=== PATIENT | female | born 1955 | race Caucasian/White ===

== ENCOUNTER 2019-06-23 09:14 | Outpatient (CLI) | payer OTHER, SELFPAY ==
--- NOTE | ~2019-06-23 | CT_ITS ---
EXAMINATION: CT abdomen pelvis w con DATE: 06/23/2019 10:07 INDICATION: Occult blood in stool. TECHNIQUE: Computed tomography (CT) of the abdomen and pelvis was performed with 100 cc Omnipaque 350 intravenous contrast. Automated exposure control and iterative reconstruction technique were employe d. Exam dose: 1129.53 mGy-cm total exam DLP. COMPARISON: 02/18/2018 CT abdomen pelvis 06/07/2017 complete abdominal ultrasound FINDINGS: Mild tree-in-bud infiltrate in the right lower lobe. The lung bases are otherwise clear. Cardiomegaly. No pericardial or pleural effusion. Diffuse hepatic steatosis. No hepatic, splenic, pancreatic, adrenal or solid renal space-occupying ma ss lesion is evident. Status post cholecystectomy. No bile duct or pancreatic duct dilatation. Minimal pancreatic calcification, consistent with chronic pancreatitis. Occasional bilateral subcentimeter probable renal cysts. No urinary tract calculus or hydroureteronep hrosis. The urinary bladder is largely evacuated. This is bilateral fallopian tube ligation. The uter us and adnexal areas are otherwise unremarkable. Small sliding hiatal hernia. Normal appendix. Diverticulosis of the colon; no CT evidence of diverticulitis. There is atherosclerotic calcification of the abdominal aorta and iliac arteries but no aneurysm. No intraperitoneal or retroperitoneal or pelvic mass lesion or adenopathy or ascites. Small fat-containing umbilical hernia. No suspicious osteolytic or osteoblastic lesions are noted. IMPRESSION: Status post cholecystectomy Hepatic steatosis Minimal pancreatic calcifications suggesting mild chronic pancreatitis Small sliding hiatal hernia Diverticulosis of the colon Mild tree-in-bud infiltrate in the right lower lobe Reviewed, dictated and finalized at [facility]. Reviewed, dictated and finalized at location B. [employer]
--- NOTE | ~2019-06-23 | CT_ITS ---
EXAMINATION: CT chest wo con DATE: 06/23/2019 09:51 INDICATION: Lung nodule follow-up TECHNIQUE: Computed tomography (CT) of the chest was performed without intravenous contrast. Automate d exposure control and iterative reconstruction technique were employed. Exam dose: 219.22 mGy-cm to roxanne exam DLP. COMPARISON: 12/28/2016 two-view chest FINDINGS: Mild bilateral apical scarring. There is patchy areas of right lower lobe tree-in-bud infiltrate. There is a calcified right lower lo be pulmonary granuloma (series 4 image 92). No pulmonary infiltrate or consolidation or pulmonary mass lesion is noted otherwise. Right lobe thyroid focal calcification. There is aortic and great vessel and coronary artery calcification. No thoracic aortic aneurysm. No hilar or mediastinal mass lesion or lymphadenopathy is evident. Normal heart size. No pericardial or pleural effusion. Normal morphology of the adrenal glands. Status post cholecystectomy. Degenerative spurring of the thoracic spine. IMPRESSION: Patchy tree-in-bud infiltrates in the right lower lobe which may be due to infection or pneumonitis Calcified right lower lobe pulmonary granuloma consistent with old granulomatous disease Reviewed, dictated and finalized at [facility]. Reviewed, dictated and finalized at location B. [employer] IMPRESSION: Patchy tree-in-bud infiltrates in the right lower lobe which may b e due to infection or pneumonitis Calcified right lower lobe pulmonary granuloma consistent with old granulomatou s disease
[2019-06-23 09:51] LABS: Blood Urea Nitrogen 12 mg/dL (8-26); Estimated Glomerular Filt Rate 56
== END 2019-06-23 09:15 | disposition home or self-care (01) ==
PROVIDERS: PCP Emergency Medicine; Visit Provider Emergency Medicine
DX: R91.1 Solitary pulmonary nodule (principal); R19.5 Other fecal abnormalities; R91.8 Other nonspecific abnormal finding of lung field; Z90.49 Acquired absence of other specified parts of digestive tract; K76.0 Fatty (change of) liver, not elsewhere classified; K86.89 Other specified diseases of pancreas; K44.9 Diaphragmatic hernia without obstruction or gangrene; K57.90 Diverticulosis of intestine, part unspecified, without perforation or abscess without bleeding
CPT/HCPCS: 71250; 74177; Q9967

== ENCOUNTER → 2019-07-25 14:46 | Outpatient (CLI) | payer OTHER, SELFPAY ==
--- NOTE | ~2019-07-25 | MM_ITS ---
EXAMINATION: MM screening [facility] BI w lauren HISTORY: Screening mammogram TECHNIQUE: Craniocaudal and mediolateral oblique 3-D tomosynthesis images were obtained and synthetic 2-D images were generated. CAD analysis was submitted and interpreted. COMPARISON: 08/13/2017, 06/03/2017, 05/16/2015 BREAST PARENCHYMAL COMPOSITION: There are scattered areas of fibroglandular density. FINDINGS: There is no evidence of suspicious mass, calcification, or architectural distortion to sugg est malignancy in either breast. There has been no suspicious interval change. IMPRESSION: 1. No mammographic evidence of malignancy. 2. Recommend routine screening mammography in one year. BI-RADS Category 1: Negative Reviewed, dictated and finalized at location A.
== END ==
PROVIDERS: PCP Emergency Medicine; Visit Provider Emergency Medicine
DX: Z12.31 Encounter for screening mammogram for malignant neoplasm of breast (principal)
CPT/HCPCS: 77063; 77067

== ENCOUNTER → 2021-09-03 11:48 | Outpatient (CLI) | payer MEDICARE, OTHER, SELFPAY ==
--- NOTE | ~2021-09-03 | XR_ITS ---
EXAMINATION: XR toe 2nd RT min 2V EXAM DATE: 09/03/2021 12:00 INDICATION: Initial encounter following injury, with pain of the right 2nd toe. TECHNIQUE: Right 2nd toe frontal, lateral and oblique projections obtained and reviewed. There is no prior study for comparison. FINDINGS: There are no acute right 2nd toe fractures or dislocations identified. There is no subcuta neous gas. The soft tissue is unremarkable. There are no radiopaque foreign bodies. IMPRESSION: 1. Right 2nd toe exam without acute osseous findings. Reviewed, dictated and finalized at location A.
== END ==
PROVIDERS: PCP Emergency Medicine; Visit Provider Emergency Medicine
DX: M79.674 Pain in right toe(s) (principal)
CPT/HCPCS: 73660

== ENCOUNTER → 2022-11-27 11:16 | Outpatient (CLI) | payer MEDICARE, OTHER, SELFPAY ==
--- NOTE | ~2022-11-27 | MM_ITS ---
EXAMINATION: MM screening [facility] BI w lauren HISTORY: Screening mammogram TECHNIQUE: Craniocaudal and mediolateral oblique 3-D tomosynthesis images were obtained and synthetic 2-D images were generated. CAD analysis was submitted and interpreted. COMPARISON: 07/25/2019 bilateral screening mammogram 08/13/2017 diagnostic left mammogram 06/03/2017 bilateral screening mammogram BREAST PARENCHYMAL COMPOSITION: There are scattered areas of fibroglandular density. FINDINGS: There is no evidence of suspicious mass, calcification, or architectural distortion to sugg est malignancy in either breast. There has been no suspicious interval change. IMPRESSION: 1. No mammographic evidence of malignancy. 2. Recommend routine screening mammography in one year. BI-RADS Category 1: Negative Reviewed, dictated and finalized at location A.
== END ==
PROVIDERS: PCP Family Medicine; Visit Provider Family Medicine
DX: Z12.31 Encounter for screening mammogram for malignant neoplasm of breast (principal)
CPT/HCPCS: 77063; 77067

== ENCOUNTER 2023-03-14 13:30 | Emergency (ER) | payer MEDICARE, OTHER, SELFPAY ==
[2023-03-14 13:44] VITALS: BP 131/58; PULSE 79; RESP 24; TEMP 36.9; O2SAT 100
--- NOTE | 2023-03-14 14:29 | ED.URI ---
HPI - URI/Sore Throat General Chief Complaint: Ear Stated Complaint: right ear not able to hear ,cough Time Seen by Provider: 03/14/23 14:08 Source: patient and RN notes reviewed Mode of arrival: ambulatory Limitations: no limitations History of Present Illness HPI Narrative: Patient presents today with a one-week history of right ear clogging and intermittent pain, cough that is productive in worse at night, nasal congestion. She has been taking Mucinex and saline nasal spray without much relief. She is a smoker. States her 3 grandchildren are sick with similar symptoms Related Data Home Medications Medication Instructions Recorded Confirmed alprazolam 0.5 mg tablet 1.25 mg PO DAILY 08/25/22 03/14/23 aspirin 81 mg tablet,delayed 81 mg PO DAILY 08/25/22 03/14/23 release (Adult Low Dose Aspirin) cholecalciferol (vitamin D3) 10 10 mcg PO DAILY 08/25/22 03/14/23 mcg (400 unit) capsule duloxetine 60 mg capsule,delayed 60 mg PO DAILY 08/25/22 03/14/23 release (Cymbalta) gabapentin 300 mg capsule 300 mg PO BID 08/25/22 03/14/23 multivitamin (Daily Multi-Vitamin 1 tablet PO DAILY 08/25/22 03/14/23 tablet) Allergies Allergy/AdvReac Type Severity Reaction Status Date / Time No Known Allergies Allergy Verified 03/05/23 14:16 Review of Systems Review of Systems: CONSTITUTIONAL: Denies body aches, fever, chills, or sweats. EYES: Denies visual changes, redness, or discharge. ENT: Denies rhinorrhea, sore throat, or otalgia.+ congestion, or pain and muffling CARDIOVASCULAR: Denies chest pain, palpitations, or edema. RESPIRATORY: Denies dyspnea.+ cough GASTROINTESTINAL: Denies abdominal pain, nausea, vomiting, or diarrhea. GENITOURINARY: Denies dysuria or hematuria. SKIN: Denies rash, itching, or wounds. MUSCULOSKELETAL: Denies back pain, joint pain, or myalgia. NEUROLOGIC: Denies headache, numbness, tingling, or weakness. PSYCH: Denies depression or anxiety. [facility] Past Medical History Medical History BMI 34.0-34.9,adult BMI 35.0-35.9,adult Cholecystectomy planned Surgical History Surgical History H/O tubal ligation Family History Family History Sibling Family history of Parkinson's disease Mother Family history of diabetes mellitus in first degree relative Family history of heart disease in male family member before age 55 Family history of thyroid disease Diabetes mellitus Family history of coronary artery disease Acute myocardial infarction Father Family history of heart disease in male family member before age 55 Heart disease Diabetes mellitus Sibling , Covid-19 Obese Social History Social History Smoking packs per day: 1 Smoking cigarettes per day: 20.0 Years smoked: 50 Smoking pack-years: 50.00 Smoking status: Current every day smoker Tobacco type: cigarettes Second hand tobacco smoke exposure: Yes Alcohol intake: current Substance use: never Substance use type: does not use Lack of Transportation: No Lack of Food: Never True Current Housing: I Have Housing Concerned About Future Housing: No Difficulty Paying Gas/Electric Bills: No Difficulty Paying for Meds: No Currently Unemployed: No Education: High School Diploma/GED Difficulty w/ Childcare or Family Care: No Living arrangements: with family Additional living arrangements comments: with daughter Occupation/Education: 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
== END 2023-03-14 14:38 | disposition home or self-care (01) ==
PROVIDERS: Emergency Provider Nurse Practitioner; PCP Family Medicine
DX: J06.9 Acute upper respiratory infection, unspecified (principal); H65.01 Acute serous otitis media, right ear; F17.210 Nicotine dependence, cigarettes, uncomplicated; Z79.82 Long term (current) use of aspirin
CPT/HCPCS: 99213; G0463

== ENCOUNTER 2023-07-27 10:00 | Outpatient (CLI) | payer MEDICARE, OTHER, SELFPAY ==
--- NOTE | ~2023-07-27 | DEXA_ITS ---
Bone Density Report Name: LEXI KIM Age: 67 Sex: Female Ethnicity: White Date of : 1955 Indication: postmenopausal; screening for osteoporosis; Referring Provider: Korin Da Silva Study: Bone densitometry was performed. Exam Date: July 27, 2023 Accession number: [id number] Bone Density: Region BMD T-score Z-score Classification AP Spine (L1-L4) 1.366 2.9 4.8 Normal Femoral Neck (Left) 1.115 2.4 4.0 Normal Total Hip (Left) 1.331 3.2 4.5 Normal Femoral Neck (Right) 1.077 2.1 3.7 Normal Total Hip (Right) 1.217 2.3 3.6 Normal Total Hip Mean 1.274 2.8 4.1 Normal World Health Organization criteria for BMD impression classify patients as: Normal (T-score at or above -1.0), Osteopenia (T-score between -1.0 and -2.5), or Osteoporosis (T-score at or below -2.5). 10-year Fracture Risk: FRAX not reported because: All T-scores for Spine Total, Hip Total, Femoral Neck at or above -1.0 Previous Exams: Region Exam Age BMD T-score BMD Change BMD Change Date g/cm2 vs Baseline vs Previous AP Spine(L1-L4) 07/27/2023 67 1.366 2.9 0.086* 0.086* 07/18/2015 59 1.280 2.1 Total Hip(Left) 07/27/2023 67 1.331 3.2 0.011 0.011 07/18/2015 59 1.320 3.1 Total Hip(Right) 07/27/2023 67 1.217 2.3 -0.019 -0.019 07/18/2015 59 1.236 2.4 *Denotes significance at 95% confidence level, LSC for AP Spine = 0.022 g/cm2, LSC for Total Hip = 0.027 g/cm2 Clinical Information Provided by Patient: Smokes Has used the following medications: Vitamin D, MTV Patient maximum height was 63.3 Menopause Age: 51 No regular weight bearing exercise Drinks caffeinated beverages Onset of menses at age 13 Number of children 2 Impression: The patient has normal bone mass. The patient has risk factors, including: smoking. No significant bone loss was observed. Discussion: LOW RISK OF FRACTURE; BONE DENSITY IS WELL ABOVE THE MINIMUM DESIRABLE LEVEL AND ABOVE AVERAGE FOR AGE AND SEX AT ALL SKELETAL SITES TESTED. This person's bone density is above expected limits for age and sex. This is rarely clinically significant, but should be pursued if there are significant musculoskeletal complaints. The patient should follow a healthful lifestyle (good nutrition with adequate calcium and vitamin D, and appropriate weight-bearing exercise). Follow-Up: Consider repeating this study in 5 years or sooner if there
== END 2023-07-27 10:01 ==
LOC: MICIMG 10:02
PROVIDERS: PCP Family Medicine; Visit Provider Nurse Practitioner Family
DX: Z78.0 Asymptomatic menopausal state (principal)
CPT/HCPCS: 77080

== ENCOUNTER 2023-07-27 18:01 | Inpatient (IN) | payer MEDICARE, OTHER, SELFPAY ==
[2023-07-27] VITALS (12 sets, daily range): BP systolic 124–158; BP diastolic 53–79; PULSE 68–85; RESP 12–20; O2SAT 90–98
--- NOTE | ~2023-07-27 | NM_ITS ---
EXAMINATION: NM elisa stress w perfusion DATE: 07/28/2023 14:09 INDICATION: Chest pain TECHNIQUE: Rest images were obtained following intravenous administration of 10 mCi Tc99m tetrofosmin (Myoview). The patient was infused intravenously with Lexiscan (Regadenoson). Then, 31.3 mCi Tc99m t etrofosmin (Myoview) was administered intravenously, and stress images were obtained. Data was recons tructed into short axis and horizontal and vertical long axis SPECT images. Gated SPECT images were a lso obtained. COMPARISON: None. FINDINGS: There is a large severe fixed perfusion defect consistent with infarct involving the apical , with a periapical segments, the mid inferior, mid anterior and mid anteroseptal segments. No revers ible ischemia. 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 There appears to be akinesis of the apex and periapical segments on the gated images. There is left ventricular enlargement with calculated end-diastolic volume of 231 mL. Left ventricular ejection fraction measures 37%. IMPRESSION: 1. Large severe nonreversible infarct involving primarily the left anterior descending coronary arter y vascular distribution and smaller portions of the portion of the circumflex and right coronary ji ry vascular distribution as detailed above. This corresponds to the region of prominent myocardial th inning with associated apical aneurysm evident on the prior CT. No reversible ischemia. 2. Left ventricular enlargement with mildly decreased left ventricular ejection fraction measuring 37 %. Reviewed, dictated and finalized at location B. IMPRESSION: 1. Large severe nonreversible infarct involving primarily the left anterior corby cending coronary artery vascular distribution and smaller portions of the porti on of the circumflex and right coronary artery vascular distribution as detaile d above. This corresponds to the region of prominent myocardial thinning with a ssociated apical aneurysm evident on the prior CT. No reversible ischemia. 2. Left ventricular enlargement with mildly decreased left ventricular ejection fraction measuring 37%.
--- NOTE | ~2023-07-27 | XR_ITS ---
EXAMINATION: XR chest 2V Exam Date/Time: 07/27/2023 19:00 CDT HISTORY: chest pain Comparison: 12/28/2016. RESULT: Lines, tubes, and devices: Cholecystectomy clips. Lungs and pleura: Clear. Cardiomediastinal silhouette: Stable. Other: No acute osseous or upper abdominal finding. IMPRESSION: No acute cardiopulmonary process. Reviewed, dictated and finalized at location K.
--- NOTE | ~2023-07-27 | CT_ITS ---
EXAMINATION: CT abdomen pelvis w con DATE: 07/27/2023 23:42 INDICATION: chest pain, elevated lipase, Hx pancreatic cyst TECHNIQUE: Computed tomography (CT) of the abdomen and pelvis was performed with 100 mL Omnipaque-350 intravenous contrast. Automated exposure control and iterative reconstruction technique were employe d. The dose-length product was 779.81 mGy-cm. COMPARISON: 06/23/2019 02/18/2018; MR abdomen 07/25/2018. FINDINGS: Lower thorax: Mild cardiomegaly. Coronary artery calcification. 10 mm right lower lobe nodule with sm ooth margins. Liver: Normal. Biliary/Gallbladder: Gallbladder is absent. Mild intra and extrahepatic duct dilation. Common bile du ct measures 12 mm in the tucker hepatis. Pancreas: No inflammatory change. Mild duct dilation in the pancreatic head to 4 mm. 1.6 cm cystic le espinoza with peripheral calcification in the pancreatic body. A known uncinate process cyst is not confi dently identified. Scattered pancreatic calcifications as can be seen with chronic pancreatitis. Spleen: Normal. Adrenals:No mass. Kidneys: No suspicious mass, obstructing stone, or hydronephrosis. Stable bilateral simple cysts. GI tract: No small or large bowel dilation. Normal appendix. Diverticulosis without diverticulitis. Mesentery/Peritoneum: No ascites, mass, or free air. Retroperitoneum: No mass. Pelvis: Bilateral tubal ligation clips. Prominent left gonadal, periuterine and paraovarian veins, st able. Pelvic organs are otherwise within normal limits. Soft Tissues: Soft tissues and body wall unremarkable. Bones: No acute osseous finding. IMPRESSION: 1 cm right lower lobe nodule, demonstrating interval growth, recommend PET/CT or tissue sampling. Mild intra and extrahepatic bile duct dilation, and mild pancreatic duct dilation, stable since the p rior examination. No gallbladder, biliary, or pancreatic inflammatory change. No obstructing stone or mass detected. 1.6 cm cystic pancreatic body lesion, demonstrating interval growth. Recommend MRI of the abdomen wit hout and with contrast for further evaluation. Reviewed, dictated and finalized at location K. IMPRESSION: 1 cm right lower lobe nodule, demonstrating interval growth, recommend PET/CT o r tissue sampling. Mild intra and extrahepatic bile duct dilation, and mild pancreatic duct dilati on, stable since the prior examination. No gallbladder, biliary, or pancreatic inflammatory change. No obstructing stone or mass detected. 1.6 cm cystic pancreatic body lesion, demonstrating interval growth. Recommend MRI of the abdomen without and with contrast for further evaluation.
--- NOTE | 2023-07-27 18:02 | ECG_ITS ---
Measurements Intervals [place] Rate: 86 P: 48 TX: 144 QRS: -25 QRSD: 117 T: 105 QT: 372 QTc: 447 Interpretive Statements SINUS RHYTHM RSR' IN V1 OR V2, CONSIDER RIGHT VENTRICULAR HYPERTROPHY OR RIGHT VCD LEFT VENTRICULAR HYPERTROPHY WITH ST-T CHANGE CONSIDER ANTERIOR INFARCT, AGE INDETERMINATE INFERIOR INFARCT, AGE INDETERMINATE ST-T WAVE ABNORMALITY IN ANTEROLATERAL LEADS- CONSIDER ISCHEMIA BASELINE ARTIFACT- II, III, AVF, V4-V6 ABNORMAL ECG NO PREVIOUS ECG AVAILABLE FOR COMPARISON Electronically Signed On 07-27-2023 20:10:17 CDT by Eris Mejia D.O.
[2023-07-27] MEDS: ASPIRIN 81 MG CHEWABLE TABLET 324 MG PO (18:20)
--- NOTE | 2023-07-27 18:25 | ED.GENADULT ---
HPI - General Adult General Chief complaint: Chest Pain Stated complaint: chest pain Time Seen by Provider: 07/27/23 18:19 Source: patient Mode of arrival: ambulatory Limitations: no limitations History of Present Illness HPI narrative: This is a 67-year-old female with PMH of HTN, dm type 2, HLD, 1 pack per day smoker presents to the ED with chief complaint of chest pain beginning around 3:00 p.m. today. Reports she was running errands and the pain started while she was walking. Describes a pressure/heaviness in the central chest that does not radiate. Endorses lightheadedness but no syncope. Does report recent illness of COVID at the beginning of the month and has been dealing with intermittent shortness of breath on exertion since then. Denies cough or hemoptysis. denies vomiting, fevers, chills, abdominal pain, back pain, numbness, weakness. Related Data Home Medications Medication Instructions Recorded Confirmed alprazolam 0.5 mg tablet 1.25 mg PO DAILY 08/25/22 07/05/23 aspirin 81 mg tablet,delayed 81 mg PO DAILY 08/25/22 07/05/23 release (Adult Low Dose Aspirin) cholecalciferol (vitamin D3) 10 10 mcg PO DAILY 08/25/22 07/05/23 mcg (400 unit) capsule duloxetine 60 mg capsule,delayed 60 mg PO DAILY 08/25/22 07/05/23 release (Cymbalta) gabapentin 300 mg capsule 300 mg PO BID 08/25/22 07/05/23 multivitamin (Daily Multi-Vitamin 1 tablet PO DAILY 08/25/22 07/05/23 tablet) Allergies Allergy/AdvReac Type Severity Reaction Status Date / Time No Known Allergies Allergy Verified 07/05/23 10:01 Review of Systems Review of Systems: All systems as dictated in HPI [facility] Past Medical History Medical History BMI 34.0-34.9,adult Cholecystectomy planned Surgical History Surgical History H/O tubal ligation Family History Family History Sibling Family history of Parkinson's disease Mother Family history of diabetes mellitus in first degree relative Family history of heart disease in male family member before age 55 Family history of thyroid disease Diabetes mellitus Family history of coronary artery disease Acute myocardial infarction Father Family history of heart disease in male family member before age 55 Heart disease Diabetes mellitus Sibling , Covid-19 Obese Social History Social History Smoking packs per day: 1 Smoking cigarettes per day: 20.0 Years smoked: 50 Smoking pack-years: 50.00 Smoking status: Current every day smoker Tobacco type: cigarettes Second hand tobacco smoke exposure: Yes Alcohol intake: current Substance use: never Substance use type: does not use Do You Feel Safe in your Home?: Yes Lack of Transportation: No Lack of Food: Never True Current Housing: I Have Housing Concerned About Future Housing: No Difficulty Paying Gas/Electric Bills: No Difficulty Paying for Meds: No Currently Unemployed: No Education: High School Diploma/GED Difficulty w/ Childcare or Family Care: No Living arrangements: with family Additional living arrangements comments: with daughter 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 HEAD: Normocephalic, atraumatic. EYES: PERRLA and EOMI. ENT: Nares clear, no rhinorrhea or epistaxis. Mucous membranes moist. Oropharynx without tonsillar hypertrophy exudate or other lesions. NECK: Supple. No adenopathy or masses. CHEST: No respiratory distress. Clear to auscultation. No wheezes rales or rhonchi HEART: Reg
[2023-07-27 18:37] LABS: Basophils Percent Auto 0.6 % (0.2-1.2); Eosinophils Absolute Auto 0.2 K/mm3 (0-0.3); Eosinophils Percent Auto 3.8 % (0-4.4); Hematocrit 40.6 % (37.0-47.0); Hemoglobin 12.9 g/dL (12.0-15.0); Immature Granulocyte Absolute 0.02 K/mm3 (0.00-0.031); Immature Granulocyte Percent A 0.3 % (0-0.5); Lymphocytes Absolute Auto 2.91 K/mm3 (0.9-3.2); Lymphocytes Percent Auto 46.2 % (18.3-44.2); Mean Corpuscular HGB Conc 31.8 g/dl (32-36); Mean Corpuscular Hemoglobin 29.1 pg (26-34); Mean Corpuscular Volume 91.4 fl (80-100); Mean Platelet Volume 9.7 fl (7.4-10.4); Monocytes Absolute Auto 0.4 K/mm3 (0.1-0.6); Monocytes Percent Auto 6.7 % (2.6-8.5); Neutrophils Absolute Auto 2.7 K/mm3 (1.3-6.7); Neutrophils Percent Auto 42.4 % (45.5-73.1); Platelet Count Result 149 k/mm3 (150-375); Red Blood Count 4.44 M/mm3 (4.2-5.4); Red Cell Distribution Width 13.3 % (11.5-14.5); White Blood Count 6.3 K/mm3 (4.5-10.0)
[2023-07-27 18:49] LABS: INR 0.9; Prothrombin Time 12.8 Seconds (11.1-14.7)
[2023-07-27 18:50] LABS: Partial Thromboplastin Time 29.6 Seconds (22.3-36.8)
[2023-07-27 18:55] LABS: NT Pro B Type Natriuretic Pept 532 pg/mL (19.9-100)
[2023-07-27 18:58] LABS: Alanine Aminotransferase 23 U/L (6-35); Albumin Level 4.3 g/dL (3.5-5.1); Alkaline Phosphatase 75 U/L (38-126); Anion Gap 8 mmol/L (8-16); Aspartate Amino Transferase 29 U/L (14-36); Bilirubin,Total 0.8 mg/dL (0.2-1.3); Blood Urea Nitrogen 9 mg/dL (7-17); Calcium 9.5 mg/dL (8.4-10.2); Carbon Dioxide 27 mmol/L (22-30); Chloride 104 mmol/L (98-107); Estimated CRCL calculation 62 ml/min; Estimated Glomerular Filt Rate > 60; Glucose 145 mg/dL (65-110); Lipase 808 U/L (23-300); Potassium 3.5 mmol/L (3.4-5.0); Sodium 139 mmol/L (137-145)
[2023-07-27 19:08] LABS: Troponin I < 0.012 ng/mL (0.000-0.034)
[2023-07-27] MEDS: ONDANSETRON INJ 4 MG/2 ML VIAL IV PUSH (19:08)
[2023-07-27] MEDS: MORPHINE SULFATE (*CRX) 4 MG/ML INJ IV PUSH (19:08)
[2023-07-27 19:19] LABS: D Dimer 0.29 ug/mL (<0.48)
[2023-07-27 21:31] LABS: Appearance Urine Cloudy (Clear); Bacteria Urine None Seen /hpf; Bilirubin Urine Negative (Negative); Blood Urine Negative (Negative); Color Urine Yellow (Yellow); Glucose Urine UA Negative (Negative); Ketones Urine Negative (Negative); Leukocyte Esterase Ur Trace LEU/UL (Negative); Nitrate Urine Negative (Negative); Non Pathogenic Casts 0-2; Protein Urine Negative (Negative); RBC Urine 0-2 /hpf (0-2); Specific Grav Ur 1.012 (1.001-1.035); Squamous Epithelial Cell Urine Few /hpf (Few); pH Urine 6.5 (5.0-9.0)
[2023-07-27 21:41] LABS: Add Urine Microscopic? YES
[2023-07-27 21:47] LABS: Troponin I < 0.012 ng/mL (0.000-0.034)
--- NOTE | 2023-07-27 22:07 | ECG_ITS ---
Measurements Intervals [place] Rate: 67 P: 56 MN: 180 QRS: -16 QRSD: 128 T: 118 QT: 460 QTc: 487 Interpretive Statements SINUS RHYTHM INTRAVENTRICULAR CONDUCTION DELAY LEFT VENTRICULAR HYPERTROPHY WITH ST-T CHANGE CONSIDER ANTERIOR INFARCT, AGE INDETERMINATE CONSIDER INFERIOR INFARCT, AGE INDETERMINATE BORDERLINE ST-T WAVE ABNORMALITY- ANTEROLATERAL LEADS BASELINE ARTIFACT- V4-V5 ABNORMAL ECG COMPARED TO ECG 07/27/2023 18:07:15 NO SIGNIFICANT CHANGES Electronically Signed On 07-28-2023 6:32:40 CDT by Eris Mejia D.O.
--- NOTE | 2023-07-27 22:07 | PC.NURSE ---
Pt called out c/o chest pain/pressure. EDP MICHELLE Riggs made aware. EDP ordered ekg.
[2023-07-28] VITALS (19 sets, daily range): BP systolic 103–145; BP diastolic 49–64; PULSE 58–73; RESP 14–20; TEMP 36.2–36.6; O2SAT 93–98; BMI 32.5
[2023-07-28 00:50] LABS: Troponin I < 0.012 ng/mL (0.000-0.034)
--- NOTE | 2023-07-28 01:16 | PM.IMHP ---
H&P: HPI History of Present Illness Date/Time: 07/28/23 01:16 Chief Complaint: Chest pain. This is a 67-year-old female patient with a past medical history of type 2 diabetes mellitus chronic hypertension hyperlipidemia smokes 1 pack per day came to the emergency room complaining of chest pain that started this afternoon around 3:00 p.m.. Patient was running errands and headache pain while she was walking. She describes the pain as a heaviness in the central chest that does not radiate. She also had lightheadedness but no syncope. She also complained of some shortness of breath. Patient is awake alert not in acute distress. Denies any fever chills dizziness cough nausea vomiting diarrhea dysuria muscle and joint pains. Denies any abdominal pains. Vital signs in the emergency room was stable. CBC was significant for platelet count of 149. CMP was significant for blood glucose of 145. Troponin 3 sets are within normal range. ProBNP was 532. Lipase was 808. Urinalysis showed WBCs 6-10. No bacteria. EKG showed normal sinus rhythm. Right ventricular hypertrophy and left ventricular hypertrophy. Chest x-ray showed no acute cardiopulmonary abnormality. CT abdomen showed 1 cm right lower lobe nodule demonstrating interval growth. Recommend PET/CT or tissue sampling. Mild intra and extrahepatic bile duct dilatation and mild pancreatic duct dilatation, stable since the prior examination. No gallbladder blurry a pancreatic inflammatory change. No obstructing stone or mass detected. 1.6 cm cystic pancreatic body lesion, demonstrating interval growth. Recommend MRI of the abdomen without and with contrast for further evaluation. Patient was given IV pain control in the emergency room. Cardiology consultation was called from the emergency room. Review of Systems Review of Systems: A 12 point review of system is done and is only positive what is dictated in the history of present illness. [facility] Past Medical History Medical History BMI 34.0-34.9,adult Cholecystectomy planned Surgical History Surgical History H/O tubal ligation Family History Family History Sibling Family history of Parkinson's disease Mother Family history of diabetes mellitus in first degree relative Family history of heart disease in male family member before age 55 Family history of thyroid disease Diabetes mellitus Family history of coronary artery disease Acute myocardial infarction Father Family history of heart disease in male family member before age 55 Heart disease Diabetes mellitus Sibling , Covid-19 Obese Social History Social History Smoking packs per day: 1 Smoking cigarettes per day: 20.0 Years smoked: 50 Smoking pack-years: 50.00 Smoking status: Current every day smoker Tobacco type: cigarettes Second hand tobacco smoke exposure: Yes Alcohol intake: current Substance use: never Substance use type: does not use Do You Feel Safe in your Home?: Yes Lack of Transportation: No Lack of Food: Never True Current Housing: I Have Housing Concerned About Future Housing: No Difficulty Paying Gas/Electric Bills: No Difficulty Paying for Meds: No Currently Unemployed: No Education: High School Diploma/GED Difficulty w/ Childcare or Family Care: No Living arrangements: with family Additional living arrangements comments: with daughter 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
[2023-07-28 03:52] LABS: Influenza A QL RT-PCR Negative (Negative); Influenza B QL RT-PCR Negative (Negative); RSV RNA, RT-PCR Negative (Negative); SARS-CoV-2 RNA PCR Negative (Negative)
--- NOTE | 2023-07-28 05:45 | ADMGEN ---
This patient, Jolly Yin, was admitted to IMU Room 205-01 on 07/28/23 at 0528. Patient/family oriented to hospital policies and general routines including ID bracelet, bed and alarms, visiting hours, pain management, procedures, bathroom and other care routines, personal items, smoking policy, room service/diet, and visiting hours. Information on how to activate the Rapid Response Team has been discussed. Patient/Family are encouraged to report perceived risks to care and to ask questions if they do not understand what they are told or what they should do.
--- NOTE | 2023-07-28 05:57 | ADMGEN ---
This patient, Jolly Yin, was admitted to IMU Room 205-01. Patient/family oriented to hospital policies and general routines including ID bracelet, bed and alarms, visiting hours, pain management, procedures, bathroom and other care routines, personal items, smoking policy, room service/diet, and visiting hours. Information on how to activate the Rapid Response Team has been discussed. Patient/Family are encouraged to report perceived risks to care and to ask questions if they do not understand what they are told or what they should do.
[2023-07-28 08:26] LABS: Glucose Point of Care 152 mg/dl (65-105)
--- NOTE | 2023-07-28 09:09 | EST_ITS ---
Patient Info Name: Jolly Yin Age: 67 years : 1955 Gender: Female Ht: 63 in Wt: 183 lbs BSA: 1.95 m2 HR: 2 bpm BP: 143 / 78 mmHg Heart Rhythm: Sinus Rhythm Exam Date: 07/28/2023 12:49 PM Exam Location: Echo Lab Patient Status: Outpatient Admit Date: 07/28/2023 Staff Ordering Physician: Juanita Lopez MD Attending Provider: Kun Rosales MD Exercise Technologist: Meghan Wallace CT Exercise Physician: Juanita Lopez MD Exam Type: CA stress elisa w NM Study Info Indications R07.89 - Other chest pain A regadenoson stress test was performed. Summary 1. No abnormal ST/T wave changes diagnostic of ischemia with Lexiscan. 2. Occasional PVCs. 3. Please correlate with nuclear medicine images, reported separately. 4. Stress test supervised by and interpreted by Juanita Lopez MD. Protocol: Lexiscan Stress ECG Details Stage: REST Duration (min): 1 min : 10 sec HR (bpm): 71 SBP (mmHg): 143 DBP (mmHg): 78 Stage: REST Duration (min): 15 min : 30 sec HR (bpm): 65 SBP (mmHg): 143 DBP (mmHg): 78 Stage: STAGE 1 Duration (min): 0 min : 59 sec HR (bpm): 75 SBP (mmHg): 133 DBP (mmHg): 63 Stage: RECOVERY Duration (min): 1 min : 0 sec HR (bpm): 77 SBP (mmHg): 133 DBP (mmHg): 63 Stage: RECOVERY Duration (min): 2 min : 0 sec HR (bpm): 74 SBP (mmHg): 133 DBP (mmHg): 63 Stage: RECOVERY Duration (min): 3 min : 0 sec HR (bpm): 75 SBP (mmHg): 140 DBP (mmHg): 66 Stage: RECOVERY Duration (min): 3 min : 7 sec HR (bpm): 74 SBP (mmHg): 140 DBP (mmHg): 66 Rest HR: 65 bpm Peak HR: 81 bpm Rest Sys BP: 143 mmHg Peak Sys BP: 140 mmHg Max Pred HR: 154 bpm % Max Pred HR: 53 % Target HR: 131 bpm Max RPP: 11,340 bpm*mmHg Total Time: 1 min : 0 sec Rest Harvey BP: 78 mmHg Peak Harvey BP: 66 mmHg Total Dose: 0.4 mg Resting ECG Sinus rhythm. Stress ECG Sinus rhythm. No abnormal ST/T wave changes diagnostic of ischemia with Lexiscan. Arrhythmias Occasional PVCs. Report Signatures
--- NOTE | 2023-07-28 11:22 | PM.CNCAR ---
Assessment and Plan Assessment and plan (1) Chest pain: Code(s): R07.9 - Chest pain, unspecified Status: Acute Assessment and Plan: Currently chest pain free. She does have some reproducible chest wall tenderness but states that the pain from this feels different than what she felt yesterday. Troponins are negative x 3. EKGs with sinus rhythm, LVH with secondary STTW abnormality, possible old inferior infarct. No changes on repeat serial EKGs. Given her risk factors for heart disease, will obtain Lexiscan. If Lexiscan is negative, patient can be discharged home. (2) Tobacco abuse: Code(s): Z72.0 - Tobacco use Status: Acute Assessment and Plan: Counseled on smoking cessation (3) Essential hypertension: Code(s): I10 - Essential (primary) hypertension Status: Acute Assessment and Plan: Continue home antihypertensive regimen (4) Hyperlipidemia: Code(s): E78.5 - Hyperlipidemia, unspecified Status: Acute Assessment and Plan: Continue statin (5) Diabetes mellitus: Qualifiers: Diabetes mellitus type: type 2 Diabetes mellitus buttermaker insulin use: without fci use Diabetes mellitus complication status: without complication Qualified Code(s): E11.9 - Type 2 diabetes mellitus without complications Code(s): E11.9 - Type 2 diabetes mellitus without complications Status: Acute Assessment and Plan: Management as per primary team History of Present Illness History of Present Illness Consult date/time: 07/28/23 11:22 Requesting physician: Oneil Gibbs PA-C Consult reason: chest pain Reason For Visit: Unstable Angina Narrative: We are consulted for chest pain. This is a 67 year old female with type 2 diabetes mellitus, hypertension, hyperlipidemia, tobacco dependence, obesity who presented with chest pain that occurred yesterday afternoon. Pain is substernal without radiation. Lasted for a while, but is currently chest pain free. She does have some reproducible chest wall tenderness but states that the pain from this feels different than what she felt yesterday. Troponins are negative x 3. EKGs with sinus rhythm, LVH with secondary STTW abnormality, possible old inferior infarct. No changes on repeat serial EKGs. Review of Systems Review of Systems: All systems reviewed & are unremarkable except as noted in HPI and below (HPI) [facility] Past Medical History Medical History BMI 34.0-34.9,adult Cholecystectomy planned Surgical History Surgical History H/O tubal ligation Family History Family History Sibling Family history of Parkinson's disease Mother Family history of diabetes mellitus in first degree relative Family history of heart disease in male family member before age 55 Family history of thyroid disease Diabetes mellitus Family history of coronary artery disease Acute myocardial infarction Father Family history of heart disease in male family member before age 55 Heart disease Diabetes mellitus Sibling , Covid-19 Obese Social History Social History Smoking packs per day: 1 Smoking cigarettes per day: 20.0 Years smoked: 50 Smoking pack-years: 50.00 Smoking status: Current every day smoker Tobacco type: cigarettes Second hand tobacco smoke exposure: Yes Alcohol intake: never Substance use: never Substance use type: does not use Do You Feel Safe in your Home?: Yes Lack of Transportation: No Lack of Food: Never True Current Housing: I Have Housing Concerned About Future Housing: No Difficulty Paying Gas/Electric Bills: No Difficulty Paying for Meds: No Currently Unemployed: No Education: High School Diploma/GED
--- NOTE | 2023-07-28 12:21 | PC.NURSE ---
Addendum entered by Noelle Aragon RN 07/28/23 13:58: Patient back at 1343 Original Note: Patient left off the floor to go to Nuclear medicine at 1157.
[2023-07-28 12:40] LABS: Glucose Point of Care 117 mg/dl (65-105)
--- NOTE | 2023-07-28 14:23 | WPDGICN ---
Assessment and Plan Assessment and plan (1) Cyst of pancreas: Code(s): K86.2 - Cyst of pancreas Status: Acute Assessment and Plan: CT of the abdomen and pelvis noted 1.6 cm cystic lesion with peripheral calcifications in the pancreatic body along with intra and extrahepatic biliary ductal dilation with mild pancreatic ductal dilation. -Previous history of pancreatic cystic lesion noted on MRI in 2019 measuring 9 mm at that time. -LFT are normal -Asymptomatic -due to increasing size of pancreatic lesion along with the biliary dilation, I would recommended endoscopic ultrasound to be done outpatient with possible fine-needle aspiration. -Consider MRCP if no plan for discharge -will arrange for have an EUS outpatient (2) Dilation of biliary tract: Code(s): K83.8 - Other specified diseases of biliary tract Status: Acute Assessment and Plan: EUS recommended (3) Chronic pancreatitis: Code(s): K86.1 - Other chronic pancreatitis Status: Acute Assessment and Plan: Asymptomatic, monitor (4) Hx of adenomatous colonic polyps: Code(s): Z86.010 - Personal history of colonic polyps Status: Acute Assessment and Plan: Recommend outpatient colonoscopy due to history of adenomatous colon polyps Will arrange for her. (5) Chest pain: Code(s): R07.9 - Chest pain, unspecified Status: Acute Assessment and Plan: Cardiology following (6) BMI 34.0-34.9,adult: Code(s): Z68.34 - Body mass index [BMI] 34.0-34.9, adult Status: Acute (7) Essential hypertension: Code(s): I10 - Essential (primary) hypertension Status: Acute (8) Hyperlipidemia: Code(s): E78.5 - Hyperlipidemia, unspecified Status: Acute (9) Diabetes mellitus: Qualifiers: Diabetes mellitus type: type 2 Diabetes mellitus intermediate frame tender insulin use: without chcf use Diabetes mellitus complication status: without complication Qualified Code(s): E11.9 - Type 2 diabetes mellitus without complications Code(s): E11.9 - Type 2 diabetes mellitus without complications Status: Acute (10) Tobacco abuse: Code(s): Z72.0 - Tobacco use Status: Acute GI Consult Note Consult date/time: 07/28/23 14:00 Reason for consult: increasing pancreatic mass HPI: Jolly Yin is a 67 year old female asked to be seen at the request of the hospitalist for pancreatic mass increasing in size. Past medical history of type 2 diabetes on metformin, hypertension, hyperlipidemia, tobacco abuse, pancreatic cyst and adenomatous colon polyps. Surgical history including a cholecystectomy. MRI abd in 2019 noted 9 mm lesion in body of pancreas, and 6 mm lesion in ucinate process of pancreas (recs reviewed). Came to [facility] ER yesterday 07/26 for midsternal chest pain that began around 3:00 p.m. in the afternoon. She states prior to that she had spicy homemade tacos. She has never had pain like this before and it has since stopped. Troponins x 3 were negative along with normal EKG and she did go down for stress test this afternoon, results are pending. noted to have an elevated lipase of 808, CT of the abdomen and pelvis noted mild intra and extrahepatic biliary ductal dilation, common bile duct measuring 12 mm with mild ductal dilation of the pancreatic head to 4 mm, 1.6 cm cystic lesion with peripheral calcifications in the pancreatic body along with scattered pancreatic calcifications that can be seen with chronic pancreatitis, normal appearing liver and absent gallbladder. Denies history of acute pancreatitis, chronic alcohol abuse. She has been a diabetic for 5-6 years maintained on metformin. Family history of pancreatic cancer in a paternal grandfather. No family history of other GI malignancies. She denies any epigastric postprandial abdominal pain, nausea, vomiting, dysphagia, odynophagia, diarrhea, constipation, melena or hematochezia. S
[2023-07-28 16:11] LABS: Cholesterol 123 mg/dL (0-200); HDL Direct 39 mg/dL; Triglycerides 213 mg/dL (<150)
[2023-07-28 16:22] LABS: LDL Cholesterol Direct 63 mg/dL
[2023-07-28 16:41] LABS: Thyroid Stimulating Hormone 0.445 uIU/mL (0.465-4.680)
--- NOTE | 2023-07-28 16:42 | PM.IMPN ---
Progress Note: A&P Assessment and Plan (1) Hx of adenomatous colonic polyps: Code(s): Z86.010 - Personal history of colonic polyps Status: Acute (2) Chronic pancreatitis: Code(s): K86.1 - Other chronic pancreatitis Status: Acute (3) Dilation of biliary tract: Code(s): K83.8 - Other specified diseases of biliary tract Status: Acute (4) Chest pain: Code(s): R07.9 - Chest pain, unspecified Status: Acute (5) BMI 34.0-34.9,adult: Code(s): Z68.34 - Body mass index [BMI] 34.0-34.9, adult Status: Acute (6) Cyst of pancreas: Code(s): K86.2 - Cyst of pancreas Status: Acute (7) RAYMOND (obstructive sleep apnea): Code(s): G47.33 - Obstructive sleep apnea (adult) (pediatric) Status: Acute (8) Depression with anxiety: Code(s): F41.8 - Other specified anxiety disorders Status: Acute (9) Vitamin D deficiency: Code(s): E55.9 - Vitamin D deficiency, unspecified Status: Acute (10) Tobacco abuse: Code(s): Z72.0 - Tobacco use Status: Acute (11) GERD (gastroesophageal reflux disease): Code(s): K21.9 - Gastro-esophageal reflux disease without esophagitis Status: Acute (12) Hyperlipidemia: Code(s): E78.5 - Hyperlipidemia, unspecified Status: Acute (13) Essential hypertension: Code(s): I10 - Essential (primary) hypertension Status: Acute (14) Lung nodule seen on imaging study: Code(s): R91.1 - Solitary pulmonary nodule Status: Acute Plan Advanced patient to full inpatient status She has multiple normal findings which are being addressed She underwent Lexiscan nuclear stress test today which was abnormal Cardiology spoke with the patient in detail and plan to take her to cardiac catheterization lab in the morning She has the pancreatic cyst which is slowly increasing in size GI consult given for evaluation and further treatment recommendations She also had finding of a lung nodule which she knows is there but she has not followed up with Pulmonary in the past Pulmonary consult given for evaluation and further treatment recommendations as well Patient has mildly elevated lipase as well which will be followed closely Patient started on gentle IV hydration Continue with current medications ? Patient seen and examined at bedside during my morning rounds ? Collaborated with patient's nurse at the bedside in detail and addressed all concerns ? Labs, electrolytes, radiology, investigations and test results reviewed ? Consult/Nursing/Ancilliary notes on the chart reviewed and appreciated ? Spoke with patient/family at the bedside and answered all the questions that they had Repeat labs in a.m. Electrolyte replacement as per protocol. Patient will be monitored very closely on the floor. Further recommendations as per the hospital course. Dependence on nicotine from cigarettes: Tobacco abuse counseling: Patient smokes cigarettes on a chronic basis. Strictly advised patient to cut down on or quit smoking. Nicotine patch ordered. ~5 minutes spent on tobacco cessation counseling with the patient. Websites - http://smokefree.gov & http://www.[employer].com ? Quitlines - 7-858-HJGE-NOW ( ) ? Smokefree Apps - [employer] ? Text Messages - SmokefreeTXT ([place] the [place] [id number]) Personal history of noncompliance with medical treatment and regimen: STRICTLY advised patient to be compliant with meds and medical recommendations. Advised patient to get established with a PCP upon discharge, take care of meds, diet and bring patient's life back on track. Time Spent With Patient Time with patient: 25 - 35 minutes Subjective Date/time seen: 07/28/23 16:42 Interval history: Patient seen and evaluated bedside. Feels weak and tired. She has been a chronic smoker for 50 years. Cardiology, Pulmonary and GI consult given to address her multiple findings Revi
[2023-07-28] MEDS: NICOTINE (*PBKC) 21 MG PATCH 1 PATCH TRANSDERM (17:44)
[2023-07-28] MEDS: SODIUM CHLORIDE 0.9% IV 1,000 ML 75 ML IV CONT (17:46)
--- NOTE | 2023-07-28 18:02 | PM.CNPUL ---
Assessment and Plan Assessment and plan (1) Lung nodule seen on imaging study: Code(s): R91.1 - Solitary pulmonary nodule Status: Acute Assessment and Plan: RLL 1 cm nodule on the abdomen-pelvis CT scan Jul 27, 2023 that is larger per the radiologist; RAD does not say how much larger it is. The side by side images look similar. This appears to be a calcified granuloma, can be evaluated with PET scan, if necessary, out-patient. . She has other more urgent issues. She will have a cardiac catheterization tomorrow. She has a pancreatic cyst, needs more evaluation. (2) Tobacco abuse: Code(s): Z72.0 - Tobacco use Status: Acute Assessment and Plan: One pack per day average for 50 years, now has a nicotine patch in place. She has never had a quit attempt previously. She is having sweating and some anxiety being off her cigarettes, does want to quit smoking. She is not telling me anything that suggests she has COPD, does not have emphysema on the CT scan. (3) RAYMOND (obstructive sleep apnea): Code(s): G47.33 - Obstructive sleep apnea (adult) (pediatric) Status: Acute Assessment and Plan: She is using hospital CPAP 7 cm while she is here. She is 100% complaint by report. Will see her in office for proper follow up. Needs a repeat titration as her current pressure 7 cm is not as effective as it once was. Plan * Nodule evaluation; dedicated chest CT w/o contrast is indicated. She may benefit from a PET scan as an outpatient unless the pancreas appears to be a source of malignancy. I really believe this nodule is a granuloma and is not an active problem. Long-term, she is a candidate for low-dose CT screening because she has a 50 pack-year history of smoking and she is still smoking, she is in the age range that we continue to screen for lung cancer. We can do this in the office. * Tobacco cessation- will need termite control servicer support. She quit smoking this admission, she is on a nicotine patch. Behavioral modification would be helpful. * outpatient pulmonary function testing/6 min walk; has not had in the past. She is active and denies symptoms. * Sleep follow up; her CPAP 7 is not as beneficial as it initially was; she has not had any regular follow-up, does not get supplies on a regular basis. She has no dreams at night and wakes up tired although she is not sleepy in the day. She did get her device replaced during the [employer] recall. The internet shows that there is an active case against [employer] due to the chemicals in the foam cushion in a that is carcinogenic. Can also cause asthma, lung problems, multiple types of cancer. History of Present Illness History of Present Illness Consult date: 07/28/23 Requesting physician: Kun Rosales MD Chief complaint: lung nodule RLL Narrative: seen at 18:00 on July 28, 2023 NEW: Jolly Yin is a 67 year-old woman with a lung nodule in the RLL seen on abdomen/pelvis CT scan, now 1 cm, increased in size compared to 06/23/2019 02/18/2018; MR abdomen 07/25/2018. Last chest CT was 07/13/2019. She knows that she has a nodule in the right lung. Over the last several years, she had to change doctors because her insurance did not cover seeing Dr. Magaña, she switched to another doctor who left and she has just gotten in with Dr. Moore who is now managing her medical problems. She tells me she does not have COPD, has not used inhalers, she does not wheeze. She does not cough frequently but she does have a significant amount of secretions light colored which sometimes come from her chest but often come from her sinuses. She does not have recurrent sinus infections but she does have significant environmental allergies. She took a cruise in May to June of this yea
[2023-07-28 18:23] LABS: Hemoglobin A1C 6.8 % (<5.7)
[2023-07-28 18:44] LABS: Glucose Point of Care 141 mg/dl (65-105)
[2023-07-28 20:43] LABS: Glucose Point of Care 104 mg/dl (65-105)
[2023-07-29] VITALS (19 sets, daily range): BP systolic 104–152; BP diastolic 51–76; PULSE 62–84; RESP 13–19; TEMP 35.2–36.4; O2SAT 93–98
--- NOTE | 2023-07-29 | ECHO_ITS ---
Patient Info Name: Jolly Yin Age: 67 years : 1955 Gender: Female Ht: 63 in Wt: 183 lbs BSA: 1.95 m2 HR: 78 bpm BP: 140 / 62 mmHg Heart Rhythm: Sinus Rhythm Technical Quality: Fair Exam Date: 07/29/2023 1:09 PM Exam Location: Echo Lab Exam Room: Patient Status: Inpatient Admit Date: 07/28/2023 Staff Ordering Physician: Juanita Lopez MD (loida/belén) Cross Tie Cutter: Vandana [place] RDCS Attending Provider: Kun Rosales MD Referring Physician: John GOMEZ; Exam Type: CA echo dop color flow w con Study Info Indications - chest pain EVAL LV EF CHEST PAIN S/P CATH Complete two-dimensional, color flow and Doppler transthoracic echocardiogram is performed with contrast to opacify the left ventricle and to improve the deliniation of the left ventricle endocardial borders. Contrast/Agitated Saline Contrast/Ag. Saline: Definity Amount: 2.00 ml Existing IV Access: Yes IV Access Condition: patent with no signs of infiltration Summary 1. Left ventricular chamber dimension is mildly enlarged. 2. Left ventricular systolic function is mildly reduced, estimated at 40-45%. 3. The apex appears akinetic and aneurysmal. 4. The left ventricular diastolic function is grade I diastolic dysfunction. 5. Right ventricular systolic function is normal. 6. There is small anterior pericardial effusion. 7. No significant valvular disease. Left Ventricle The apex appears akinetic and aneurysmal. Left ventricular chamber dimension is mildly enlarged. Left ventricular systolic function is mildly reduced, estimated at 40-45%. There is no increased left ventricular wall thickness. The left ventricular diastolic function is grade I diastolic dysfunction. Right Ventricle Right ventricular chamber dimension is normal. Right ventricular systolic function is normal. Left Atria Left atrial chamber dimension is normal. Right Atria Right atrial chamber dimension is normal. Atrial Septum Intact interatrial septum visualized by color flow imaging. Aortic Valve The aortic valve is not well visualized. There is no aortic valve regurgitation. There is mild aortic valve calcification. Pulmonic Valve The pulmonic valve is not well visualized. Mitral Valve There is trace mitral valve regurgitation. Tricuspid Valve There is trace tricuspid valve regurgitation. Pericardium/Pleural The pericardium appears epicardial fat pad. There is small anterior pericardial effusion. Inferior Vena Cava Inferior vena cava is not well visualized. Aorta The aortic root size at the sinus of Valsalva is normal. Left Ventricular Outflow Tract Name Value Normal LVOT 2D LVOT Diameter 1.98 cm LVOT Doppler LVOT Peak Gradient 5 mmHg LVOT Mean Gradient 3 mmHg LVOT VTI 23.01 cm LVOT VTI/AV VTI Ratio 0.74 LVOT Stroke Volume 71.00 ml LVOT CO 15.23 l/min LVOT CI 7.80 L/min/m2 Pulmonic Valve Na
[2023-07-29 04:59] LABS: Basophils Percent Auto 0.4 % (0.2-1.2); Eosinophils Absolute Auto 0.3 K/mm3 (0-0.3); Eosinophils Percent Auto 5.3 % (0-4.4); Hematocrit 39.5 % (37.0-47.0); Hemoglobin 12.9 g/dL (12.0-15.0); Immature Platelet Fraction Pct 3.3 % (0.9-11.2); Lymphocytes Absolute Auto 2.25 K/mm3 (0.9-3.2); Lymphocytes Percent Auto 45.8 % (18.3-44.2); Mean Corpuscular HGB Conc 32.7 g/dl (32-36); Mean Corpuscular Hemoglobin 29.3 pg (26-34); Mean Corpuscular Volume 89.8 fl (80-100); Mean Platelet Volume 9.9 fl (7.4-10.4); Monocytes Absolute Auto 0.3 K/mm3 (0.1-0.6); Monocytes Percent Auto 6.9 % (2.6-8.5); Neutrophils Percent Auto 41.6 % (45.5-73.1); Platelet Count Result 132 k/mm3 (150-375); Red Cell Distribution Width 13.5 % (11.5-14.5); White Blood Count 4.9 K/mm3 (4.5-10.0)
[2023-07-29 05:14] LABS: Anion Gap 5 mmol/L (8-16); Blood Urea Nitrogen 10 mg/dL (7-17); Calcium 8.7 mg/dL (8.4-10.2); Carbon Dioxide 30 mmol/L (22-30); Chloride 105 mmol/L (98-107); Estimated CRCL calculation 55 ml/min; Estimated Glomerular Filt Rate > 60; Glucose 111 mg/dL (65-110); Lipase 292 U/L (23-300); Magnesium 2.1 mg/dL (1.6-2.3); Potassium 3.9 mmol/L (3.4-5.0); Sodium 140 mmol/L (137-145)
[2023-07-29 06:06] LABS: Free T4 Free Thyroxine 0.93 ng/mL (0.78-2.19)
[2023-07-29 08:00] LABS: Glucose Point of Care 168 mg/dl (65-105)
[2023-07-29] MEDS: ASPIRIN 81 MG ENTERIC TABLET PO (08:17)
[2023-07-29] MEDS: ROSUVASTATIN 20 MG TABLET 40 MG PO (08:17)
[2023-07-29] MEDS: NICOTINE (*PBKC) 21 MG PATCH 1 PATCH TRANSDERM (08:18)
--- NOTE | 2023-07-29 09:45 | WPDMODSED ---
Moderate Sedation Note-Pt Data Patient Data Diagnosis: Abnormal stress test, coronary artery disease Present Complaint: Abnormal stress test, coronary artery disease Procedure to be performed/Plan: Coronary angiography, left heart cath, +/- PCI Allergies Allergy/AdvReac Type Severity Reaction Status Date / Time No Known Allergies Allergy Verified 07/05/23 10:01 Home Medications Medication Instructions Recorded Confirmed Type alprazolam 0.5 mg tablet 0.5 mg PO BID 08/25/22 07/28/23 History aspirin 81 mg tablet,delayed 81 mg PO DAILY 08/25/22 07/28/23 History release (Adult Low Dose Aspirin) cholecalciferol (vitamin D3) 10 10 mcg PO DAILY 08/25/22 07/28/23 History mcg (400 unit) capsule duloxetine 60 mg capsule,delayed 60 mg PO DAILY 08/25/22 07/28/23 History release (Cymbalta) gabapentin 300 mg capsule 300 mg PO BID 08/25/22 07/28/23 History multivitamin (Daily Multi-Vitamin 1 tablet PO DAILY 08/25/22 07/28/23 History tablet) metformin 500 mg tablet 500 mg PO DAILY #90 tabs 06/28/23 07/28/23 Rx rosuvastatin 40 mg tablet (Crestor) 40 mg PO DAILY #90 tabs 06/28/23 07/28/23 Rx irbesartan 75 mg tablet 75 mg PO DAILY #90 tabs 07/05/23 07/28/23 Rx lisinopril 10 mg tablet 10 mg PO DAILY 07/28/23 07/28/23 History Current Medications: Active Medications Alprazolam (Alprazolam (*Crx) 0.5 Mg Tablet) 0.5 mg PO BID [facility] Aspirin (Aspirin 81 Mg Enteric Tablet) 81 mg PO QAM [facility] Last Admin: 07/29/23 08:17 Dose: 81 mg Dextrose (Dextrose 50% 25 Gm/50 Ml Syringe) 12.5 gm IV PUSH PRN PRN; Protocol PRN Reason: Hypoglycemia Duloxetine HCl (Duloxetine Hcl 60 Mg Capsule.Dr) 60 mg PO DAILY [facility] Gabapentin (Gabapentin 300 Mg Capsule) 300 mg PO BID [facility] Glucagon (Glucagon For Inj 1 Mg Vial) 1 mg IM PRN PRN; Protocol PRN Reason: Hypoglycemia Glucose (Glucose Oral Gel 15 Gm Of Glucse In 37.5 Gm Tube) 15 gm PO PRN PRN; Protocol PRN Reason: Hypoglycemia Hydromorphone HCl (Hydromorphone Hcl Inj (*Crx) 1 Mg/Ml Syr) 0.5 mg IV PUSH Q4H PRN PRN Reason: Pain Rated 7-10 Dextrose (Dextrose 5% 1,000 Ml) 1,000 mls @ 100 mls/hr IVPB PRN PRN; Protocol PRN Reason: Hypoglycemia Sodium Chloride (Normal Saline Iv) 1,000 mls @ 125 mls/hr IV CONT .Q8H ONE Stop: 07/29/23 17:43 Insulin Aspart (Insulin Aspart (*Bkc) 100 Units/Ml) 2 - 5 units SUB-Q TIDWM MIGUEL; Protocol Last Admin: 07/29/23 08:14 Dose: Not Given Insulin Aspart (Insulin Aspart (*Bkc) 100 Units/Ml) 1 - 2 units SUB-Q HS MIGUEL; Protocol Last Admin: 07/28/23 21:38 Dose: Not Given Nicotine (Nicotine (*Pbkc) 21 Mg Patch) [facility] [place] Admin: 07/29/23 08:18 Dose: 1 patch Ondansetron HCl (Ondansetron Inj 4 Mg/2 Ml Vial) 4 mg IV PUSH Q4H PRN PRN Reason: Nausea Perflutren Lipid Microsphere (Perflutren Lipid Microspheres 1.5 Ml Vial Diluted To 10 Ml Total Volume) 0 ml IV PUSH ONCE PRN; Protocol PRN Reason: adequate visualization Stop: 07/31/23 15:01 Rosuvastatin Calcium (Rosuvastatin 20 Mg Tablet) 40 mg PO QAM [facility] Last Admin: 07/29/23 08:17 Dose: 40 mg Sedation/Anesthesia: No previous sedation/anesthesia problems (including family history). [facility] Past Medical History Medical History BMI 34.0-34.9,adult Cholecystectomy planned Chronic pancreatitis Dilation of biliary tract Hx of adenomatous colonic polyps RAYMOND (obstructive sleep apnea) Surgical History Surgical History H/O tubal ligation Family History Family History Sibling Family history of Parkinson's disease Mother Family history of diabetes mellitus in first degree relative Family history of heart disease in male family member before age 55 Family history of thyroid disease Diabetes mellitus Family history of coronary artery disease Acute myocardial infarction Father Family history of heart di
--- NOTE | 2023-07-29 09:46 | WPDCARDPROC ---
Cardiac Cath Procedure Note Date of procedure:: 07/29/23 Performing physician:: CATHETERIZATION LABORATORY REPORT Procedure Date: 07/28/2022 Cement Tester Assistant: Juanita Lopez M.D., [facility]? Referring Physician: Juanita Lopez M.D. ? Anesthesia: Versed and Fentanyl were ordered and given in my presence at 09:09, procedure ended at 09:36. Supervision of nurse monitored moderate sedation with Versed and Fentanyl was provided for 27 minutes. Total of Versed 1mg and Fentanyl 50mcg were administered by the Scientific Recruiter RN Emily Roberts. Pre-op Diagnosis: Coronary artery disease Post-op Diagnosis: 1. Single vessel coronary artery disease with COT ASSEMBLER of the mid LAD. 2. Left ventricular end-diastolic pressure of 19mmHg Procedure(s): 1. Moderate sedation 2. Ultrasound-guided access of the right radial artery 3. Coronary angiography 4. Left heart catheterization Access Site: Right radial artery Brief History and Clinical Indications: Patient is a 67 year old female who is referred for [facility] for abnormal stress test. All risks, benefits and alternatives to left heart catheterization with or without percutaneous coronary intervention was discussed at length with the patient. Risk of complications including but not limited to bleeding, infection, arrhythmia, stroke, worsening kidney function, blood loss, groin hematoma, limb loss, emergency coronary artery bypass grafting, and even were discussed with the patient and all questions were answered. The patient understood and wished to proceed. Time out called, patient name, date of , medical record number, allergies, procedure performed, identify Cement Tester Assistant, patient and staff member concurred with accurate data, procedure carried on. Findings: LEFT HEART CATHETERIZATION FINDINGS: 1. Left main: The left main coronary artery is widely patent without any significant obstructive disease. 2. Left anterior descending: The proximal LAD has mild diffuse disease. The LAD is COT ASSEMBLER in the mid portion. There are [id number] collaterals to a diagonal branch. Retrograde flow from the diagonal branch provides some faint antegrade flow to the LAD. 3. Left circumflex: The left circumflex artery has mild diffuse disease. The OM branch has luminal irregularities. No significant obstructive angiographic disease. 4. Right coronary artery: The RCA is the dominant vessel. The RCA has diffuse mild disease with a moderate stenosis in the mid portion. No significant obstructive angiographic disease. There are tjpee-dv-oany collaterals to the septal branches. 5. Left ventricle: A. End-diastolic pressure 19 mmHg. B. LV gram deferred. C. No significant gradient across aortic valve on catheter pullback. Description of Procedure: Informed consent signed and placed in the chart. Patient transferred to manager lab room. Prepped and draped in usual sterile fashion. 2% lidocaine injected subcutaneously in right wrist area. 22-gauge venipuncture catheter used to access the right radial artery under ultrasound guidance. 6-FR slender sheath placed in right radial artery. Nitroglycerine and Verapamil were given intraarterial through the sheath. Versacore wire advanced under fluoroscopy 5F Tig 4 diagnostic catheter engaged Left Main Coronary Artery. 5F Tig 4 diagnostic catheter engaged Right Coronary Artery Multiple orthogonal angiogram obtained and reviewed 5F Pigtail diagnostic catheter crossed aortic valve to obtain LVEDP, LV angiogram deferred. Hemostasis was achieved by application of TR band. Post Operative Condition: Stable No significant blood loss Disposition: Floor Plan: The patient will be monitored in the recovery area. Continue aggressive medical therapy and risk factor modification. See consult note for additional recommendations and plan. ? Juanita Lopez M.D. Interventional Cardiology
--- NOTE | 2023-07-29 10:00 | PM.PNCARD ---
Progress Note: A&P Assessment and Plan (1) Coronary artery disease: Code(s): I25.10 - Atherosclerotic heart disease of [place] coronary artery without angina pectoris Status: Acute Assessment and Plan: Presented with chest pain, without recurrence of pain since being in hospital. Troponins negative x 3. EKGs with LVH with secondary STTW abnormality, possible old inferior infarct. No changes on repeat serial EKGs. Lexiscan shows a large severe fixed perfusion defect consistent with infarct involving the apical, with a periapical segments, the mid inferior, mid anterior and mid anteroseptal segments. No reversible ischemia. Review of the CT of the abdomen and pelvis on admission demonstrates corresponding marked myocardial thinning with an apical aneurysm of the LV. There appears to be akinesis of the apex and periapical segments on the gated images. There is left ventricular enlargement with a calculated end-diastolic volume of 231mL. LVEF is 37%. Given the abnormal stress test results, recommended cardiac catheterization. Cardiac catheterization shows: 1. Single vessel coronary artery disease with [employer] of the mid LAD. 2. Left ventricular end-diastolic pressure of 19mmHg Will work on optimizing her medical therapy. Continue ASA, high-intensity statin. Will start beta [place]. Will obtain transthoracic echocardiogram to evaluate LVEF. (2) Tobacco abuse: Code(s): Z72.0 - Tobacco use Status: Acute Assessment and Plan: Counseled on smoking cessation (3) Essential hypertension: Code(s): I10 - Essential (primary) hypertension Status: Acute Assessment and Plan: Stable, will need to clarify if patient was taking both Irbesartan and Lisinopril at home. (4) Hyperlipidemia: Code(s): E78.5 - Hyperlipidemia, unspecified Status: Acute Assessment and Plan: Continue statin (5) Diabetes mellitus: Qualifiers: Diabetes mellitus type: type 2 Diabetes mellitus alf insulin use: without alf use Diabetes mellitus complication status: without complication Qualified Code(s): E11.9 - Type 2 diabetes mellitus without complications Code(s): E11.9 - Type 2 diabetes mellitus without complications Status: Acute Assessment and Plan: Management as per primary team Subjective Date/time seen: 07/29/23 10:00 Interval history: Reason for visit: Chest pain, abnormal stress test, coronary artery disease HPI: We are consulted for chest pain. This is a 67 year old female with type 2 diabetes mellitus, hypertension, hyperlipidemia, tobacco dependence, obesity who presented with chest pain that occurred yesterday afternoon. Pain is substernal without radiation. Lasted for a while, but is currently chest pain free. She does have some reproducible chest wall tenderness but states that the pain from this feels different than what she felt yesterday. Troponins are negative x 3. EKGs with sinus rhythm, LVH with secondary STTW abnormality, possible old inferior infarct. No changes on repeat serial EKGs. Date of service 07/28: [facility] today. Review of Systems Review of Systems: All systems reviewed & are unremarkable except as noted in HPI and below (HPI) Exam Const: General: no acute distress Other: Obese female HENMT: Mouth: Yes moist mucous membranes Eyes: General: appearance normal, both eyes and all related structures Sclera: sclerae normal Resp: Effort & Inspection: normal respiratory effort Cardio: Rate: regular rate Rhythm: regular rhythm Skin: General skin exam: normal color Neuro: Speech: normal speech Psych: Mental Status: mental status grossly normal Affect: normal affect Objective Data Vital Signs Vital Signs: Vital Signs - 24 hr 07/28/23 12:03 07/28/23 12:00 07/28/23 13:50 Temperature 36.6 C Pulse Rate 66 63 Respiratory Rate 14 Blood Pressure 124/51 L Pulse Oximetry 95 Oxygen Delivery Room
[2023-07-29] MEDS: METOPROLOL SUCCINATE EXT REL 25 MG TABCR PO (13:24)
[2023-07-29] MEDS: DULoxetine HCL 60 MG CAPSULE.DR PO (13:24)
[2023-07-29] MEDS: SODIUM CHLORIDE 0.9% IV 1,000 ML 125 ML IV CONT (13:26)
--- NOTE | 2023-07-29 14:28 | PC.NURSE ---
On 07/29/23, the student, [Flori Payan ], provided care and completed Inside documentation on this patient. I have reviewed the student's documentation and agree with the findings.
[2023-07-29] MEDS: PERFLUTREN LIPID MICROSPHERES 1.5 ML VIAL DILUTED TO 10 ML TOTAL VOLUME IV PUSH (14:40)
--- NOTE | 2023-07-29 15:01 | IVDEFINITY ---
Prior to administration of IV Definity the patient was educated on the risks and benefits of the imaging enhancing agent including potential adverse side effects. The patient verbalized understanding. Allergies were verified. No exclusion criteria were identified and at least one of the following inclusion criteria were met: 1) physician request, 2) patient technically difficult to image (per the [place] [employer] Echocardi[employer] guidelines of two or more segments not discernable within the apical view), or 3) questionable left ventricular function. ?
--- NOTE | 2023-07-29 15:44 | PM.DS ---
DS: Admitting Diagnosis Discharge Date 07/29/2023: Admitting Diagnosis Assessment and plan (1) Chest pain: ?Code(s): R07.9 - Chest pain, unspecified ?Status:?Acute ?Assessment and Plan: Chest pain unlikely cardiac in etiology.? Cardiology consultation has been requested.? Patient was given aspirin in the emergency room. Pancreatic cyst interval increase in size.? Consider GI consultation in the morning. Chronic anxiety.? Continue Cymbalta.? Chronic hypertension.? Resume home medications. Type 2 diabetes mellitus.? Sliding scale insulin correction.? Hyperlipidemia.? Continue statins. DS: Discharge Diagnosis Discharge Diagnosis (1) Coronary artery disease: Code(s): I25.10 - Atherosclerotic heart disease of [place] coronary artery without angina pectoris Status: Acute (2) RAYMOND (obstructive sleep apnea): Code(s): G47.33 - Obstructive sleep apnea (adult) (pediatric) Status: Acute (3) Lung nodule seen on imaging study: Code(s): R91.1 - Solitary pulmonary nodule Status: Acute (4) Chronic pancreatitis: Code(s): K86.1 - Other chronic pancreatitis Status: Acute (5) Chest pain: Code(s): R07.9 - Chest pain, unspecified Status: Acute (6) Unstable angina pectoris: Code(s): I20.0 - Unstable angina Status: Acute (7) Cyst of pancreas: Code(s): K86.2 - Cyst of pancreas Status: Acute (8) Depression with anxiety: Code(s): F41.8 - Other specified anxiety disorders Status: Acute (9) Vitamin D deficiency: Code(s): E55.9 - Vitamin D deficiency, unspecified Status: Acute (10) Tobacco abuse: Code(s): Z72.0 - Tobacco use Status: Acute (11) GERD (gastroesophageal reflux disease): Code(s): K21.9 - Gastro-esophageal reflux disease without esophagitis Status: Acute (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 01:16 Chief Complaint: Chest pain.? This is a 67-year-old female patient with a past medical history of type 2 diabetes mellitus chronic hypertension hyperlipidemia smokes 1 pack per day came to the emergency room complaining of chest pain that started this afternoon around 3:00 p.m..? Patient was running errands and headache pain while she was walking.? She describes the pain as a heaviness in the central chest that does not radiate.? She also had lightheadedness but no syncope.? She also complained of some shortness of breath.? Patient is awake alert not in acute distress.? Denies any fever chills dizziness cough nausea vomiting diarrhea dysuria muscle and joint pains.? Denies any abdominal pains.? Vital signs in the emergency room was stable.? CBC was significant for platelet count of 149.? CMP was significant for blood glucose of 145.? Troponin 3 sets are within normal range.? ProBNP was 532.? Lipase was 808.? Urinalysis showed WBCs 6-10.? No bacteria.? EKG showed normal sinus rhythm.? Right ventricular hypertrophy and left ventricular hypertrophy.? Chest x-ray showed no acute cardiopulmonary abnormality.? CT abdomen showed 1 cm right lower lobe nodule demonstrating interval growth.? Recommend PET/CT or tissue sampling.? Mild intra and extrahepatic bile duct dilatation and mild pancreatic duct dilatation, stable since the prior examination.? No gallbladder blurry a pancreatic inflammatory change.? No obstructing stone or mass detected.? 1.6 cm cystic pancreatic body lesion,
[2023-08-18 15:29] LABS: T3 Free 3.0 pg/mL
== END 2023-07-29 16:45 | disposition home or self-care (01) | DRG 287 ==
LOC: ANHED 07-28 00:20 → ANHIMU 07-28 01:15
PROVIDERS: Emergency Medicine; Internal Medicine; Admitting Provider Internal Medicine Infectious Disease; Emergency Provider Physician Assistant; PCP Family Medicine; Visit Provider Family Medicine
PROC: 4A023N7 Measurement of Cardiac Sampling and Pressure, Left Heart, Percutaneous Approach (ICD-10-PCS; CPT 93452; principal; 2023-07-29 08:30)
DX: R07.9 Chest pain, unspecified (principal); I25.110 Atherosclerotic heart disease of native coronary artery with unstable angina pectoris; K86.2 Cyst of pancreas; K86.1 Other chronic pancreatitis; F41.9 Anxiety disorder, unspecified; I10 Essential (primary) hypertension; E11.9 Type 2 diabetes mellitus without complications; E78.5 Hyperlipidemia, unspecified; G47.33 Obstructive sleep apnea (adult) (pediatric); R91.1 Solitary pulmonary nodule; F41.8 Other specified anxiety disorders; K83.8 Other specified diseases of biliary tract; K21.9 Gastro-esophageal reflux disease without esophagitis; Z20.822 Contact with and (suspected) exposure to COVID-19; F17.210 Nicotine dependence, cigarettes, uncomplicated; E55.9 Vitamin D deficiency, unspecified; Z86.16 Personal history of COVID-19; Z79.82 Long term (current) use of aspirin; Z90.49 Acquired absence of other specified parts of digestive tract; E66.9 Obesity, unspecified; Z68.32 Body mass index [BMI] 32.0-32.9, adult; Z86.010 Personal history of colon polyps; Z91.199 Patient's noncompliance with other medical treatment and regimen due to unspecified reason
CPT/HCPCS: 36415; 71046; 74177; 78452; 80048; 80053; 80061; 82948; 83036; 83690; 83735; 83880; 84100; 84439; 84443; 84480; 84484; 85025; 85055; 85380; 85610; 85730; 87086; 87088; 87637; 93005; 93017; 93306; 93458; 99285; A9270; A9502; C1769; C1887; C1894; C8929; G0378; J1644; J2250; J2270; J2305; J2405; J3010; J7030; J7040; Q9957; Q9967

== ENCOUNTER 2023-08-17 07:21 | Outpatient (CLI) | payer MEDICARE, OTHER, SELFPAY ==
--- NOTE | ~2023-08-17 | PE_ITS ---
EXAMINATION: PET skull to mid thigh DATE: 08/17/2023 11:46 INDICATION: Mass in pancreas and lung. TECHNIQUE: Blood glucose level was 137 mg/dL. 8.978 mCi of 18-fluorodeoxyglucose (18-FDG) was adminis tered i.v. Low dose computed tomography (CT) images were acquired from the base of the brain to the p roximal thighs for attenuation correction and anatomic localization. Automated exposure control was e mployed. Dose-length product (DLP) was 1011 mGy-cm. Positron emission tomography (PET) images were ac quired in the same distribution. COMPARISON: CT abdomen and pelvis 07/27/2023 FINDINGS: Head/neck: There are likely changes of ocular lens replacement surgeries. There is mucosal thickening in the paranasal sinuses. There are no pathologically enlarged lymph nodes. Chest: There is mild scarring at the lung apices. There is a 10 mm nodule in right lower lobe with ma ximum SUV of 1.6. No pleural effusion. There is left ventricular enlargement of the heart. There are coronary artery calcifications. No pericardial effusion. There are no pathologically enlarged lymph n odes. Abdomen/pelvis/proximal thighs: The liver is normal. There are changes of cholecystectomy. The spleen is normal. There are calcifications in the pancreas, consistent with chronic pancreatitis. There is a 1.6 cm cystic lesion with peripheral calcifications in the body of the pancreas. The adrenal glands and kidneys are normal. There are no dilated loops of bowel. There is diverticulosis of the colon wi thout evidence of diverticulitis. Tubal ligation clips are noted. There is calcified atherosclerosis of the aorta and many of the other arteries. There are no pathologically enlarged lymph nodes. There is no free intraperitoneal fluid. There is no osseous malignancy. IMPRESSION: 1. 10 mm right lower lobe pulmonary nodule without increased activity, probably benign. Noncontrast l ow-dose chest CT is recommended in 6 months. 2. 1.6 cm cystic lesion with peripheral calcifications in the body of the pancreas, most likely a pse udocyst given the findings of chronic pancreatitis. Reviewed, dictated and finalized at location A. IMPRESSION: 1. 10 mm right lower lobe pulmonary nodule without increased activity, probably benign. Noncontrast low-dose chest CT is recommended in 6 months. 2. 1.6 cm cystic lesion with peripheral calcifications in the body of the pancr eas, most likely a pseudocyst given the findings of chronic pancreatitis.
[2023-08-17 08:13] LABS: Glucose Point of Care 137 mg/dl (65-105)
== END 2023-08-17 07:22 | disposition home or self-care (01) ==
PROVIDERS: PCP Family Medicine; Visit Provider Physician Assistant
DX: R91.1 Solitary pulmonary nodule (principal); K86.2 Cyst of pancreas
CPT/HCPCS: 78815; A9552

== ENCOUNTER 2023-10-30 03:16 | Emergency (ER) | payer MEDICARE, OTHER, SELFPAY ==
--- NOTE | ~2023-10-30 | CT_ITS ---
EXAMINATION: CT orbit BI w con DATE: 10/30/2023 05:01 INDICATION: Right eye pain with ocular movement, swelling TECHNIQUE: Computed tomography angiography (CTA) of the chest was performed with 100 mL Omnipaque-350 intravenous contrast timed to evaluate the pulmonary arteries. Coronal maximum intensity projection 3D-reconstructions were created by the technologist. Automated exposure control and iterative reconst ruction technique were employed. Exam dose: 213.04 mGy-cm total exam DLP. Orbits COMPARISON: None. FINDINGS: Partial resection of the posterior right nasal plate; history of prior surgery. The orbital rims and morales are intact. The ocular globes appear symmetric. No intraconal or extraconal mass lesion is noted. No periorbital soft tissue swelling is noted. 1.2 cm mucous retention cyst or polyp in the lower right maxillary sinus. 1.8 cm mucous retention cys t or polyp in the lower left maxillary sinus. Small mucous retention cysts in the posterior right sphenoid sinus mucous-like soft tissue density in the left sphenoid sinus. The paranasal sinuses and mastoid air cells are otherwise unremarkable. IMPRESSION: Partial resection of the posterior right nasal plate No intraconal or extraconal orbital mass Mild paranasal sinus disease Reviewed, dictated and finalized at [facility]. Reviewed, dictated and finalized at [facility].
[2023-10-30 03:19] VITALS: BP 174/76; PULSE 84; RESP 15; TEMP 36.6; O2SAT 99
[2023-10-30] MEDS: cefTRIAXone 2 GM/NS 100 ML 2 GM/100 ML BAG IVPB (04:27)
[2023-10-30 04:33] LABS: Basophils Percent Auto 0.6 % (0.2-1.2); Eosinophils Absolute Auto 0.3 K/mm3 (0-0.3); Eosinophils Percent Auto 4.4 % (0-4.4); Hematocrit 39.3 % (37.0-47.0); Hemoglobin 13.1 g/dL (12.0-15.0); Immature Granulocyte Absolute 0.01 K/mm3 (0.00-0.031); Immature Granulocyte Percent A 0.2 % (0-0.5); Lymphocytes Absolute Auto 2.89 K/mm3 (0.9-3.2); Lymphocytes Percent Auto 46.8 % (18.3-44.2); Mean Corpuscular HGB Conc 33.3 g/dl (32-36); Mean Corpuscular Hemoglobin 29.8 pg (26-34); Mean Corpuscular Volume 89.3 fl (80-100); Mean Platelet Volume 10.1 fl (7.4-10.4); Monocytes Absolute Auto 0.5 K/mm3 (0.1-0.6); Monocytes Percent Auto 7.9 % (2.6-8.5); Neutrophils Absolute Auto 2.5 K/mm3 (1.3-6.7); Neutrophils Percent Auto 40.1 % (45.5-73.1); Platelet Count Result 142 k/mm3 (150-375); Red Cell Distribution Width 13.2 % (11.5-14.5); White Blood Count 6.2 K/mm3 (4.5-10.0)
[2023-10-30 04:45] LABS: Alanine Aminotransferase 20 U/L (6-35); Albumin Level 4.4 g/dL (3.5-5.1); Alkaline Phosphatase 92 U/L (38-126); Anion Gap 7 mmol/L (4-12); Aspartate Amino Transferase 25 U/L (14-36); Bilirubin,Total 0.7 mg/dL (0.2-1.3); Blood Urea Nitrogen 13 mg/dL (7-17); Calcium 8.9 mg/dL (8.4-10.2); Carbon Dioxide 27 mmol/L (22-30); Chloride 106 mmol/L (98-107); Estimated CRCL calculation 65 ml/min; Estimated Glomerular Filt Rate > 60; Glucose 154 mg/dL (65-110); Potassium 3.6 mmol/L (3.4-5.0); Sodium 140 mmol/L (137-145)
--- NOTE | 2023-10-30 05:35 | ED.GENADULT ---
HPI - General Adult General Chief complaint: Eye Problems Stated complaint: right eye Time Seen by Provider: 10/30/23 03:57 History of Present Illness HPI narrative: This is a 68-year-old female presenting with 2 days of right eye swelling. patient has pain irritation and purulent discharge. She has had this happen past. She has pain when she looks back and forth. She called her primary care physician who prescribed an ointment but she felt like her eye continue to get worse. no loss of vision. No fevers chills nausea vomiting diarrhea Related Data Home Medications Medication Instructions Recorded Confirmed alprazolam 0.5 mg tablet 0.5 mg PO BID 08/25/22 10/27/23 aspirin 81 mg tablet,delayed 81 mg PO DAILY 08/25/22 10/27/23 release (Adult Low Dose Aspirin) cholecalciferol (vitamin D3) 10 10 mcg PO DAILY 08/25/22 10/27/23 mcg (400 unit) capsule duloxetine 60 mg capsule,delayed 60 mg PO DAILY 08/25/22 10/27/23 release (Cymbalta) gabapentin 300 mg capsule 300 mg PO BID 08/25/22 10/27/23 multivitamin (Daily Multi-Vitamin 1 tablet PO DAILY 08/25/22 10/27/23 tablet) Allergies Allergy/AdvReac Type Severity Reaction Status Date / Time No Known Allergies Allergy Verified 10/27/23 14:50 [facility] Past Medical History Medical History BMI 32.0-32.9,adult BMI 34.0-34.9,adult Cholecystectomy planned Chronic pancreatitis Dilation of biliary tract Hx of adenomatous colonic polyps RAYMOND (obstructive sleep apnea) Surgical History Surgical History (Updated 10/27/23 @ 19:57 by Tashia Stein MD) H/O tubal ligation History of eye surgery Right tear duct Family History Family History Sibling Family history of Parkinson's disease Mother Family history of diabetes mellitus in first degree relative Family history of heart disease in male family member before age 55 Family history of thyroid disease Diabetes mellitus Family history of coronary artery disease Acute myocardial infarction Father Family history of heart disease in male family member before age 55 Heart disease Diabetes mellitus Sibling , Covid-19 Obese Social History Social History Smoking packs per day: 1 Smoking cigarettes per day: 20.0 Years smoked: 50 Smoking pack-years: 50.00 Smoking status: Current every day smoker Tobacco type: cigarettes Second hand tobacco smoke exposure: No Alcohol intake: never Substance use: never Substance use type: does not use Do You Feel Safe in your Home?: Yes Lack of Transportation: No Lack of Food: Never True Current Housing: I Have Housing Concerned About Future Housing: No Difficulty Paying Gas/Electric Bills: No Difficulty Paying for Meds: No Currently Unemployed: No Education: High School Diploma/GED Difficulty w/ Childcare or Family Care: No Living arrangements: with family Additional living arrangements comments: with daughter Occupation/Education: retired 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 Head: atraumatic. EYES: conjunctival injection and purulent discharge in the right eye, surrounding erythema/ edema to the periorbital tissue NOSE: Atraumatic NECK: Trachea midline RESPIRATORY: No increased rate of breathing CARDIOVASCULAR: RRR, ABDOMINAL: Non-distended MUSCULOSKELETAl: No obvious deformities NEURO: Alert. Moving 4/4 extremities SKIN:: Warm, dry. Normal color PSYCHIATRIC: Normal affect visual acuity per nursing note - at baseline right eye - IOP 12, no Fluorescein uptake/ ulceration or Lisa sign. Course Vital Signs Vital signs: Vital Signs Temperatur
[2023-10-30 06:56] VITALS: BP 166/80; PULSE 69; RESP 17; O2SAT 100
== END 2023-10-30 06:57 | disposition home or self-care (01) ==
PROVIDERS: Emergency Provider Emergency Medicine; PCP Family Medicine
DX: L03.213 Periorbital cellulitis (principal); H10.9 Unspecified conjunctivitis; K86.1 Other chronic pancreatitis; G47.33 Obstructive sleep apnea (adult) (pediatric); Z86.010 Personal history of colon polyps; Z79.82 Long term (current) use of aspirin; Z79.899 Other long term (current) drug therapy; F17.210 Nicotine dependence, cigarettes, uncomplicated
CPT/HCPCS: 36415; 70481; 80053; 85025; 96365; 99284; J0696; Q9967

== ENCOUNTER 2023-11-08 10:28 | Outpatient (CLI) | payer MEDICARE, OTHER, SELFPAY ==
--- NOTE | 2023-11-08 13:07 | WPDSIXMINUTE ---
Six Minute Walk Procedure Procedure Performed Pulmonary Stress Test (6 min walk) Six Minute Walk Six Minute Walk: This is a 6 minute walk test. The test was performed and interpreted in accordance with the 2014 ERS/ATS task force guidelines. Findings: The patient's resting room air oxygen saturation measured by pulse oximetry was 95% and heart rate was 71 bpm. Patient ambulated for 244 meters and oxygen saturation remained 92 to 96%. Heart rate at the end of the study was 90 bpm. The patient did not qualify for supplemental oxygen at rest or with ambulation. There are no prior studies for comparison.
--- NOTE | 2023-11-08 13:08 | WPDPFTINT ---
PFT Procedure Performed PFT Procedure Performed Spirometry with Pre/Post Bronchodilator Plethysmography (Lung Vol) Diffusing Cap (DLCO) Flow Vol Loop PFT Interpretation This is a pulmonary function test with pre and post-bronchodilator spirometry, plethysmography and diffusing capacity. The test was performed and results interpreted in accordance with the 2019 and 2005 ATS/ERS Task Force guidelines respectively using the Global Lung Function Initiative-2012 reference equations. Patient demonstrated good effort and cooperation. Reproducibility criteria were met. The quality of the pre bronchodilator spirometry maneuver was Grade A and post bronchodilator spirometry maneuver was Grade A. Findings: Spirometry: The contour the inspiratory and expiratory flow tracing is normal. The pre bronchodilator FVC is 2.88 L, 101% predicted. The FEV1 is 1.95 L, 88% predicted. The pre bronchodilator FEV1: FVC ratio 68%. The post bronchodilator FVC is 2.88 L, representing no change. The post bronchodilator FEV1 is 1.99 L, representing a 2% increase. The post bronchodilator FEV1: FVC ratio 69%. Plethysmography: The total lung capacity is 4.92 L, 100% predicted. The functional residual capacity is 2.86 L, 103% predicted. The residual volume is 2.04 L, 98% predicted. Diffusing capacity: The diffusing capacity unadjusted for hemoglobin and carboxyhemoglobin is 14.8, 72% predicted. The diffusing capacity adjusted for alveolar volume is 3.67, 84% predicted. Impression: The spirometry is normal without evidence of an obstructive abnormality. There is no significant improvement after inhaling a single dose of albuterol. The lung volumes are normal. The diffusing capacity is normal. There are no prior studies for comparison
== END 2023-11-08 10:29 | disposition home or self-care (01) ==
LOC: ANHPFT 10:29
PROVIDERS: PCP Family Medicine; Visit Provider Internal Medicine Critical Care Medicine
DX: Z87.891 Personal history of nicotine dependence (principal)
CPT/HCPCS: 94060; 94726; 94729

== ENCOUNTER 2023-11-11 08:52 | Outpatient (CLI) | payer MEDICARE, OTHER, SELFPAY ==
--- NOTE | 2023-12-01 23:09 | WPDSLEEPSTUD ---
Sleep Study Date of Study: 11/11/23 Ordering Provider: Tashia Stein MD Interpreting Physician: Tashia Stein MD Sleep Study Type: CPAP Titration Height: 1.6 m Weight: 83.915 kg Body Mass Index: 32.8 Neck Circumference (inches): 17 [place]: 1 Reason for Sleep Study RAYMOND, has used CPAP in the past, machine was recalled * 07/10/2013- split night sleep study; Severe obstructive sleep apnea, AHI 72.5, loud continuous snoring, severe oxygen desaturations, adequate titration of CPAP to 7 cm. * 02/08/2018- CPAP re-titration; optimal pressure 8 cm. Sleep History Jolly Yin is a 68-year-old woman with nonrestorative sleep. She never awakens from sleep short of breath. She never wakes at night with heartburn, belching or coughing.??She always snores loudly enough that others complain about it. She has had witnessed apneas. She occasionally has trouble sleeping when she has a cold. She never wakes up gasping for breath during the night. She never has breathing problems at night. She never sweats excessively at night. She occasionally notices her heart pounding or beating irregularly during the night. She never falls asleep during the day. She never falls asleep involuntarily, never falls asleep while driving. She never experiences loss of muscle tone with strong emotion. She never feels paralyzed on waking or falling asleep. She never experiences vivid dreams upon waking or falling asleep. She never feels afraid of going to sleep. She never has nightmares. She never recalls her dreams. She never has thoughts racing through her mind. She occasionally feels sad or depressed. She frequently feels anxiety. She frequently notices parts of her body jerk. She never kicks during the night. She frequently feels crawling or aching feelings in her legs. She frequently feels leg pain at night. She occasionally has morning jaw pain, and never grinds her teeth at night. She never feels bothered by pain during the day, is occasional awakened by pain during the night. She frequently wakes up feeling stiff in the morning, always wakes feeling sore or achy in the morning. She frequently awakens with pain in her neck, spine, or joints. Normal bedtime is midnight, falling asleep within 30 minutes, usually not waking during the night. If she does wake at night, she is able to return to sleep within 20 minutes. She wakes at 9:00 a.m., reports getting 8 hours of sleep per night. She does not take naps in the day. Habits:??Tobacco: 1 pack per day Caffeine: 2 cups daily Alcohol: none Recreational substances: none PMFSH Past Medical History Medical History BMI 32.0-32.9,adult BMI 34.0-34.9,adult Cholecystectomy planned Chronic pancreatitis Dilation of biliary tract Hx of adenomatous colonic polyps RAYMOND (obstructive sleep apnea) Surgical History Surgical History H/O tubal ligation History of eye surgery Right tear duct Family History Family History Sibling Family history of Parkinson's disease Mother Family history of diabetes mellitus in first degree relative Family history of heart disease in male family member before age 55 Family history of thyroid disease Diabetes mellitus Family history of coronary artery disease Acute myocardial infarction Father Family history of heart disease in male family member before age 55 Heart disease Diabetes mellitus Sibling , Covid-19 Obese Social History Social History Smoking packs per day: 1 Smoking cigarettes per day: 20.0 Years smoked: 50 Smoking pack-years: 50.00 Smoking status: Current every day smoker Tobacco type: cigarettes Second hand tobacco smo
[2023-12-01 23:22] VITALS: BMI 32.8
== END 2023-11-12 07:22 | disposition home or self-care (01) ==
PROVIDERS: PCP Family Medicine; Visit Provider Internal Medicine Critical Care Medicine
DX: G47.33 Obstructive sleep apnea (adult) (pediatric) (principal); G25.81 Restless legs syndrome; I10 Essential (primary) hypertension; Z68.32 Body mass index [BMI] 32.0-32.9, adult
CPT/HCPCS: 95811

== ENCOUNTER 2024-01-06 12:30 | Outpatient (RCR) | payer MEDICARE, OTHER, SELFPAY ==
[2023-10-15 11:29] VITALS: BP 124/74; PULSE 62; RESP 16; O2SAT 97
[2023-10-15 11:55] VITALS: PULSE 60
== END 2024-01-27 13:04 | disposition home or self-care (01) ==
LOC: ANHCPREHAB 12:30
PROVIDERS: PCP Family Medicine; Visit Provider Internal Medicine
DX: I21.4 Non-ST elevation (NSTEMI) myocardial infarction (principal)
CPT/HCPCS: 93798

== ENCOUNTER 2024-02-28 14:05 | Outpatient (CLI) | payer MEDICARE, OTHER, SELFPAY ==
--- NOTE | ~2024-02-28 | CT_ITS ---
EXAMINATION:CT diagnostic chest wo con DATE: 02/28/2024 14:30 INDICATION: Right lung lower lobe nodule. TECHNIQUE: Computed tomography (CT) of the chest was performed without intravenous contrast. Automate d exposure control and iterative reconstruction technique were employed. The dose-length product (DLP ) was 160.05 mGy-cm. COMPARISON: Chest CT 06/23/2019, PET/CT 08/17/2023 FINDINGS: There is mild scarring at the lung apices. There is a 10 mm nodule in right lung lower lobe . Calcified right lung nodules calcified bilateral lung nodules are consistent with old granulomatous disease. No pleural effusion. The heart size is normal. There are coronary artery calcifications. No pericardial effusion. There are changes of cholecystectomy. There is mild thoracic spondylosis. IMPRESSION: 1. 10 mm nodule in right lung lower lobe, stable from 08/17/23, likely benign. Noncontrast low-dose jessika st CT is recommended in 12 months. Reviewed, dictated and finalized at [facility]. IMPRESSION: 1. 10 mm nodule in right lung lower lobe, stable from 08/17/23, likely benign. No ncontrast low-dose chest CT is recommended in 12 months.
== END 2024-02-28 14:06 | disposition home or self-care (01) ==
PROVIDERS: PCP Family Medicine; Visit Provider Internal Medicine Critical Care Medicine
DX: R91.1 Solitary pulmonary nodule (principal)
CPT/HCPCS: 71250

== ENCOUNTER 2024-04-23 17:56 | Emergency (ER) | payer MEDICARE, OTHER, SELFPAY ==
[2024-04-23] VITALS (9 sets, daily range): BP systolic 97–140; BP diastolic 54–87; PULSE 58–75; RESP 13–22; TEMP 36.6–36.7; O2SAT 97–98
--- NOTE | ~2024-04-23 | CT_ITS ---
CT ANGIOGRAM NECK AND HEAD History: Vertebral artery calcification, dizziness. Technique: Serial spiral axial images through the head and neck were obtained during arterial phase I V injection of 100 cc of Omnipaque 350. 3-D postprocessing and MIP images were then reconstructed on the remote workstation. Dose reduction technique was used on this scan by utilizing automated exposur e control and iterative reconstruction technique. The dose-length product (DLP) was 1128.27 mGy-cm. CTA neck findings: Bilateral vertebral arteries are patent. There are focal calcifications at the di stal vertebral arteries bilaterally, resulting in focal areas of moderate to high-grade stenosis. David ateral common carotid, internal carotid, and external carotid arteries are patent. There are atherosc lerotic calcifications at the carotid bifurcation region bilaterally. No significant stenosis seen in the right side. There is a focal 10% stenosis at the proximal left internal carotid artery.. The pro ximal right internal carotid artery demonstrates 0% stenosis relative to the normal distal artery lum en diameter. The proximal left internal carotid artery demonstrates 10% stenosis relative to the norm al distal artery lumen diameter. CTA head findings: Basilar artery and posterior cerebral arteries are patent. Distal internal carotid arteries, middle cerebral arteries, anterior cerebral arteries are patent. There are areas of mild s tenosis in the cavernous portions of the distal internal carotid arteries related to atherosclerotic calcifications. No high-grade stenosis identified. No large vessel occlusion. No aneurysm. Impression: Focal areas of moderate to high-grade stenosis of the bilateral distal vertebral arteries related to areas of atherosclerotic calcification. 10% stenosis of the proximal left internal carotid artery. Reviewed, dictated and finalized at location . RMAN Impression: Focal areas of moderate to high-grade stenosis of the bilateral distal vertebra l arteries related to areas of atherosclerotic calcification. 10% stenosis of the proximal left internal carotid artery.
--- NOTE | ~2024-04-23 | CT_ITS ---
EXAMINATION: CT brain wo con DATE: 04/23/2024 19:33 INDICATION: Dizziness TECHNIQUE: Computed tomography (CT) of the head was performed without intravenous contrast. The mA wa s adjusted according to patient size. Iterative reconstruction technique was employed. Exam dose: 68 1.00 mGy-cm total exam DLP. COMPARISON: None FINDINGS: Very prominent bilateral arterial calcification of the vertebral arteries. No intracranial mass lesion or hemorrhage or cerebrovascular accident is evident. There is nonspecifi c patchy diminished attenuation the cerebral white matter which may be due to chronic small vessel is chemic change. Ventricular size is within normal range. No midline shift or mass effect. No subdural or epidural hematoma. Bilateral hyperostosis frontalis interna, not likely of any clinical significance. No fracture or bone destruction of the cranial There is posterior mucoperiosteal thickening of the sp henoid sinuses, left greater than right. Approximately 1.3 x 1.7 cm mucous retention cyst or polyp is noted in the lower left maxillary sinus. The mastoid air cells are unremarkable. IMPRESSION: Very prominent bilateral vertebral artery calcification Nonspecific diminished attenuation the cerebral white matter, which may be due to chronic small vesse l ischemic change finding Reviewed, dictated and finalized at [facility]. Reviewed, dictated and finalized at location [facility]. 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
--- NOTE | ~2024-04-23 | XR_ITS ---
XR chest 2V DATE: 04/23/2024 18:45 INDICATION: Dizziness TECHNIQUE: AP and lateral chest COMPARISON: 02/28/2024 CT chest FINDINGS: Again noted is a right lower lobe pulmonary nodule; CT chest follow-up in February 2025 has been recommended. No pulmonary infiltrate or consolidation, pleural effusion or pulmonary vascular congestion or pneumo thorax is detected. Heart size appears within normal range. There is thoracic aortic calcification. No hilar or mediastinal enlargement. Degenerative spurring of the thoracic spine. IMPRESSION: 1 cm right lower lobe pulmonary nodule; follow-up CT thorax examination in February 2025 h as been recommended Otherwise no active cardiopulmonary disease Aortic atherosclerosis Degenerative spurring of the thoracic spine Reviewed, dictated and finalized at location [facility]. 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
--- NOTE | 2024-04-23 18:03 | ECG_ITS ---
Test Date: 2024-04-23 18:11:34 Measurements Intervals [place] Rate: 62 P: 46 [place]: 196 QRS: -8 QRSD: 111 T: 230 QT: 431 QTc: 441 Interpretive Statements SINUS RHYTHM LOW QRS VOLTAGE IN PRECORDIAL LEADS [QRS DEFLECTION < 1.0 mV IN CHEST LEADS] POSSIBLE RIGHT VENTRICULAR CONDUCTION DELAY [RSR (QR) IN V1/V2] ST DEVIATION AND MODERATE T-WAVE ABNORMALITY, CONSIDER LATERAL ISCHEMIA [-0.1+ mV T WAVE IN I/aVL/V5/V6] No previous ECG available for comparison Electronically Signed On 04-24-2024 12:44:52 [employer] by Camilo Padgett M.D.
[2024-04-23 18:24] LABS: Basophils Percent Auto 0.5 % (0.2-1.2); Eosinophils Absolute Auto 0.2 K/mm3 (0-0.3); Eosinophils Percent Auto 3.6 % (0-4.4); Hematocrit 43.7 % (37.0-47.0); Hemoglobin 14.2 g/dL (12.0-15.0); Immature Granulocyte Absolute 0.02 K/mm3 (0.00-0.031); Immature Granulocyte Percent A 0.3 % (0-0.5); Immature Platelet Fraction Pct 2.9 % (0.9-11.2); Lymphocytes Absolute Auto 2.13 K/mm3 (0.9-3.2); Lymphocytes Percent Auto 35.2 % (18.3-44.2); Mean Corpuscular HGB Conc 32.5 g/dl (32-36); Mean Corpuscular Hemoglobin 30.2 pg (26-34); Mean Platelet Volume 10.3 fl (7.4-10.4); Monocytes Absolute Auto 0.4 K/mm3 (0.1-0.6); Monocytes Percent Auto 6.9 % (2.6-8.5); Neutrophils Absolute Auto 3.2 K/mm3 (1.3-6.7); Neutrophils Percent Auto 53.5 % (45.5-73.1); Platelet Count Result 132 k/mm3 (150-375); Red Cell Distribution Width 13.3 % (11.5-14.5); White Blood Count 6.1 K/mm3 (4.5-10.0)
[2024-04-23 18:33] LABS: Alanine Aminotransferase 23 U/L (6-35); Albumin Level 4.5 g/dL (3.5-5.1); Alkaline Phosphatase 77 U/L (38-126); Anion Gap 8 mmol/L (4-12); Aspartate Amino Transferase 26 U/L (14-36); Bilirubin,Total 0.7 mg/dL (0.2-1.3); Blood Urea Nitrogen 12 mg/dL (7-17); Calcium 9.1 mg/dL (8.4-10.2); Carbon Dioxide 24 mmol/L (22-30); Chloride 107 mmol/L (98-107); Estimated CRCL calculation 62 ml/min; Estimated Glomerular Filt Rate > 60; Glucose 176 mg/dL (65-110); Potassium 3.9 mmol/L (3.4-5.0); Sodium 139 mmol/L (137-145)
--- NOTE | 2024-04-23 19:54 | ED_ITS ---
HPI - Dizziness General Chief Complaint: Dizziness Stated Complaint: dizzy - positional Time Seen by Provider: 04/23/24 18:36 Source: patient Mode of arrival: EMS Limitations: no limitations History of Present Illness HPI Narrative: Patient is a 68-year-old female who presents the ED via EMS with report of dizziness. Patient reports she began feeling dizzy this afternoon around 4:00 p.m. after eating dinner and getting up to use the restroom. States dizziness is worse with movements, looking to left, sitting upright. Described as feeling lightheaded, room spinning, and as a motion sickness. Has had similar symptoms in the past, but states she was never given a diagnosis. Patient reports she is feeling anxious. Denies CP, SOB, nausea, vomiting, focal weakness or numbness, vision changes, headache. Denies slurred speech or confusion. Related Data Home Medications Medication Instructions Recorded Confirmed alprazolam 0.5 mg tablet 0.5 mg PO BID 08/25/22 01/24/24 aspirin 81 mg tablet,delayed 81 mg PO DAILY 08/25/22 01/24/24 release (Adult Low Dose Aspirin) cholecalciferol (vitamin D3) 10 10 mcg PO DAILY 08/25/22 01/24/24 mcg (400 unit) capsule duloxetine 60 mg capsule,delayed 60 mg PO DAILY 08/25/22 01/24/24 release (Cymbalta) gabapentin 300 mg capsule 300 mg PO BID 08/25/22 01/24/24 multivitamin (Daily Multi-Vitamin 1 tablet PO DAILY 08/25/22 01/24/24 tablet) sacubitril 49 mg-valsartan 51 mg 1 tablet PO BID 01/05/24 01/24/24 tablet (Entresto) Allergies Allergy/AdvReac Type Severity Reaction Status Date / Time No Known Allergies Allergy Verified 04/23/24 18:07 Review of Systems Review of Systems: All systems reviewed & are unremarkable except as noted in HPI. All systems reviewed & are unremarkable except as noted in HPI and below PMFSH Past Medical History Medical History CAD (coronary atherosclerotic disease) Cholecystectomy planned Chronic pancreatitis Dilation of biliary tract Heart failure Hx of adenomatous colonic polyps Low TSH level RAYMOND (obstructive sleep apnea) Surgical History Surgical History H/O tubal ligation History of eye surgery Right tear duct Family History Family History Sibling Family history of Parkinson's disease Mother Family history of diabetes mellitus in first degree relative Family history of heart disease in male family member before age 55 Family history of thyroid disease Diabetes mellitus Family history of coronary artery disease Acute myocardial infarction Father Family history of heart disease in male family member before age 55 Heart disease Diabetes mellitus Sibling , Covid-19 Obese Social History Social History Smoking packs per day: 1 Smoking cigarettes per day: 20.0 Years smoked: 50 Smoking pack-years: 50.00 Smoking status: Current every day smoker Tobacco type: cigarettes Second hand tobacco smoke exposure: No Alcohol intake: never Substance use: never Substance use type: does not use Do You Feel Safe in your Home?: Yes Lack of Transportation: No Lack of Food: Never True Current Housing: I Have Housing Concerned About Future Housing: No Difficulty Paying Gas/Electric Bills: No Difficulty Paying for Meds: No Currently Unemployed: No Education: High School Diploma/GED Difficulty w/ Childcare or Family Care: No Living arrangements: with family Additional living arrangements comments: with daughter Occupation/Education: retired 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 HEAD: Normocephalic, atraumatic. EYES: PERRL/EOMI, conjunctivae clear bilaterally. No appreciable nystagmus. ENT: L cerumen impaction. Right TM clear. Small amount of cerumen present in ear canal, but able to visualize TM still. NECK: Supple. No meningeal signs. RESPIRATORY: Airway patent, respirations nonlabored. Clear to auscultation b ilaterally, no rales, rhonchi, wheezing. CARDIOVASCULAR: Regular rate and rhythm without murmurs, rubs, or gallops. Peripheral pulses 2+ and equal bilaterally. MUSCULOSKELETAL: Moves all extremities. No gross deformities. No peripheral edema. SKIN: Warm, dry, normal color. No rashes. NEURO: A&O X3. Speech clear. Follows commands. CN II-XII intact. Sensation grossly intact. Steady gait. No ataxic movements. Strength 5/5 in upper and lower extremities bilaterally. No pronator drift. 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 PSYCHIATRIC: Appropriate mood and affect. Normal interaction. Course Vital Signs Vital signs: Vital Signs Temperature 97.8 F 04/23/24 18:03 Pulse Rate 75 04/23/24 18:03 Respiratory Rate 13 04/23/24 18:03 Blood Pressure 140/68 04/23/24 18:03 Pulse Oximetry 97 04/23/24 18:03 Oxygen Delivery Room Air 04/23/24 18:03 Temperature 98.0 F 04/23/24 18:30 Pulse Rate 68 04/24/24 01:34 Respiratory Rate 21 H 04/24/24 00:01 Blood Pressure 126/73 04/24/24 01:34 Pulse Oximetry 99 04/24/24 00:01 Oxygen Delivery Room Air 04/23/24 18:03 MDM - Dizziness MDM Narrative Medical decision making narrative: Patient presented to ED with dizziness that began this afternoon, worse with position changes. States she has had similar dizziness in the past. Vital signs are stable upon arrival. Patient is neurologically intact upon my examination. No focal deficits appreciated on exam. She is denying any neurologic complaints. Orthostatic vital signs were evaluated and patient did have a large drop in her blood pressure with sitting to standing, at least 20 points. Fluids initiated. Will also attempt meclizine. Will irrigate left ear as cerumen impaction found on exam. Likely also contributing to dizziness. Laboratory studies without leukocytosis or anemia. Stable electrolytes. Stable kidney function. EKG with nonspecific ST changes, some T-wave inversions in lateral leads. No significant ST depression or elevation. Baseline troponin is undetectable. 3 hour troponin negative. Very low suspicion for ACS. D-dimer within normal range. BNP is within normal range. Chest x-ray showing pulmonary nodule, no other significant findings. CT brain showing: Very prominent bilateral vertebral artery calcification. No other acute intracranial pathology. Patient was given fluids and meclizine in the ED. She is feeling much better on re-evaluation. She feels ready to go home. Denies further dizziness. Suspect very much that dizziness was related to cerumen impaction, orthostatic hypotension, vertigo picture. I did discuss CT findings with patient and advised cannot fully r/o vertebral artery insufficiency causing sx's. Discussed obtaining CTA brain/carotids vs f/u with PCP for outpatient w/u. Utilized shared decision making with patient/family. Patient would like to proceed with CTA. CTA brain/carotids obtained and only showing mild vertebral artery stenosis. No severe stenosis, LVO, aneurysm. Updated patient and family on plan. She continues to remain asymptomatic at this time. Feel she is safe for discharge home with further outpatient vascular/neurosurgery follow-up. Advised patient to have very close follow-up with PCP for further evaluation. Will also refer to our neurosurg team here. She was given strict return precautions, including signs and symptoms of CVA. Patient very much feels comfortable going home. Family will be staying with her. Again discussed strict return precautions and patient and family voiced understanding. Discharged in stable condition. Vital signs stable at time of D/C. Medical Records Attestation: I reviewed the patient's medical records. Lab Data Attestation: I reviewed the patient's lab results. 04/23/24 18:16 04/23/24 18:16 Labs: Lab Results 04/23/24 04/23/24 04/23/24 Range/Units 18:16 22:23 22:46 WBC 6.1 (4.5-10.0) K/mm3 RBC 4.70 (4.2-5.4) M/mm3 Hgb 14.2 (12.0-15.0) g/dL Hct 43.7 (37.0-47.0) % MCV 93.0 (80-100) fl MCH 30.2 (26-34) pg MCHC 32.5 (32-36) g/dl RDW 13.3 (11.5-14.5) % Plt Count 132 L (150-375) k/mm3 MPV 10.3 (7.4-10.4) fl Immature Gran % (Auto) 0.3 (0-0.5) % Neut % (Auto) 53.5 (45.5-73.1) % Lymph % (Auto) 35.2 (18.3-44.2) % [place] % (Auto) 6.9 (2.6-8.5) % Eos % (Auto) 3.6 (0-4.4) % Baso % (Auto) 0.5 (0.2-1.2) % Lymph # (Auto) 2.13 (0.9-3.2) K/mm3 [place] # (Auto) 0.4 (0.1-0.6) K/mm3 Eos # (Auto) 0.2 (0-0.3) K/mm3 Baso # (Auto) 0.0 (0.0-0.1) K/mm3 Abs Immat Gran (auto) 0.02 (0.00-0.031) K/mm3 Absolute Neuts (auto) 3.2 (1.3-6.7) K/mm3 Absolute Nucleated RBC 0.000 (0.0-0.012) K/mm3 Nucleated RBC % 0.0 (0.0-0.2) % % Immature Plt Fraction 2.9 (0.9-11.2) % PT 13.5 (11.1-14.7) Seconds INR 1.0 APTT 29.0 (22.3-36.8) Seconds D-Dimer 0.36 (<0.48) ug/mL Sodium 139 (137-145) mmol/L Potassium 3.9 (3.4-5.0) mmol/L Chloride 107 (98-107) mmol/L Carbon Dioxide 24 (22-30) mmol/L Anion Gap 8 (4-12) mmol/L BUN 12 (7-17) mg/dL Creatinine 0.80 (0.7-1.0) mg/dL Estim Creat Clear Calc 62 ml/min Estimated GFR > 60 (59 - ) Glucose 176 H (65-110) mg/dL Calcium 9.1 (8.4-10.2) mg/dL Magnesium 2.1 (1.6-2.3) mg/dL Total Bilirubin 0.7 (0.2-1.3) mg/dL AST 26 (14-36) U/L ALT 23 (6-35) U/L Alkaline Phosphatase 77 (38-126) U/L Troponin I < 0.012 < 0.012 (0.000-0.034) ng/mL NT-Pro-B Natriuret Pep 317 H (19.9-100) pg/mL Total Protein 7.0 (6.3-8.2) g/dL Albumin 4.5 (3.5-5.1) g/dL Urine Color Yellow (Yellow) Urine Appearance Clear (Clear) Urine pH 5.5 (5.0-9.0) Ur Specific [place] 1.033 (1.001-1.035) Urine Protein Negative (Negative) mg/dL Urine Glucose (UA) 3+ H (Negative) mg/dL Urine Ketones Negative (Negative) mg/dL Ur Blood (Man) Trace (Negative) Urine Nitrate Negative (Negative) Urine Bilirubin Negative (Negative) Urine Urobilinogen 0.2 (<2.0) mg/dL Leukocyte Esterase Rfl Negative (Negative) SUJATHA/UL Urine RBC 3-5 H (0-2) /hpf Urine WBC 0-5 (0-3) /hpf Ur Squamous Epith Cells None seen (Few) /hpf Urine Bacteria None seen /hpf Urine Casts 0-2 Imaging Data Attestation: I personally reviewed and interpreted this imaging study as follows: Radiologist's impression: STAT RAD CTA brain: No acute occlusion, severe stenosis, or aneurysm. NECK: Mild bilateral intradural vertebral artery stenosis atherosclerosis. ECG Data EKG #1: Attestation: I personally reviewed and interpreted this ECG as follows: ECG completion date: 04/23/24 ECG completion time: 18:11 EKG Interpretation: normal rate (62), sinus rhythm and non-specific ST changes Discharge Plan Discharge Clinical Impression: Dizziness, Orthostatic hypotension, Left ear impacted cerumen Patient Disposition: Home, Self-Care Condition: Stable Instructions: Antibiotic Form, Vertigo (ED), Benign Paroxysmal Positional Vertigo (ED) Additional Instructions: Recommend staying very well hydrated at home. Increase fluid intake. Avoid abrupt position changes as this could cause a drop in your blood pressure. You may utilize meclizine as needed for further dizziness. You may use [id number] Debrox ear drops as needed for wax buildup. Recommend close follow-up with your primary care doctor for further evaluation and to discuss ED visit. Return to the ED immediately if you experience worsening or severe dizziness, passing out, vision changes, headache, numbness or weakness of arm or leg, slurred speech, confusion, or any other symptoms that are concerning to you. Your CT scan did show mild bilateral vertebral artery stenosis. You will need to follow-up with your primary care doctor for further evaluation and management of this. I have also provided neurosurgery information for follow-up. Call office to make appointment. Prescriptions: New meclizine 25 mg tablet 25 mg PO TID PRN (Reason: dizziness) Qty: 15 0RF No Action duloxetine [Cymbalta] 60 mg capsule,delayed release(DR/EC) 60 mg PO DAILY gabapentin 300 mg capsule 300 mg PO BID alprazolam 0.5 mg tablet 0.5 mg PO BID aspirin [Adult Low Dose Aspirin] 81 mg tablet,delayed release (DR/EC) 81 mg PO DAILY cholecalciferol (vitamin D3) 10 mcg (400 unit) capsule 10 mcg PO DAILY multivitamin [Daily Multi-Vitamin] Tablet 1 tablet PO DAILY Anoro Ellipta 62.5-25 mcg/actuation blister with device 1 inh inhalation DAILY 90 Days Qty: 180 2RF Jardiance 25 mg tablet 25 mg PO DAILY Qty: 90 3RF Entresto 49-51 mg tablet 1 tablet PO BID rosuvastatin 40 mg tablet See Rx Instructions .ROUTE .COMPLEX Qty: 90 3RF Dose Instruction: TAKE 1 TABLET DAILY Rx Instructions: TAKE 1 TABLET DAILY metoprolol succinate 25 mg tablet extended release 24 hr 25 mg PO DAILY Qty: 90 1RF Follow-up/Referrals: Naga Machado MD [Physician] - (NEUROSURGERY) Martin Lagunas MD [Primary Care Provider] - Time of Disposition: 01:39
[2024-04-23] MEDS: SODIUM CHLORIDE 0.9% IV 1,000 ML 999 ML IV CONT ×2 (20:13→20:48)
[2024-04-23] MEDS: MECLIZINE HCL 25 MG TABLET PO (20:13)
[2024-04-23 20:16] LABS: Magnesium 2.1 mg/dL (1.6-2.3)
[2024-04-23 20:28] LABS: NT Pro B Type Natriuretic Pept 317 pg/mL (19.9-100); Troponin I < 0.012 ng/mL (0.000-0.034)
--- NOTE | 2024-04-23 22:27 | PC.NURSE ---
left ear irrigated per elenita bateman request.
[2024-04-23] MEDS: CARBAMIDE PEROXIDE 6.5% OT SOLN 15 ML BTL 5 DROP LEFT EAR (22:50)
[2024-04-23 22:58] LABS: Add Urine Microscopic? YES; Appearance Urine Clear (Clear); Bacteria Urine None Seen /hpf; Bilirubin Urine Negative (Negative); Blood Urine Trace (Negative); Color Urine Yellow (Yellow); Glucose Urine UA 3+ mg/dL (Negative); Ketones Urine Negative (Negative); Leukocyte Esterase Ur Negative LEU/UL (Negative); Nitrate Urine Negative (Negative); Non Pathogenic Casts 0-2; Protein Urine Negative (Negative); Specific Grav Ur 1.033 (1.001-1.035); Squamous Epithelial Cell Urine None Seen /hpf (Few); Urobilinogen Urine 0.2 mg/dL (<2.0); WBC Urine 0-5 /hpf (0-3); pH Urine 5.5 (5.0-9.0)
[2024-04-23 23:00] LABS: Troponin I < 0.012 ng/mL (0.000-0.034)
[2024-04-23 23:04] LABS: D Dimer 0.36 ug/mL (<0.48); Prothrombin Time 13.5 Seconds (11.1-14.7)
[2024-04-24 00:01] VITALS: BP 116/53; PULSE 62; RESP 21; O2SAT 99
[2024-04-24 01:32] VITALS: BP 131/52; PULSE 60
[2024-04-24 01:33] VITALS: BP 128/67; PULSE 70
[2024-04-24 01:34] VITALS: BP 126/73; PULSE 68
== END 2024-04-24 02:14 | disposition home or self-care (01) ==
PROVIDERS: Emergency Medicine; Emergency Provider Physician Assistant; PCP Family Medicine
DX: R42 Dizziness and giddiness (principal); I95.1 Orthostatic hypotension; H61.22 Impacted cerumen, left ear; F17.210 Nicotine dependence, cigarettes, uncomplicated; I25.10 Atherosclerotic heart disease of native coronary artery without angina pectoris; G47.30 Sleep apnea, unspecified; R94.31 Abnormal electrocardiogram [ECG] [EKG]; I50.9 Heart failure, unspecified
CPT/HCPCS: 36415; 70450; 70496; 70498; 71046; 80053; 81001; 83735; 83880; 84484; 85025; 85055; 85380; 85610; 85730; 93005; 96360; 96361; 99284; A9270; J7030; Q9967

== ENCOUNTER 2025-01-30 04:43 | Inpatient (IN) | payer MEDICARE, OTHER, SELFPAY ==
[2025-01-30] VITALS (17 sets, daily range): BP systolic 97–149; BP diastolic 53–77; PULSE 58–71; RESP 16–22; TEMP 36.4–36.8; O2SAT 92–99; BMI 35.3
--- NOTE | 2025-01-30 | ECHO_ITS ---
Patient Info Name: Jolly Yin Age: 69 years : 1955 Gender: Female Ht: 62 in Wt: 193 lbs BSA: 2.00 m2 HR: 65 bpm BP: 114 / 53 mmHg Heart Rhythm: Sinus Rhythm Technical Quality: Fair Exam Date: 01/30/2025 2:05 PM Patient Status: I Admit Date: 01/30/2025 Exam Type: CA echo dop color flow w con Complete two-dimensional, color flow and Doppler transthoracic echocardiogram is performed with contrast to opacify the left ventricle and to improve the deliniation of the left ventricle endocardial borders. Staff Referring Physician: José Miguel Alejandra Protozoologist: Woo Ferrer III Attending Provider: Alejandra Harris MD Contrast/Agitated Saline Contrast/Ag. Saline: Definity Amount: 2.00 ml Administered By: Woo Ferrer III Existing IV Access: Yes IV Access Condition: patent with no signs of infiltration Summary 1. Left ventricular chamber dimension is mildly enlarged. 2. There is no increased left ventricular wall thickness. 3. The left ventricular diastolic function is grade I diastolic dysfunction. 4. Left ventricular systolic function is moderately reduced, estimated at 35-40. 5. The apical septum, and apical inferior wall are akinetic. 6. The inferolateral wall, basal inferior wall, mid inferior wall, basal inferoseptal, and mid inferoseptal are hypokinetic. 7. The apical cap is dyskinetic. 8. There is mild mitral valve regurgitation. 9. There is mild tricuspid valve regurgitation. Left Ventricle Left ventricular chamber dimension is mildly enlarged. Left ventricular systolic function is moderately reduced, estimated at 35-40. There is no increased left ventricular wall thickness. The left ventricular diastolic function is grade I diastolic dysfunction. The apical septum, and apical inferior wall are akinetic. The inferolateral wall, basal inferior wall, mid inferior wall, basal inferoseptal, and mid inferoseptal are hypokinetic. The apical cap is dyskinetic. All other morales appear normal. Right Ventricle Right ventricular chamber dimension is normal. Right ventricular systolic function is normal. Left Atria Left atrial chamber dimension is normal. Right Atria Right atrial chamber dimension is normal. Atrial Septum Intact interatrial septum visualized by color flow imaging. Aortic Valve The aortic valve is trileaflet. There is mild aortic valve sclerosis. There is no aortic valve stenosis. There is trace aortic valve regurgitation. Pulmonic Valve The pulmonic valve is normal. There is no pulmonic valve stenosis. There is trace pulmonic regurgitation. Mitral Valve The mitral valve has normal leaflets. There is no mitral valve stenosis. There is mild mitral valve regurgitation. Tricuspid Valve The tricuspid valve leaflets are normal. There is no significant tricuspid valve stenosis. There is mild tricuspid valve regurgitation. Pericardium/Pleural The pericardium appears normal. There is no pericardial effusion. Inferior Vena Cava Normal inferior vena cava with >50% collapse upon inspiration consistent with normal right atrial pressure, 5 mmHg. Aorta The aortic root size at the sinus of Valsalva is normal. Left Ventricular Outflow Tract Name Value Normal LVOT 2D LVOT Diameter 2.2 cm LVOT Doppler LVOT Peak Velocity 103 cm/s LVOT Peak Gradient 4 mmHg LVOT Mean Gradient 2 mmHg LVOT VTI 20 cm LVOT VTI/AV VTI Ratio 0.9 LVOT Stroke Volume 76 ml LVOT CO 15.5 l/min LVOT CI 7.8 l/min/m2 Pulmonic Valve Name Value Normal PV Doppler PV Peak Velocity 83 cm/s PV Peak Gradient 3 mmHg PV Mean Gradient 1 mmHg Mitral Valve Name Value Normal MV Doppler MV Peak Gradient 3 mmHg MV Mean Gradient 1 mmHg MV Area (Cont Eq VTI) 2.7 cm2 MV Diastolic Function MV E Peak Velocity 72 cm/s MV A Peak Velocity 109 cm/s MV E/A 0.7 MV Decel Time (PW) 235 ms MV Annular TDI MV E/e' (Septal) 15.4 MV E/e' (Lateral) 16.7 MV E/e' (Average) 16.1 Tricuspid Valve Name Value Normal Estimated PAP/RSVP RA Pressure 5 mmHg <=5 TV Annular TDI TV Lateral Elsa s' Velocity 9.9 cm/s >=9.5 Aortic Valve Name Value Normal AV Doppler AV Peak Velocity 132 cm/s AV Peak Gradient 7 mmHg AV Mean Gradient 3 mmHg AV VTI 24 cm AV Area (Cont Eq VTI) 3.2 cm2 >=3.0 AV Area (Cont Eq Joel) 2.9 cm2 AV DI (Joel) 0.78 AV Regurgitation 2D LVOT Area 3.7 cm2 Ventricles Name Value Normal LV Dimensions 2D/MM IVS Diastolic Thickness (2D) 0.8 cm 0.6-1.0 LVID Diastole (2D) 5.7 cm 3.8-5.2 LVIW Diastolic Thickness (2D) 0.7 cm 0.6-0.9 LVID Systole (2D) 4.6 cm 2.2-3.5 LVOT Diameter 2.2 cm LV Mass (2D Cubed) 161.48 g 67.00-162.00 LV Mass Index (2D Cubed) 81 g/m2 43-95 Relative Wall Thickness (2D) 0.25 <=0.42 LV Fractional Shortening/Ejection Fraction 2D/MM LV Fractional Shortening (2D) 19 % 27-45 LV EF (2D Teichholz) 41 % LV Diastolic Volume (4C MOD) 168 ml LV EF (4C MOD) 34 % LV Diastolic Volume (2C MOD) 158 ml LV EF (2C MOD) 45 % LV Diastolic Volume (BP MOD) 167 ml 46-106 LV Diastolic Volume Index (BP MOD) 83 ml/m2 29-61 LV Systolic Volume (BP MOD) 99 ml 14-42 LV Systolic Volume Index (BP MOD) 50 ml/m2 8-24 LV EF (BP MOD) 41 % 54-74 LV Diastolic Length (4C) 9.6 cm LV Systolic Length (4C) 9.1 cm LV Stroke Volume (4C MOD) 58 ml Atria Name Value Normal LA Dimensions LA Volume (4C A-L) 75 ml LA Volume (BP A-L) 68 ml RA Dimensions RA Systolic Major [place] Length (4C) 5.6 cm 2.2-2.8 RA Area (4C) 16.3 cm2 <=18.0 Wall Motion Scoring Wall Motion Scoring Index: 1.82 Report Signatures
--- NOTE | ~2025-01-30 | XR_ITS ---
Examination: XR chest 1V portable Clinical History: chest pain Comparison: 04/23/2024 Technique: Portable AP Findings: Heart size normal. Lungs clear. No acute bony abnormality. IMPRESSION: 1. No acute cardiopulmonary findings given portable technique. Reviewed, dictated and finalized at location R.
--- NOTE | 2025-01-30 04:46 | ECG_ITS ---
Test Date: 2025-01-30 04:48:51 Measurements Intervals [place] Rate: 64 P: 59 NM: 210 QRS: -12 QRSD: 122 T: 172 QT: 446 QTc: 461 Interpretive Statements SINUS RHYTHM WITH FIRST DEGREE AV BLOCK POSSIBLE RIGHT VENTRICULAR CONDUCTION DELAY [RSR (QR) IN V1/V2] MODERATE T-WAVE ABNORMALITY, CONSIDER ANTEROLATERAL ISCHEMIA [-0.1+ mV T-WAVE IN V3-V6] ABNORMAL ECG Compared to ECG 04/23/2024 18:11:34 First degree AV block now present T-wave abnormality still present Possible ischemia still present Electronically Signed On 01-30-2025 08:09:19 CDT by Luke Killian M.D.
--- NOTE | 2025-01-30 04:50 | ED.CHESTPAIN ---
HPI - Chest Pain General Chief Complaint: Chest Pain Stated Complaint: Chest Pain Time Seen by Provider: 01/30/25 04:46 Source: patient and EMS Mode of arrival: EMS Limitations: no limitations History of Present Illness HPI narrative: This is a 69-year-old female with history of CHF, CAD, RAYMOND, hypertension, hyperlipidemia, diabetes who presents the ED for chest pain. Patient states about 4 hours ago, she was trying to goes to sleep when she had onset of sternal chest pain that radiates to her left shoulder. She has never had this pain before. She states that she took 4 baby aspirins with mild improvement of her symptoms. She does follow with a parish worker since then nose and states that she was evaluated for possible defibrillator. She has a new parish worker that she has ischemia but that appointment isn't until May. She denies shortness of breath, nausea vomiting, diarrhea constipation, abdominal pain, recent illnesses, changes in vision, diaphoresis. Related Data Home Medications ?Medication ?Instructions ?Recorded ?Confirmed ?Last Taken ?Type alprazolam 0.5 mg tablet 0.5 mg PO BID 08/25/22 01/30/25 Unknown History aspirin 81 mg tablet,delayed 81 mg PO DAILY 08/25/22 01/30/25 Unknown History release (Adult Low Dose Aspirin) cholecalciferol (vitamin D3) 10 10 mcg PO DAILY 08/25/22 01/30/25 Unknown History mcg (400 unit) capsule duloxetine 60 mg capsule,delayed 60 mg PO DAILY 08/25/22 01/30/25 Unknown History release (Cymbalta) multivitamin (Daily Multi-Vitamin 1 tablet PO DAILY 08/25/22 01/30/25 Unknown History tablet) sacubitril 49 mg-valsartan 51 mg 1 tablet PO BID 01/05/24 01/30/25 Unknown History tablet (Entresto) Allergies Allergy/AdvReac Type Severity Reaction Status Date / Time No Known Allergies Allergy Verified 01/30/25 04:47 Review of Systems Review of Systems: Gen.: Denies fevers or chills Eyes: Denies eye pain or visual change ENT: Denies congestion Respiratory: Denies shortness of breath or cough CV: As per HPI GI: Denies abdominal pain nausea, emesis or diarrhea denies burning, urgency, frequency or hematuria Musculoskeletal: Denies back pain or muscle pain Neuro: Denies numbness, tingling, weakness or focal weakness Skin: Denies rash Except as documented, all other systems reviewed and negative [facility] Past Medical History Medical History Heart failure CAD (coronary atherosclerotic disease) Low TSH level Hx of adenomatous colonic polyps Chronic pancreatitis Dilation of biliary tract RAYMOND (obstructive sleep apnea) Cholecystectomy planned Surgical History Surgical History History of eye surgery Right tear duct H/O tubal ligation Family History Family History Sibling Family history of Parkinson's disease Mother Family history of diabetes mellitus in first degree relative Family history of heart disease in male family member before age 55 Family history of thyroid disease Diabetes mellitus Family history of coronary artery disease Acute myocardial infarction Father Family history of heart disease in male family member before age 55 Heart disease Diabetes mellitus Sibling , Covid-19 Obese Social History Social History Smoking packs per day: 1 Smoking cigarettes per day: 20.0 Years smoked: 50 Smoking pack-years: 50.00 Smoking status: Current every day smoker Tobacco type: cigarettes Second hand tobacco smoke exposure: No Alcohol intake: never Substance use: never Substance use type: does not use Do You Feel Safe in your Home?: Yes Lack of Transportation: No Lack of Food: Never True Current Housing: I Have Housing Concerned About Future Housing: No Difficulty Paying Gas/Electric Bills: No Difficulty Paying for Meds: No Currently Unemployed: No Education: High School Diploma/GED Difficulty w/ Childcare or Family Care: No Living arrangements: with family Additional living arrangements comments: with daughter Occupation/Education: 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 CARDIOVASCULAR: Regular rate and rhythm without murmurs rubs or gallops. ABDOMINAL: Soft, nontender, nondistended, no rebound or guarding MUSCULOSKELETAl: Moves all extremities. No clubbing, cyanosis or edema. NEURO: Awake and alert. Following commands, speech normal, no focal deficits SKIN:: Warm, dry. No rashes lesions or abrasions PSYCHIATRIC: Normal affect/mood, Course Vital Signs Vital signs: Vital Signs Temperature 97.6 F 01/30/25 04:41 Pulse Rate 70 01/30/25 04:41 Respiratory Rate 22 H 01/30/25 04:41 Blood Pressure 149/77 H 01/30/25 04:41 Pulse Oximetry 99 01/30/25 04:41 Oxygen Delivery Room Air 01/30/25 04:41 Temperature 97.6 F 01/30/25 04:41 Pulse Rate 65 01/30/25 04:50 Respiratory Rate 22 H 01/30/25 04:41 Blood Pressure 149/77 H 01/30/25 04:41 Pulse Oximetry 99 01/30/25 04:41 Oxygen Delivery Room Air 01/30/25 04:41 MDM - Chest Pain MDM Narrative Medical decision making narrative: 69-year-old female that presented to the ED for chest pain. On initial evaluation, patient was in no acute distress, afebrile, hemodynamically stable. Heart and lungs were clear. Abdomen was soft nontender. Patient was given nitro for her chest pain with complete resolution of her pain. EKG showed no changes from prior. Initial troponin negative. CMP without significant abnormalities. HEART score 8. Patient will require admission given high heart score. Discussed case with hospitalist who will admit the patient. Patient is agreeable to this plan. Differential Diagnosis Differential diagnosis: Likely unstable angina pectoris, atypical chest pain, costochondritis, chest pain and other (CHF exacerbation, pneumonia) Medical Records Data Attestation: I reviewed the patient's medical records. Lab Data Attestation: I reviewed the patient's lab results. 01/30/25 04:58 01/30/25 04:58 Labs: Lab Results 01/30/25 Range/Units 04:58 WBC 6.7 (4.5-10.0) K/mm3 RBC 4.93 (4.2-5.4) M/mm3 Hgb 14.8 (12.0-15.0) g/dL Hct 45.4 (37.0-47.0) % MCV 92.1 (80-100) fl MCH 30.0 (26-34) pg MCHC 32.6 (32-36) g/dl RDW 13.5 (11.5-14.5) % Plt Count 139 L (150-375) k/mm3 MPV 10.2 (7.4-10.4) fl Immature Gran % (Auto) 0.3 (0-0.5) % Neut % (Auto) 38.9 L (45.5-73.1) % Lymph % (Auto) 47.3 H (18.3-44.2) % [place] % (Auto) 8.2 (2.6-8.5) % Eos % (Auto) 4.9 H (0-4.4) % Baso % (Auto) 0.4 (0.2-1.2) % Lymph # (Auto) 3.19 (0.9-3.2) K/mm3 [place] # (Auto) 0.6 (0.1-0.6) K/mm3 Eos # (Auto) 0.3 (0-0.3) K/mm3 Baso # (Auto) 0.0 (0.0-0.1) K/mm3 Abs Immat Gran (auto) 0.02 (0.00-0.031) K/mm3 Absolute Neuts (auto) 2.6 (1.3-6.7) K/mm3 Absolute Nucleated RBC 0.000 (0.0-0.012) K/mm3 Nucleated RBC % 0.0 (0.0-0.2) % % Immature Plt Fraction 3.2 (0.9-11.2) % PT 14.0 (11.1-14.7) Seconds INR 1.1 APTT 28.7 (22.3-36.8) Seconds Sodium 139 (137-145) mmol/L Potassium 3.6 (3.4-5.0) mmol/L Chloride 106 (98-107) mmol/L Carbon Dioxide 24 (22-30) mmol/L Anion Gap 9 (4-12) mmol/L BUN 12 (7-17) mg/dL Creatinine 0.79 (0.7-1.0) mg/dL Estim Creat Clear Calc 63 ml/min Estimated GFR > 60 (59 - ) Glucose 128 H (65-110) mg/dL Calcium 8.8 (8.4-10.2) mg/dL Total Bilirubin 0.7 (0.2-1.3) mg/dL AST 28 (14-36) U/L ALT 25 (6-35) U/L Alkaline Phosphatase 86 (38-126) U/L Troponin I < 0.012 (0.000-0.034) ng/mL NT-Pro-B Natriuret Pep 357 H (19.9-100) pg/mL Total Protein 7.2 (6.3-8.2) g/dL Albumin 4.4 (3.5-5.1) g/dL Imaging Data Attestation: I personally reviewed and interpreted this imaging study as follows: ECG Data EKG #1: ECG completion date: 01/30/25 ECG completion time: 04:48 Prior ECG tracings: available for review Interpretation: Normal sinus rhythm rate of 64 with first-degree AV block, right ventricular conduction delay, T-wave inversions in anterolateral leads, no acute ST segment changes. Comparison 04/23/2024: No significant change Discharge Plan Discharge Clinical Impression: Angina pectoris, unstable Patient Disposition: Still a Patient Condition: Stable Patient Language: Scottish Prescriptions: No Action duloxetine [Cymbalta] 60 mg capsule,delayed release(DR/EC) 60 mg PO DAILY alprazolam 0.5 mg tablet 0.5 mg PO BID aspirin [Adult Low Dose Aspirin] 81 mg tablet,delayed release (DR/EC) 81 mg PO DAILY cholecalciferol (vitamin D3) 10 mcg (400 unit) capsule 10 mcg PO DAILY multivitamin [Daily Multi-Vitamin] Tablet 1 tablet PO DAILY gabapentin 300 mg capsule 300 mg PO TID Qty: 180 3RF meclizine 25 mg tablet 25 mg PO TID PRN (Reason: dizziness) Qty: 15 1RF Entresto 49-51 mg tablet 1 tablet PO BID rosuvastatin 40 mg tablet See Rx Instructions .ROUTE .COMPLEX Qty: 90 3RF Dose Instruction: TAKE 1 TABLET DAILY Rx Instructions: TAKE 1 TABLET DAILY Jardiance 25 mg tablet 25 mg PO DAILY Qty: 90 3RF metoprolol succinate 25 mg tablet extended release 24 hr 25 mg PO DAILY Qty: 90 1RF Follow-up/Referrals: Martin Lagunas MD [Primary Care Provider, Family Practice]
--- NOTE | 2025-01-30 04:53 | PC.NURSE ---
1st tablet of nitro at 0453
[2025-01-30] MEDS: NITROGLYCERIN SL 0.4 MG TABLET (04:54)
--- NOTE | 2025-01-30 04:58 | PC.NURSE ---
2nd tablet nitro given 0458
[2025-01-30 05:23] LABS: Alanine Aminotransferase 25 U/L (6-35); Albumin Level 4.4 g/dL (3.5-5.1); Alkaline Phosphatase 86 U/L (38-126); Anion Gap 9 mmol/L (4-12); Aspartate Amino Transferase 28 U/L (14-36); Bilirubin,Total 0.7 mg/dL (0.2-1.3); Blood Urea Nitrogen 12 mg/dL (7-17); Calcium 8.8 mg/dL (8.4-10.2); Carbon Dioxide 24 mmol/L (22-30); Chloride 106 mmol/L (98-107); Estimated CRCL calculation 63 ml/min; Estimated Glomerular Filt Rate > 60; Glucose 128 mg/dL (65-110); Potassium 3.6 mmol/L (3.4-5.0); Sodium 139 mmol/L (137-145); Total Protein 7.2 g/dL (6.3-8.2)
[2025-01-30 05:26] LABS: INR 1.1; Prothrombin Time 14.0 Seconds (11.1-14.7)
[2025-01-30 05:27] LABS: Partial Thromboplastin Time 28.7 Seconds (22.3-36.8)
[2025-01-30 05:30] LABS: NT Pro B Type Natriuretic Pept 357 pg/mL (19.9-100); Troponin I < 0.012 ng/mL (0.000-0.034)
[2025-01-30 06:42] LABS: Hematocrit 45.4 % (37.0-47.0); Hemoglobin 14.8 g/dL (12.0-15.0); Immature Granulocyte Percent A 0.3 % (0-0.5); Immature Platelet Fraction Pct 3.2 % (0.9-11.2); Lymphocytes Absolute Auto 3.19 K/mm3 (0.9-3.2); Mean Corpuscular HGB Conc 32.6 g/dl (32-36); Mean Corpuscular Hemoglobin 30.0 pg (26-34); Mean Corpuscular Volume 92.1 fl (80-100); Nucleated Red Blood Cells Absolute Auto 0.000 K/mm3 (0.0-0.012); Nucleated Red Blood Cells Perc 0.0 % (0.0-0.2); Platelet Count Result 139 k/mm3 (150-375); Red Blood Count 4.93 M/mm3 (4.2-5.4); White Blood Count 6.7 K/mm3 (4.5-10.0)
[2025-01-30 07:47] LABS: Add Urine Microscopic? YES; Appearance Urine Clear (Clear); Glucose Urine UA 3+ mg/dL (Negative); Leukocyte Esterase Ur Negative LEU/UL (Negative); Nitrate Urine Negative (Negative); Non Pathogenic Casts 0-2; Specific Grav Ur 1.042 (1.001-1.035)
--- NOTE | 2025-01-30 07:49 | ECG_ITS ---
Test Date: 2025-01-30 08:07:26 Measurements Intervals [place] Rate: 57 P: 57 FL: 248 QRS: -4 QRSD: 119 T: 153 QT: 467 QTc: 457 Interpretive Statements SINUS BRADYCARDIA WITH FIRST DEGREE AV BLOCK LOW QRS VOLTAGE IN PRECORDIAL LEADS [QRS DEFLECTION < 1.0 mV IN CHEST LEADS] POSSIBLE RIGHT VENTRICULAR CONDUCTION DELAY [RSR (QR) IN V1/V2] ST DEVIATION AND MODERATE T-WAVE ABNORMALITY, CONSIDER ANTEROLATERAL ISCHEMIA [-0.1+ mV T-WAVE IN V3-V6] ABNORMAL ECG Electronically Signed On 01-30-2025 08:10:15 CDT by Luke Killian M.D.
[2025-01-30 08:46] LABS: Troponin I < 0.012 ng/mL (0.000-0.034)
--- NOTE | 2025-01-30 08:52 | ADMGEN ---
This patient, Jolly Yin, was admitted to IMU Room 211-01. Patient/family oriented to hospital policies and general routines including ID bracelet, bed and alarms, visiting hours, pain management, procedures, bathroom and other care routines, personal items, smoking policy, room service/diet, and visiting hours. Information on how to activate the Rapid Response Team has been discussed. Patient/Family are encouraged to report perceived risks to care and to ask questions if they do not understand what they are told or what they should do.
--- OUTSIDE RECORDS SUMMARY | 2025-01-30 09:31 | XMS_ITS | Encounter Summary ---
Author Organization [facility] Address [address] [place] [address] Phone Care Team Providers Care Grooming Assistant Name Role Phone Martin Lagunas MD Primary Care Provider + [phone] Encounter Details Date Type Department Care Team (Late st Contact Info) Description 01/04/2025 Telephone [facility] Cardiology [address] [place] [facility] [address]th [place] [address] [place] [address] Vandana Crandall Social History Tobacco Use Types Packs/Day Years Used Date Smoking Tobacco: Every Day Cigarettes Smokeless Tobacco: Never Comments Unknown Sex and Gender Information Value Date Recorded Sex Assigned at Not on file Legal Sex Female 1:58 AM [employer] Gender Identity Not on file Sexual Orientation Not on file documented as of this encounter Miscellaneous Notes * Telephone Encounter - Essie Means CMA - 01/09/2025 11:19 AM CDT Records in chart * Telephone Encounter - Tracy Torres - 01/04/2025 3:15 PM CDT Patient is scheduled with Dr. Franz on 03/29 at [facility]. * Telephone Encounter - Vandana Diana - 01/04/2025 3:07 PM CDT EP SCHEDULING PT RETURNING CALL TO SCHEDULE IOV. NO DEVICE * Telephone Encounter - Vandana Crandall - 01/04/2025 2:27 PM CDT CARDIOLOGY NEW PATIENT RECORDS REVIEW Insurance Information Insurance Library Insurance Provider: Medicare A and B/ Member ID: Group number: Diagnosis and Referring Provider Information (Check for Referrals in [facility]) Cardiac Diagnosis:I50.20 (ICD-10-CM) - Heart failure with reduced ejection fraction Referring Provider:Margie Lin NP Referring Provider Specialty: CARD Referring Provider Phone: Current/Former Maintenance Associate (if different from referring provider): Dr Juanita Lopez -pt will now be seeing Dr Nathanael Astorga at [facility] Current/Former Maintenance Associate Phone: Questions to Determine Placement for Specialty Clinics Cardiology-Oncology Are you actively undergoing cancer treatments including radiation, chemotherapy, or immunotherapy or is this planned in the future?: no When: Where: Congenital Is this a heart condition that has existed since : no Maternal- Cardiology (Females Only) Are you or had a baby in the past year: no Sports Medicine Do you regularly exercise or play sports: no Are the symptoms or concerns associated with acviity: no Hypertension (If yes, must be referred by MD) Are you a hemodialysis or peritoneal dialysis patient: no Referring provider: Cardiology History Questions Have you been hospitalized for cardiac issues: yes When: July 2023 Where: [facility] Have you had an echo: yes When:2023 Where:[facility] Have you had a stress test: yes NM Stress test When:last year Where: Have you had an EKG: yes When 2024 Where: Maintenance Associate's office Have you had a holter monitor: no When: Where: Have you had cardiac imaging(CT or MRI): yes Testing/imaging: When: Approx two weeks ago Where: [facility] Have you had any procedures (cath, CABG, cardioversion, or ablation): yes cath When: Approx 2 years ago Where: [facility] Have you had a sleep study done: yes When: [facility] Where:MAR 2024 Pt does have sleep apnea Pt does have a CPAP - has been using one for years. Do you have an implantable cardiac device: no Type: Occupational Rehabilitation Aide: When: Where: Appointment Details Date: Time: Location: Provider: documented in this encounter Plan of Treatment Not on file documented as of this encounter Visit Diagnoses Not on filedocumented in this encounter Care Teams Grooming Assistant Relationship Specialty Start Date End Date Martin Lagunas MD [address] [place] [address] PCP - General Family Medicine 07/28/23 documented as of this encounter
--- OUTSIDE RECORDS SUMMARY | 2025-01-30 09:31 | XMS_ITS | Patient Health Record ---
Author Organization [facility] As [employer] Address [address] [place] [address] Care Team Providers Care Mortgage Funder Name Role Phone Bebo GARCIA, Martin Primary Care Provider Calli Roger Unavailable [phone] Allergies No Known Allergies Results Component Value Reference Range Notes UDT Reviewed date:10/23/2024 12:18:00 PM Interpretation: Performing Lab: Notes/Report: THC n 0 - 50 ng/ml Cocaine n 0 - 300 ng/ml Amphetamine n 0 - 1000 ng/ml Buprenorphine (BUP) n 0 - 10 ng/ml Secobarbital (Bar) n 0 - 300 ng/ml Oxazepam (BZO) p 0 - 300 ng/ml 5-ohlkwcycnm-3,7-pblhnanz-6,3-diphenylpyrrolidine (ALINE P) n 0 - 300 ng/ml Methamphetamine (MET) n 0 - 1000 ng/ml Methylenedioxymethamphetamine (MDMA) n 0 - 500 ng/ml Morphine (MOP 300/[id number]) n 0 - 300 ng/ml Methadone (MTD) n 0 - 300 ng/ml Phencyclidine (PCP) n 0 - 25 ng/ml Nortriptyline (TCA) n 0 - 1000 ng/ml Oxycodone n 0 - 300 ng/ml x n 0 - 300 ng/ml Reason For Referral No Information Medications Medication SIG (Take, Route, Frequency, Duration) Notes Start Date End Date Status Metoprolol Succinate ER 25 MG Tablet Extended Release 24 Hour Oral; Duration: 90 Days Active metFORMIN HCl 500 MG Tablet Oral 08/03/2023 Not-Taking ALPRAZolam 0.5 MG Tablet take 1 tab twice a day and 1/2 tab daily prn Oral; Duration: 30 days 01/16/2025 Active Gabapentin 300 MG Capsule 1 capsule Oral twice a day 01/23/2025 Active Jardiance 25 MG Tablet Oral; Duration: 90 Days Active Gabapentin 300 mg Capsule TAKE 1 CAPSULE TWICE A DAY Active ALPRAZolam 0.5 MG Tablet take 1 tab twice a day and 1/2 tab daily prn Oral; Duration: 30 days 01/23/2025 Active BABY ASPIRIN 81 MG CHEWABLE TABLET *Reorder from [facility] for eRx and Interaction Alerts* 08/03/2023 Active DULoxetine HCl 60 mg Capsule Delayed Release Particles TAKE 1 CAPSULE DAILY Active Crestor 40 MG Tablet 1 tablet Orally Once a day Active Entresto 49-51 MG Tablet 1 tablet Orally Twice a day Active Immunizations Vaccine Route Administration Date Status Comme [facility] [employer] Covid-19 Vac cine 2nd dose Unknown 04/08/2021 Administered Social History Tobacco Use: Social History Observation Description Date Details (start date - stop date) Current Smoker NA - NA Sex Assigned At : Social History Observation Description Sex Assigned At Female Social History Household: Social Info Question Answer Notes Household Marital status: single Number of adults in household: 2 L lester with 44 y/o daughter who has Bipolar d/o, cannot work Drug/Alcohol: Social Info Question Answer Notes Drugs Have you used drugs other than those for medical reasons in the past 12 months? No Tobacco Use: Social Info Question Answer Notes Tobacco Control (Standard) Tobacco use: Current smoker Additional Details Category Social Info Options Details Migrated Social History Migrated Social History Alcohol Intake: None 01/15/2021,Tobacco Years: Current every day smoker 01/15/2021 Drug/Alcohol: Do you drink alcohol? No Problems Problem Type SNOMED Code ICD Code Onset Dates Problem Status W/U Status Risk Notes Problem Mild recurrent major depression (84837242) Major depressive disorder, recurrent, mild (F33.0) 2023 Active confirmed Problem Moderate recurrent major depression (85256860) Major depressive disorder, recurrent, moderate (F33.1) Active confirmed Problem Generalized anxiety disorder (72962301) Generalized anxiety disorder (F41.1) 2023 Active confirmed Problem Posttraumatic stress disorder (81348200) Post-traumatic stress disorder, chronic (F43.12) 2023 Active confirmed Problem Sleep apnea (61087395) Sleep apnea, unspecified (G47.30) 2023 Active confirmed Problem Obstructive sleep apnea (59917046) Obstructive sleep apnea (G47.33) Active confirmed Problem Neuropathy (183862913) Neuropathy (G62.9) Active confirmed Problem Hypercholesterolemia (41730918) Hypercholesterolemia (E78.00) Active confirmed Problem Tobacco user (501946216) Cigarette nicotine dependence without complication (F17.210) Active confirmed Problem Tobacco use (359928114) Nicotine use (Z72.0) Active confirmed Problem Diabetes mellitus (81034503) Diabetes mellitus (E11.9) Active confirmed Vital Signs Heart Rate 80 /min 01/23/2025 Height-cm 157.48 cm 01/23/2025 Blood pressure diastolic 74 mm Hg 01/23/2025 Weight-kg 85.73 kg 01/23/2025 Height 62.00 in 01/23/2025 Blood pressure systolic 114 mm Hg 01/23/2025 Weight 189 lbs 01/23/2025 BMI 34.56 kg/m2 01/23/2025 Encounters Encounter Location Date Provider Diagnosis [facility] [address] [address] 04/25/2024 Calli Balderas Generalized anxiety disorder F41.1 ; Post-traumatic stress disorder, chronic F43.12 ; Major depressive disorder, recurrent episode, moderate F33.1 and Sleep apnea, unspecified G47.30 [facility] [employer] [address] 07/21/2024 Calli Balderas Generalized anxiety disorder F41.1 ; Post-traumatic stress disorder, chronic F43.12 ; Major depressive disorder, recurrent episode, moderate F33.1 and Sleep apnea, unspecified G47.30 [facility] [address] [address] 10/23/2024 Calli Balderas Major depressive disorder, recurrent, mild F33.0 ; Generalized anxiety disorder F41.1 ; Obstructive sleep apnea G47.33 ; Nicotine use Z72.0 ; Encounter for screening for depression Z13.31 and Encounter for screening for cardiovascular disorders Z13.6 [facility] [address] [address] 01/23/2025 Calli Balderas Generalized anxiety disorder F41.1 ; Major depressive disorder, recurrent, moderate F33.1 and Neuropathy G62.9 [facility] [address] [place] [address] 04/14/2024 Calliart Marieruthie Generalized anxiety disorder F41.1 [facility] [address] [place] [address] 07/21/2024 Calli Marieruthie [facility] [address] [place] [address] 09/28/2024 Calliart Marieruthie Assessments Encounter Date Diagnosis (ICD Code) Assessment Notes Treatment Notes Treatment Clinical Notes Section Notes 04/14/2024 Generalized anxiety disorder (ICD-10 - F41.1) 01/23/2025 Major depressive disorder, recurrent, moderate (ICD-10 - F33.1) neuroptahy 01/23/2025 Generalized anxiety disorder (ICD-10 - F41.1) neuroptahy 04/25/2024 Generalized anxiety disorder (ICD-10 - F41.1) Assessment and Plan: 1. PTSD, Depression, and Anxiety: - ongoing stressors exacerbate her depression and anxiety, but reports overall medications are helpful, she's managing. 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 Will revisit topic next visit - Monitor mood and anxiety levels. - Consider increasing Cymbalta dose if symptoms persist or worsen at next visit. - Encourage healthy lifestyle: balanced diet, regular exercise - Monitor heart function and symptoms closely. - Encourage regular blood pressure monitoring and reporting of significant changes. - Educate on importance of heart-healthy lifestyle and medication adherence. - Encourage continued use of CPAP as prescribed. - Encourage smoking cessation and provide resources. Follow-up 3 months to monitor progress and address concerns or symptom changes. 04/25/2024 Post-traumatic stress disorder, chronic (ICD-10 - F43.12) Assessment and Plan: 1. PTSD, Depression, and Anxiety: - ongoing stressors exacerbate her depression and anxiety, but reports overall medications are helpful, she's managing. Discussed meds, no changes at this time Plan: - Continue duloxetine 60 mg daily - Continue gabapentin 300 mg BID - continue alprazolam 0.5 mg, 1 whole tab twice a day, 1/2 tablet once a day as needed - discussed short term relief for care home problem, risks of care home use, use with sleep apnea, use in aging populations. Will revisit topic next visit - Monitor mood and anxiety levels. - Consider increasing Cymbalta dose if symptoms persist or worsen at next visit. - Encourage healthy lifestyle: balanced diet, regular exercise - Monitor heart function and symptoms closely. - Encourage regular blood pressure monitoring and reporting of significant changes. - Educate on importance of heart-healthy lifestyle and medication adherence. - Encourage continued use of CPAP as prescribed. - Encourage smoking cessation and provide resources. Follow-up 3 months to monitor progress and address concerns or symptom changes. 04/25/2024 Major depressive disorder, recurrent episode, moderate (ICD-10 - F33.1) Assessment and Plan: 1. PTSD, Depression, and Anxiety: - ongoing stressors exacerbate her depression and anxiety, but reports overall medications are helpful, she's managing. Discussed meds, no changes at this time Plan: - Continue duloxetine 60 mg daily - Continue gabapentin 300 mg BID - continue alprazolam 0.5 mg, 1 whole tab twice a day, 1/2 tablet once a day as needed - discussed short term relief for care home problem, risks of care home use, use with sleep apnea, use in aging populations. Will revisit topic next visit - Monitor mood and anxiety levels. - Consider increasing Cymbalta dose if symptoms persist or worsen at next visit. - Encourage healthy lifestyle: balanced diet, regular exercise - Monitor heart function and symptoms closely. - Encourage regular blood pressure monitoring and reporting of significant changes. - Educate on importance of heart-healthy lifestyle and medication adherence. - Encourage continued use of CPAP as prescribed. - Encourage smoking cessation and provide resources. Follow-up 3 months to monitor progress and address concerns or symptom changes. 07/21/2024 Generalized anxiety disorder (ICD-10 - F41.1) 10/23/2024 Major depressive disorder, recurrent, mild (ICD-10 - F33.0) 10/23/2024 Generalized anxiety disorder (ICD-10 - F41.1) 07/21/2024 Post-traumatic stress disorder, chronic (ICD-10 - F43.12) 04/25/2024 Sleep apnea, unspecified (ICD-10 - G47.30) Assessment and Plan: 1. PTSD, Depression, and Anxiety: - ongoing stressors exacerbate her depression and anxiety, but reports overall medications are helpful, she's managing. 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 Will revisit topic next visit - Monitor mood and anxiety levels. - Consider increasing Cymbalta dose if symptoms persist or worsen at next visit. - Encourage healthy lifestyle: balanced diet, regular exercise - Monitor heart function and symptoms closely. - Encourage regular blood pressure monitoring and reporting of significant changes. - Educate on importance of heart-healthy lifestyle and medication adherence. - Encourage continued use of CPAP as prescribed. - Encourage smoking cessation and provide resources. Follow-up 3 months to monitor progress and address concerns or symptom changes. 01/23/2025 Neuropathy (ICD-10 - G62.9) neuroptahy 10/23/2024 Obstructive sleep apnea (ICD-10 - G47.33) 07/21/2024 Major depressive disorder, recurrent episode, moderate (ICD-10 - F33.1) 10/23/2024 Nicotine use (ICD-10 - Z72.0) 10/23/2024 Encounter for screening for depression (ICD-10 - Z13.31) 07/21/2024 Sleep apnea, unspecified (ICD-10 - G47.30) 10/23/2024 Encounter for screening for cardiovascular disorders (ICD-10 - Z13.6) 07/21/2024 Other Lexi Yin, a woman with severe cardiac issues including 70% heart damage, cardiac aneurysm, and risk of congestive heart failure, presents with anxiety about her health condition and sleep difficulties. Severe Cardiac Disease Assessment: Patient reports severe cardiac compromise with only 30% of heart functioning, confirmed by recent cardiology evaluation. History includes a cardiac aneurysm and suspected prior major myocardial infarction. Risk of congestive heart failure noted. Current cardiac medications include Entresto, metoprolol, and Jardiance. Patient experiences dyspnea with minimal exertion and positional sleep difficulties. Recent episode of cardiac pings reported. Catheterization performed one year ago. Comorbidities include diabetes with elevated A1c and tobacco use. Plan: - Continue current cardiac medications: Entresto, metoprolol, and Jardiance - Advise weight monitoring and dietary modifications to prevent congestive heart failure - Recommend gradual increase in physical activity, starting with walking half a block - Instruct patient to avoid strenuous exercise and heavy lifting - Educate on importance of smoking cessation - Advise immediate ER evaluation for any cardiac symptoms - Follow up with sodium methylate operator on the as scheduled Anxiety and Insomnia Assessment: Patient expresses significant anxiety related to cardiac condition, particularly fear of dying during sleep. This anxiety is contributing to insomnia. Patient has alprazolam prescription, which has not been used for sleep. Previous trial of melatonin resulted in grogginess. Plan: - Trial of alprazolam at bedtime for insomnia - Refer to [facility] for psychotherapy - Discuss potential sleep medication options with sodium methylate operator, including hydroxyzine or mirtazapine - Follow up in three months or sooner if needed Balance Disorder Assessment: Patient reports 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 Currently undergoing brain balance therapy at [facility], as referred by Dr. Rock's office. Plan: - Continue brain balance therapy at [facility] Obstructive Sleep Apnea Assessment: Patient reports use of CPAP machine, indicating diagnosed obstructive sleep apnea. Plan: - Continue CPAP therapy as prescribed Constipation Assessment: Patient reports constipation as a side effect of current medications. Plan: - Continue fiber supplementation for constipation management 10/23/2024 Other Lexi Yin is a female patient with a history of heart disease, presenting with chronic dizziness, functional decline, and mood concerns. Cardiovascular Disease Assessment: Patient reports 70% of her heart is . She mentions her blood pressure is low but provides a reading of 118/75, which is within normal range. Patient reports chronic dizziness, which she states has been present forever. Given the severity of her reported heart condition, this could be related to reduced cardiac output or medication side effects. Plan: - Follow up with new primary care physician on November 22 for management of cardiovascular disease. Functional Decline Assessment: Patient reports difficulty doing things in general and states she is getting slower. This functional decline is causing frustration as she can't perform activities she used to do. The etiology of this decline is unclear but could be related to her cardiovascular condition, mood, or other factors not mentioned in the transcript. Depression and Anxiety Assessment: Patient describes her mood as okay but mentions frustration related to her functional decline. She is currently taking duloxetine 60 mg, gabapentin for anxiety. Patient also reports using Xanax during a recent trip to [place], indicating possible situational anxiety. Plan: - Continue duloxetine 60 mg PO daily - Continue gabapentin - Continue Xanax as needed 01/23/2025 Other Lexi Yin, female, presents with multiple medical concerns including cardiac issues, neuropathy, and ongoing management of anxiety and depression. Anxiety and Depression Assessment: Patient experiences anxiety managed with alprazolam (Xanax). Recent episode of misplacing medication led to mild withdrawal symptoms, including feeling fuzzy and near-fainting sensations. She reports currently feeling more depressed but managing, connects her feelings ot her health condition and denies need to adjust current treatment regimen. Current treatment includes duloxetine 60mg for depression and anxiety and gabapentin and alprazolam for specifially anxiety. Plan: - Continue duloxetine 60 mg daily - Continue gabapentin 300 mg BID - Alprazolam 0.5mg PO BID, with additional half tablet PRN between doses - Consider increasing duloxetine dose for better anxiety and pain management Cardiac Issues Assessment: Patient reports her heart is dying and mentions an aneurysm. A defibrillator implantation is being considered, with a tentative date of March 29. This suggests significant cardiac dysfunction, possibly heart failure or arrhythmia, warranting close monitoring and intervention. Plan: - Await scheduled defibrillator implantation on March 29 - Follow up with sodium methylate operator in May (patient to schedule appointment 3 weeks prior) Neuropathy Assessment: Patient reports development of neuropathy after starting Jardiance. Symptoms include tingling and numbness in feet, with sensation of stepping on rocks. Primary care provider seems to be trying to manage these medications and symptoms, and Lexi decline her offer of increasing gabapentin. She denies need to increase duloxetine Plan: - Continue to monitor neuropathy - Reports concerns from Jardiance to PCP Functional Limitations Assessment: Patient reports conflicting medical advice regarding activity levels. One doctor recommends walking, while another advises reducing activities, avoiding grass-cutting and hot sun exposure. Patient expresses desire to be more active but feels physically limited. Plan: - Advise patient to follow more conservative activity recommendations (avoid grass-cutting, hot sun exposure) - Encourage light, tolerable activities within limits of cardiac condition Follow-up Assessment: Regular follow-up is necessary to monitor multiple complex medical issues and medication management. Plan: - Schedule appointment in approximately 3 months Medical Decision Making Lexi Yin is a female patient with a complex cardiac history, including a dying heart and an aneurysm, scheduled for defibrillator placement in March. She presents with multiple concerns including neuropathy, circulation issues, and medication management. The patient's report of feeling fuzzy and near-fainting when missing Xanax doses indicates potential benzodiazepine dependence. Circulation issues, possibly related to cardiac dysfunction or medication side effects (e.g., Jardiance), are noted. The conflicting medical advice regarding activity levels (walking vs. cutting back on activities) highlights the complexity of managing her multiple comorbidities. The decision to potentially increase duloxetine is based on its known efficacy for both depression and neuropathic pain, which could address multiple symptoms simultaneously. neuroptahy Plan Of Treatment Next Appt Details Provider Name:Calli lozada, 04/23/2025 11:15:00 AM, [address], [facility] [address], [address], Insurance Providers Payer Name Payer Address Payer Phone Subscriber Number Group Number Insured Name Patient Relationship to Insured Coverage Start Date Coverage End Date [place] [address] [place] [phone] [id number] LXEI YIN Self - patient is the insured For Life - Medicare Supplement [address] [place] [address] [id number] LEXI YIN Self - patient is the insured Medical (General) History Medical History History ICD Code Problems: Chronic post-traumatic stress disorder Generalized anxiety disorder Long-term drug therapy- lorazepam Major Depressive Disorder Morbid obesity Hypercholesterolemia E78.00 Diabetes mellitus E11.9 Cigarette nicotine dependence without co mplication F17.210 Obstructive sleep apnea G47.33 Surgical History Surgery Date(Month/Year) cardiac cath 07/2023
--- OUTSIDE RECORDS SUMMARY | 2025-01-30 09:31 | XMS_ITS | Clinical Summary ---
Author Organization [facility] Address [address] [place] [address] Care Team Providers Care Purification Supervisor Name Role Phone Unavailable Primary Care Provider Unavailabl e Social History Tobacco Use Types Packs/Day Years Used Date Smoking Tobacco: Never Assessed Comments Unknown Sex and Gender Information Value Date Recorded Sex Assigned at Not on file Legal Sex Female 7:54 PM CDT Gender Identity Not on file Sexual Orientation Not on file Plan of Treatment Health Maintenance Due Date Last Done Comments Colorectal Cancer Screening Colonoscopy (10 Years) 1956 Hepatitis C 1974 DTaP, Tdap and Td Vaccines ( 1 - Tdap) 09/10/1975 Mammogram Screening 1996 Pneumococcal Vaccine: 50+ Ye ars (1 of 1 - PCV) 2006 Zoster Vaccines (1 of 2) 2006 Dexa Scan (General) 2021 COVID-19 Vaccine ( - 2023-2 5 season) 2025 RSV Immunization or 60+ Years (1 - 1-dose 75+ series) 09/10/2031 Meningococcal B Vaccine Aged Out No l onger eligible based on patient's age to complete this topic Meningococcal Vaccine Aged Out No jazmyne evangelist eligible based on patient's age to complete this topic RSV Immunizations Under 20 Months Aged Out No longer eligible based on patient's age to complete this topic
--- OUTSIDE RECORDS SUMMARY | 2025-01-30 09:31 | XMS_ITS | Clinical Summary ---
Author Organization [facility] Address [address] [place] [id number] Care Team Providers Care Internal Sales Engineer Name Role Phone Martin Lagunas MD Primary Care Provider [phone] Allergies No known active allergies Medications Xanax 0.5 mg tablet Take 1 tablet (0.5 mg total) by mouth every 12 hours 7 Active duloxetine HCl (CYMBALTA ORAL) Take 1 capsule by mouth daily 50 mg 7 Active metFORMIN (Glucophage) 500 mg tablet Take 1 tablet (500 mg total) by mouth daily 2 Active metoprolol XL (TOPROL-XL) 25 mg extended release tablet Take 1 tablet (25 mg total) by mouth daily 4 Active Crestor 20 mg tablet Take 1 tablet (20 mg total) by mouth daily 2 Active gabapentin (NEURONTIN) 300 mg capsule Take 1 capsule (300 mg total) by mouth 2 (two) times a day Active aspirin 81 mg enteric coated tablet Take 1 tablet (81 mg total) by mouth daily Active vitamin D3-vitamin K2 1,250-200 mcg capsule Take 5,000 mcg by mouth Active multivit-mineral engineer [id number] tablet Take by mouth Active meclizine (ANTIVERT) 25 mg tablet as needed 4 Active Jardiance 25 mg tablet Oral for 90 Days Active Entresto 49-51 mg tablet TAKE 1 TABLET TWICE A DAY 180 tablet 3 5 Active sacubitriL-jeff sartan (Entresto) 49-51 mg tablet TAKE 1 TABLET TWICE A DAY 180 tablet 5 01/10/20 25 Discontinued Active Problems Problem Noted Date Diagnosed Date Coronary artery disease invo lving [place] coronary artery of [place] heart without angina pectoris 05/04/2024 Heart failure with mildly re duced ejection fraction (HFmrEF) 05/04/2024 Primary hypertension 05/04/2024 Mixed hyperlipidemia 05/04/2024 Dizziness and giddiness 09/14/2023 Sensation of fullness in both ears 09/14/2023 Tinnitus of both ears 09/14/2023 Impacted cerumen of right ear 09/14/2023 Encounters Date Type Department Care Team Description 01/04/2025 Telephone [facility] Cardiology [address] [place] [address] [place] [address] Vandana Crandall 12/26/2024 Results Follow-Up [facility] Cardiology [address] [place] [phone] Margie Lin NP MRI Cardiac M&F W WO Contrast 12/22/2024 12:40 PM CDT - 12/22/2024 11:59 PM CDT Hospital Encounter [facility] [address] [place] [address] Heart failure with reduced ejection fraction; Left ventricular aneurysm Discharge Disposition: Discharge to home or self care 11/20/2024 1:00 PM CDT Office Visit [facility] Cardiology [address] [place] [phone] Margie Lin NP Coronary artery disease involving [place] coronary artery of [place] heart without angina pectoris; Heart failure with reduced ejection fraction (HCC); Left ventricular aneurysm; Mixed hyperlipidemia; Tobacco use 11/20/2024 Telephone [facility] Cardiology [address] [place] [address] Margie Lin NP from Last 3 Months Surgical History Surgery Date Site/Laterality Comments TUBAL LIGATION CHOLECYSTECTOMY TEAR DUCT SURGERY CARDIAC CATHETERIZATION Medical History Medical History Date Comments Hypertension Hyperlipidemia Diabetes mellitus (HCC) Sleep apnea Anxiety Heart disease History of angina Tinnitus Dizziness Ear problems Headache Family History Medical History Relation Name Comments Heart attack Mother Heart failure Mother Relation Name Status Comments Father Mother Sister 1 Alive Sister 2 Alive Social History Tobacco Use Types Packs/Day Years Used Date Smoking Tobacco: Every Day Cigarettes Smokeless Tobacco: Never Tobacco Cessation:Ready to Q uit: Not Asked; Counseling Given: Not Answered Comments Unknown Sex and Gender Information Value Date Recorded Sex Assigned at Not on file Legal Sex Female 1:58 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 Gender Identity Not on file Sexual Orientation Not on file Obstetrics History Last Filed Vital Signs Vital Sign Reading Time Taken Comments Blood Pressure 120/68 11/20/2024 1:02 PM CDT Pulse 70 11/20/2024 1:02 PM CDT Temperature - - Respiratory Rate 16 07/06/2024 1:04 PM MEDICAL CLERICAL ASSISTANT Oxygen Saturation 95% 11/20/2024 1:02 PM CDT Inhaled Oxygen Concentration - - Weight 86.2 kg (190 lb) 11/20/2024 1:02 PM CDT Height 160 cm (5' 3) 11/20/2024 1:02 PM CDT Body Mass Index 33.66 11/20/2024 1:02 PM CDT Plan of Treatment Health Maintenance Due Date Last Done Comments Breast Cancer Screening-Mammogram 1956 Colon Cancer Screening-Colonoscopy 1955 Depression Screening 1956 Fall Risk Assessment 1956 Hepatitis C Screening 1956 Osteoporosis Screening-Bone Density Scan 1956 DTaP/Tdap/Td Vaccine (1 - Tdap) 09/10/1967 Hepatitis B Screening 1974 Pneumococcal vaccine 65+ (1 of 2 - PCV) 09/10/1975 Zoster Vaccine (1 of 2) 2006 Well Visit 65+ 2021 Influenza Vaccine (#1) 2025 Procedures Procedure Name Priority Date/Time Associated Diagnosis Comments MRI CARDIAC M&FUNC W WO CONTRAST Schedule Routine, Read Routine (OP Routine) 12/22/2024 2:36 PM CDT Heart failure with reduced ejection fraction Left ventricular aneurysm POCT LIPID PANEL Routine 11/20/2024 1:10 PM CDT Mixed hyperlipidemia from Last 3 Months Results * MRI Cardiac M&F W WO Contrast (12/22/2024 2:36 PM CDT) Anatomical Region Laterality Modality Body N/A Magnetic Resonan ce 12/25/2024 9:49 AM CDT Impressions 12/25/2024 9:49 AM CDT 1. There is a large left ventricular aneursym extending from the mid septum/anterior wall to the apex, similar to the prior exam. No associated left ventricular thrombus is noted. Left ventricular ejection fraction is 25%, similar to the prior study. 2. Normal right ventricular size and function 3. Mild to moderate aortic regurgitation (regurgitant fraction 20%); correlate with recent ECHOs 4. Outside of the left ventricular aneurysm that is thin and transmurally infarcted, there is no abnormal T1/T2 signal or LGE to suggest further scar, infiltration, or inflammation. Electronically signed by: Roman Pena M.D. Narrative 12/25/2024 9:49 AM CDT EXAM: Cardiac MRI Morphology and Function with Contrast, w/ Cardiac MRI Flow Quantification DATE OF EXAMINATION: 12/22/2024 1:15 PM COMPARISON: May 2024 TECHNIQUE: Multiplanar MR imaging of the heart utilizing HASTE and TRUEFISP imaging sequences was performed with the of 17 mL intravenous gadolinium contrast agent according to a custom monitored protocol. 3-D postprocessing was subsequently performed on a dedicated 3-D workstation. HISTORY: Cardiomyopathy, follow up LV aneurysm reassessment BSA 1.96 meter2. Anatomy: D-Loop, levocardia; No evidence of anomalous coronaries; normal cavo-atrial communication; no anomalous pulmonary venous return; no SANJAY thrombus noted. No aortic dilation/aneurysm. Normal pulmonary artery. Normal pericardium Left Ventricular (LV) Size and Function: Borderline mildly dilated left ventricle, left ventricular aneurysm is once again Appreciated Similar to Prior study. No left ventricular thrombus noted.. LV functional parameters: LVEF, 25%. (Normal: >50%) LV end diastolic volume, 172 mL, index 88 ml/m2 (Normal <84ml/m2) LV end systolic volume, 44 mL, index 66 ml/m2 Stroke volume, 44 mL. index 22 ml/m2 Cardiac output, 2.4 L/min. index 1.3 ml/m2 Right Ventricular Size and Function: Normal right ventricular size and function. RV functional parameters: RVEF, 51%. (Normal: >47%) RV end diastolic volume, 87 mL, index 45 ml/m2 (Normal <89ml/m2) RV end systolic volume, 43 mL, index , 22 ml/m2 Stroke volume, 44 mL , index 23 ml/m2 Cardiac output, 2.5 L/min , index 1.3 ml/m2 Late gadolinium enhancement: The left ventricular apical aneurysm remains unchanged. Transmural LGE along the segments here. All remaining segments show no LGE . Myocardial T1 measurements: Normal T1 values outside of the left ventricular aneurysm, which is too thin to quantiy Myocardial T2 measurements: Normal T2 values outside of the left ventricular aneurysm, which is too thin to quantiy Valves: Mitral valve No significant regurgitation or stenosis. Tricuspid valve No significant regurgitation or stenosis . Pulmonic valve Trivial regurgitation, no stenosis. Aortic valve there is a posteriorly directed eccentric aortic regurgitation jet that appears to be possibly moderate by phase contrast imaging. Flow Quantification: Aorta above valve (HR 56 bpm) Peak velocity 1.5 m/sec; Fwd 32 ml Regurgitant volume 6; Regurgitant fraction 20% Net 25 ml Flow/CO 1.7 L/min MPA ( HR 56 bpm) Peak velocity 1.0 m/sec Fwd 34 ml Regurgitant volume 2; Regurgitant fraction 5% Net 33 ml Flow/CO 2.4 L/min Qp:Qs: 1:! Incidental Findings: None Procedure Note Roman Pena MD - 12/25/2024 EXAM: Cardiac MRI Morphology and Function with Contrast, w/ Cardiac MRI Flow Quantification DATE OF EXAMINATION: 12/22/2024 1:15 PM COMPARISON: May 2024 TECHNIQUE: Multiplanar MR imaging of the heart utilizing HASTE and TRUEFISP imaging sequences was performed with the of 17 mL intravenous gadolinium contrast agent according to a custom monitored protocol. 3-D postprocessing was subsequently performed on a dedicated 3-D workstation. HISTORY: Cardiomyopathy, follow up LV aneurysm reassessment BSA 1.96 meter2. Anatomy: D-Loop, levocardia; No evidence of anomalous coronaries; normal cavo-atrial communication; no anomalous pulmonary venous return; no SANJAY thrombus noted. No aortic dilation/aneurysm. Normal pulmonary artery. Normal pericardium Left Ventricular (LV) Size and Function: Borderline mildly dilated left ventricle, left ventricular aneurysm is once again Appreciated Similar to Prior study. No left ventricular thrombus noted.. LV functional parameters: LVEF, 25%. (Normal: >50%) LV end diastolic volume, 172 mL, index 88 ml/m2 (Normal <84ml/m2) LV end systolic volume, 44 mL, index 66 ml/m2 Stroke volume, 44 mL. index 22 ml/m2 Cardiac output, 2.4 L/min. index 1.3 ml/m2 Right Ventricular Size and Function: Normal right ventricular size and function. RV functional parameters: RVEF, 51%. (Normal: >47%) RV end diastolic volume, 87 mL, index 45 ml/m2 (Normal <89ml/m2) RV end systolic volume, 43 mL, index , 22 ml/m2 Stroke volume, 44 mL , index 23 ml/m2 Cardiac output, 2.5 L/min , index 1.3 ml/m2 Late gadolinium enhancement: The left ventricular apical aneurysm remains unchanged. Transmural LGE along the segments here. All remaining segments show no LGE . Myocardial T1 measurements: Normal T1 values outside of the left ventricular aneurysm, which is too thin to quantiy Myocardial T2 measurements: Normal T2 values outside of the left ventricular aneurysm, which is too thin to quantiy Valves: Mitral valve No significant regurgitation or stenosis. Tricuspid valve No significant regurgitation or stenosis . Pulmonic valve Trivial regurgitation, no stenosis. Aortic valve there is a posteriorly directed eccentric aortic regurgitation jet that appears to be possibly moderate by phase contrast imaging. Flow Quantification: Aorta above valve (HR 56 bpm) Peak velocity 1.5 m/sec; Fwd 32 ml Regurgitant volume 6; Regurgitant fraction 20% Net 25 ml Flow/CO 1.7 L/min MPA ( HR 56 bpm) Peak velocity 1.0 m/sec Fwd 34 ml Regurgitant volume 2; Regurgitant fraction 5% Net 33 ml Flow/CO 2.4 L/min Qp:Qs: 1:! Incidental Findings: None IMPRESSION: 1. There is a large left ventricular aneursym extending from the mid septum/anterior wall to the apex, similar to the prior exam. No associated left ventricular thrombus is noted. Left ventricular ejection fraction is 25%, similar to the prior study. 2. Normal right ventricular size and function 3. Mild to moderate aortic regurgitation (regurgitant fraction 20%); correlate with recent ECHOs 4. Outside of the left ventricular aneurysm that is thin and transmurally infarcted, there is no abnormal T1/T2 signal or LGE to suggest further scar, infiltration, or inflammation. Electronically signed by: Roman Pena M.D. Margie Lin NP IMG MRI PROCEDURES Final Result * (ABNORMAL) POCT lipid panel (11/20/2024 1:10 PM CDT) Cholesterol, POC 169 <200 MG/DL HDL, POC 41 >=40 mg/dL Triglycerides, POC 507(A) <=149 mg/dL LDL Cholesterol POC 77 <=129 mg/dL Chol/HDL Ratio, POC 0 NONE Non-HDL Cholesterol, POC 128 NONE mg/dL Cholesterol Total, POC 169 30 - 199 mg/dL Capillary blood 11/20/2024 1 :10 PM CDT Margie Lin NP POINT OF CARE TEST ORDERA BLES Final Result from Last 3 Months Insurance MEDICARE [employer] MEDICARE FOR LIFE Care Teams Internal Sales Engineer Relationship Specialty Start Date End Date Martin Lagunas MD [address] [place] [address] PCP - General Family Medicine 07/28/23
[2025-01-30] MEDS: DULoxetine HCL 60 MG CAPSULE.DR PO (10:54)
[2025-01-30] MEDS: CHOLECALCIFEROL (VITAMIN D3) 10 MCG (400 UNITS) TABLET PO (10:54)
[2025-01-30] MEDS: METOPROLOL SUCCINATE EXT REL 25 MG TABCR PO (10:54)
[2025-01-30] MEDS: ROSUVASTATIN 20 MG TABLET 40 MG BY MOUTH (10:54)
[2025-01-30] MEDS: ALPRAZolam (*CRX) 0.5 MG TABLET PO ×2 (10:54→18:08)
[2025-01-30] MEDS: SACUBITRIL/VALSARTAN 49-51 MG TABLET 1 TABLET PO ×2 (10:54→20:15)
[2025-01-30] MEDS: EMPAGLIFLOZIN 25 MG TABLET PO (10:55)
[2025-01-30] MEDS: MULTIVITAMINS THERAPEUTIC TAB (*BKC) 1 TABLET PO (10:55)
[2025-01-30] MEDS: GABAPENTIN 300 MG CAPSULE PO ×3 (10:55→18:08)
[2025-01-30] MEDS: ASPIRIN 81 MG ENTERIC TABLET PO (10:55)
[2025-01-30 11:52] LABS: Troponin I < 0.012 ng/mL (0.000-0.034)
--- NOTE | 2025-01-30 12:37 | PM.IMHP ---
H&P: HPI History of Present Illness Date/Time: 01/30/25 12:37 Chief Complaint: chest pain Narrative: 69-year-old female with history of CHF, CAD, RAY[place], hypertension, hyperlipidemia, diabetes who presents the ED for chest pain. Patient states about 4 hours ago, she was trying to goes to sleep when she had onset of sternal chest pain that radiates to her left shoulder. She has never had this pain before. She states that she took 4 baby aspirins with mild improvement of her symptoms. Denies any additional shortness of breath, fever, chills. Chest x-ray done in the ER was unremarkable. EKG was unremarkable, troponin, initial level was unremarkable. Received sublingual nitro with improvement in pain. Admitted for further workup. Review of Systems Review of Systems: All systems reviewed & are unremarkable except as noted in HPI and below PMFSH Past Medical History Medical History Heart failure CAD (coronary atherosclerotic disease) Low TSH level Hx of adenomatous colonic polyps Chronic pancreatitis Dilation of biliary tract RAYMOND (obstructive sleep apnea) Cholecystectomy planned Surgical History Surgical History History of eye surgery Right tear duct H/O tubal ligation Family History Family History Sibling Family history of Parkinson's disease Mother Family history of diabetes mellitus in first degree relative Family history of heart disease in male family member before age 55 Family history of thyroid disease Diabetes mellitus Family history of coronary artery disease Acute myocardial infarction Father Family history of heart disease in male family member before age 55 Heart disease Diabetes mellitus Sibling , Covid-19 Obese Social History Social History Smoking packs per day: 0.75 Smoking cigarettes per day: 15.0 Years smoked: 42 Smoking pack-years: 31.50 Smoking status: Current every day smoker Tobacco type: cigarettes Second hand tobacco smoke exposure: No Alcohol intake: never Substance use: never Substance use type: does not use Do You Feel Safe in your Home?: Yes Lack of Transportation: No Lack of Food: Never True Current Housing: I Have Housing Concerned About Future Housing: No Difficulty Paying Gas/Electric Bills: No Difficulty Paying for Meds: No Currently Unemployed: No Education: High School Diploma/GED Difficulty w/ Childcare or Family Care: No Living arrangements: with family Additional living arrangements comments: with daughter 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 Gender identity (if verbalized by the patient): Female Spiritual care concerns: No Meds Home Medications and Allergies Home Medications ?Medication ?Instructions ?Recorded ?Confirmed ?Type alprazolam 0.5 mg tablet 0.5 mg PO BID 08/25/22 01/30/25 History aspirin 81 mg tablet,delayed 81 mg PO DAILY 08/25/22 01/30/25 History release (Adult Low Dose Aspirin) cholecalciferol (vitamin D3) 10 10 mcg PO DAILY 08/25/22 01/30/25 History mcg (400 unit) capsule duloxetine 60 mg capsule,delayed 60 mg PO DAILY 08/25/22 01/30/25 History release (Cymbalta) multivitamin (Daily Multi-Vitamin 1 tablet PO DAILY 08/25/22 01/30/25 History tablet) sacubitril 49 mg-valsartan 51 mg 1 tablet PO BID 01/05/24 01/30/25 History tablet (Entresto) rosuvastatin 40 mg tablet See Rx Instructions .Route 12/22/24 01/30/25 Rx .COMPLEX #90 tabs gabapentin 300 mg capsule 300 mg PO TID #180 caps 01/04/25 01/30/25 Rx meclizine 25 mg tablet 25 mg PO TID PRN dizziness #15 tabs 01/04/25 01/30/25 Rx empagliflozin 25 mg tablet 25 mg PO DAILY #90 tabs 01/08/25 01/30/25 Rx (Jardiance) metoprolol succinate 25 mg 25 mg PO DAILY #90 tabs 01/22/25 01/30/25 Rx tablet,extended release 24 hr docusate sodium 100 mg capsule 100 mg PO DAILY 01/30/25 01/30/25 History (Colace) Allergies Allergy/AdvReac Type Severity Reaction Status Date / Time No Known Allergies Allergy Verified 01/30/25 04:47 Vital Signs Vital Signs - 24 hr 01/30/25 04:41 01/30/25 04:50 01/30/25 08:45 Temperature 97.6 F 98.1 F Pulse Rate 70 65 60 Respiratory Rate 22 H 20 Blood Pressure 149/77 H 114/53 L Pulse Oximetry 99 97 Oxygen Delivery Room Air 01/30/25 09:17 01/30/25 10:00 01/30/25 10:07 Temperature Pulse Rate 60 61 Respiratory Rate 20 Blood Pressure Pulse Oximetry 97 92 Oxygen Delivery Room Air Room Air 01/30/25 10:54 01/30/25 11:56 01/30/25 12:00 Temperature 98.3 F Pulse Rate 65 71 60 Respiratory Rate 16 20 Blood Pressure 97/57 L Pulse Oximetry 95 97 Oxygen Delivery Room Air 01/30/25 12:00 Temperature Pulse Rate 59 L Respiratory Rate Blood Pressure Pulse Oximetry Oxygen Delivery Exam Const: General: comfortable and no acute distress HENMT: Mouth: Yes moist mucous membranes Eyes: Sclera: sclerae normal Neck: Neck: supple Resp: Effort & Inspection: normal respiratory effort Auscultation: clear to auscultation bilaterally Cardio: Rate: regular rate Rhythm: regular rhythm GI: GI Palp: Yes Soft to palpation Auscultation: normal bowel sounds Skin: General skin exam: normal color Neuro: Speech: normal speech Extrem: General: normal to inspection Psych: Mental Status: mental status grossly normal Affect: normal affect H&P: Results Labs Labs: Short CBC 01/30/25 Range/Units 04:58 WBC 6.7 (4.5-10.0) K/mm3 Hgb 14.8 (12.0-15.0) g/dL Hct 45.4 (37.0-47.0) % Plt Count 139 L (150-375) k/mm3 BMP 01/30/25 04:58 Sodium 139 Potassium 3.6 Chloride 106 Carbon Dioxide 24 BUN 12 Creatinine 0.79 Glucose 128 H Calcium 8.8 Cardiac Enzymes 01/30/25 01/30/25 01/30/25 Range/Units 04:58 08:14 11:15 Troponin I < 0.012 < 0.012 < 0.012 (0.000-0.034) ng/mL Liver Function 01/30/25 Range/Units 04:58 Total Bilirubin 0.7 (0.2-1.3) mg/dL AST 28 (14-36) U/L ALT 25 (6-35) U/L Alkaline Phosphatase 86 (38-126) U/L Albumin 4.4 (3.5-5.1) g/dL Urine 01/30/25 Range/Units 07:34 Urine Color Yellow (Yellow) Urine Appearance Clear (Clear) Urine pH 5.0 (5.0-9.0) Ur Specific [place] 1.042 H (1.001-1.035) Urine Protein Negative (Negative) mg/dL Urine Glucose (UA) 3+ H (Negative) mg/dL Assessment and Plan Assessment and plan (1) Essential hypertension: Code(s): I10 - Essential (primary) hypertension Status: Acute (2) Chest pain: Code(s): R07.9 - Chest pain, unspecified Status: Acute Plan 69-year-old female with past medical history of coronary artery disease presenting with chest pain. 1. Chest pain: Admit to telemetry medicine Continue with tele monitoring Troponin x2 has been negative Obtain echocardiogram Cardiology consult Continue with home dose of aspirin, statin, beta-stanford History of CHF Continue with home dose of Entresto, Jardiance Continue with p.r.n. nitro Obtain lipid panel with next set of labs 2. History of vitamin-D deficiency: Continue with vitamin-D supplementation 3. History of depression: Continue with Cymbalta 4. DVT prophylaxis: Lovenox 5. Code status: Full 6. Disposition: Admit to telemetry medicine Quality VTE Prophylaxis VTE prophylaxis: pharmacologic ordered
--- NOTE | 2025-01-30 12:44 | PM.IMHP ---
H&P: HPI History of Present Illness Date/Time: 01/30/25 12:44 [facility] Past Medical History Medical History Heart failure CAD (coronary atherosclerotic disease) Low TSH level Hx of adenomatous colonic polyps Chronic pancreatitis Dilation of biliary tract RAYMOND (obstructive sleep apnea) Cholecystectomy planned Surgical History Surgical History History of eye surgery Right tear duct H/O tubal ligation Family History Family History Sibling Family history of Parkinson's disease Mother Family history of diabetes mellitus in first degree relative Family history of heart disease in male family member before age 55 Family history of thyroid disease Diabetes mellitus Family history of coronary artery disease Acute myocardial infarction Father Family history of heart disease in male family member before age 55 Heart disease Diabetes mellitus Sibling , Covid-19 Obese Social History Social History Smoking packs per day: 0.75 Smoking cigarettes per day: 15.0 Years smoked: 42 Smoking pack-years: 31.50 Smoking status: Current every day smoker Tobacco type: cigarettes Second hand tobacco smoke exposure: No Alcohol intake: never Substance use: never Substance use type: does not use Do You Feel Safe in your Home?: Yes Lack of Transportation: No Lack of Food: Never True Current Housing: I Have Housing Concerned About Future Housing: No Difficulty Paying Gas/Electric Bills: No Difficulty Paying for Meds: No Currently Unemployed: No Education: High School Diploma/GED Difficulty w/ Childcare or Family Care: No Living arrangements: with family Additional living arrangements comments: with daughter 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 Gender identity (if verbalized by the patient): Female Spiritual care concerns: No Meds Home Medications and Allergies Home Medications ?Medication ?Instructions ?Recorded ?Confirmed ?Type alprazolam 0.5 mg tablet 0.5 mg PO BID 08/25/22 01/30/25 History aspirin 81 mg tablet,delayed 81 mg PO DAILY 08/25/22 01/30/25 History release (Adult Low Dose Aspirin) cholecalciferol (vitamin D3) 10 10 mcg PO DAILY 08/25/22 01/30/25 History mcg (400 unit) capsule duloxetine 60 mg capsule,delayed 60 mg PO DAILY 08/25/22 01/30/25 History release (Cymbalta) multivitamin (Daily Multi-Vitamin 1 tablet PO DAILY 08/25/22 01/30/25 History tablet) sacubitril 49 mg-valsartan 51 mg 1 tablet PO BID 01/05/24 01/30/25 History tablet (Entresto) rosuvastatin 40 mg tablet See Rx Instructions .Route 12/22/24 01/30/25 Rx .COMPLEX #90 tabs gabapentin 300 mg capsule 300 mg PO TID #180 caps 01/04/25 01/30/25 Rx meclizine 25 mg tablet 25 mg PO TID PRN dizziness #15 tabs 01/04/25 01/30/25 Rx empagliflozin 25 mg tablet 25 mg PO DAILY #90 tabs 01/08/25 01/30/25 Rx (Jardiance) metoprolol succinate 25 mg 25 mg PO DAILY #90 tabs 01/22/25 01/30/25 Rx tablet,extended release 24 hr docusate sodium 100 mg capsule 100 mg PO DAILY 01/30/25 01/30/25 History (Colace) Allergies Allergy/AdvReac Type Severity Reaction Status Date / Time No Known Allergies Allergy Verified 01/30/25 04:47 Vital Signs Vital Signs - 24 hr 01/30/25 04:41 01/30/25 04:50 01/30/25 08:45 Temperature 97.6 F 98.1 F Pulse Rate 70 65 60 Respiratory Rate 22 H 20 Blood Pressure 149/77 H 114/53 L Pulse Oximetry 99 97 Oxygen Delivery Room Air 01/30/25 09:17 01/30/25 10:00 01/30/25 10:07 Temperature Pulse Rate 60 61 Respiratory Rate 20 Blood Pressure Pulse Oximetry 97 92 Oxygen Delivery Room Air Room Air 01/30/25 10:54 01/30/25 11:56 01/30/25 12:00 Temperature 98.3 F Pulse Rate 65 71 60 Respiratory Rate 16 20 Blood Pressure 97/57 L Pulse Oximetry 95 97 Oxygen Delivery Room Air 01/30/25 12:00 Temperature Pulse Rate 59 L Respiratory Rate Blood Pressure Pulse Oximetry Oxygen Delivery H&P: Results Labs Labs: Short CBC 01/30/25 Range/Units 04:58 WBC 6.7 (4.5-10.0) K/mm3 Hgb 14.8 (12.0-15.0) g/dL Hct 45.4 (37.0-47.0) % Plt Count 139 L (150-375) k/mm3 BMP 01/30/25 04:58 Sodium 139 Potassium 3.6 Chloride 106 Carbon Dioxide 24 BUN 12 Creatinine 0.79 Glucose 128 H Calcium 8.8 Cardiac Enzymes 01/30/25 01/30/25 01/30/25 Range/Units 04:58 08:14 11:15 Troponin I < 0.012 < 0.012 < 0.012 (0.000-0.034) ng/mL Liver Function 01/30/25 Range/Units 04:58 Total Bilirubin 0.7 (0.2-1.3) mg/dL AST 28 (14-36) U/L ALT 25 (6-35) U/L Alkaline Phosphatase 86 (38-126) U/L Albumin 4.4 (3.5-5.1) g/dL Urine 01/30/25 Range/Units 07:34 Urine Color Yellow (Yellow) Urine Appearance Clear (Clear) Urine pH 5.0 (5.0-9.0) Ur Specific [place] 1.042 H (1.001-1.035) Urine Protein Negative (Negative) mg/dL Urine Glucose (UA) 3+ H (Negative) mg/dL
--- NOTE | 2025-01-30 13:16 | PM.CNCAR ---
Assessment and Plan Assessment and plan (1) Chest pain: Code(s): R07.9 - Chest pain, unspecified Status: Acute (2) CAD (coronary atherosclerotic disease): Code(s): I25.10 - Atherosclerotic heart disease of [place] coronary artery without angina pectoris Status: Acute Plan Diagnosis: Chest pain CAD (last catheterization in [address] of the mid LAD with gvls-[id number] and soamo-oo-brcf collaterals filling a diagonal and some antegrade flow in the LAD, moderate stenosis in mid RCA), ischemic cardiomyopathy with LVEF 25-30% by MRI (lad territory transmural infarct) Ischemic cardiomyopathy with LVEF of 25-30% and 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 Troponin X 3 negative. She has not had recurrence of pain since hospital admission. She had a catheterization in 2023 with results as listed above. 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 She has moderate stenosis in the mid RCA which can be treated medically with aspirin, statin, beta-stanford. She is scheduled for ICD placement in March as outpatient for LVEF less than 35% EKG p.r.n. for any new chest pain Sublingual nitro for p.r.n. for chest pain Continue guideline directed medical therapy for ischemic cardiomyopathy with beta-stanford, Entresto, empagliflozin Check and replace electrolytes to keep potassium greater than 4 and magnesium greater than 2 If she does not have any recurrence of chest pain then okay to discharge from Cardiology standpoint Thank you for allowing us to participate in the care of your patient. Please call us with any questions. History of Present Illness History of Present Illness Consult date/time: 01/30/25 13:16 Reason For Visit: Chest Pain Narrative: 69 y/o female h/o CAD (last catheterization in [address] of the mid LAD with othc-ke-dktm and drgvm-qy-lzwq collaterals filling a diagonal and some antegrade flow in the LAD, moderate stenosis in mid RCA), ischemic cardiomyopathy with LVEF 25-30% by MRI (lad territory transmural infarct), RAYMOND, chronic pancreatitis presents with chief complaints of sharp chest pain early this morning.. Patient states that she had been cleaning, vacuuming and moving boxes in her house yesterday. She woke up around 1:30 a.m. this morning with 3 episodes of sharp shooting pains in her left chest. She tried to write them out but after the 3rd episode she decided to present to [facility] for further evaluation. The left-sided chest pains were sharp, lasted few minutes each time and resolved spontaneously. There was no radiation. No aggravating factors. She denies similar symptoms in the past. She may have felt some shortness of breath during these episodes but denies any diaphoresis, sweating, palpitations, dizziness, lightheadedness, leg swelling, recent weight gain, presyncope, syncope, orthopnea, PND. She states that she follows with cardiology at [facility]. She had an MRI recently which showed an LVEF of 25-30% and transmural infarct in the LAD territory. She states that she is scheduled to get an ICD in March this year. Troponin x 3 negative. NT proBNP is mildly elevated to 357. EKG shows sinus rhythm with ST-T changes which are present on an old EKG in April/2024. Cardiology is consulted for further recommendations given chest pain. Review of Systems Review of Systems: A complete review of systems was performed and pertinent positives are reported in the HPI. [facility] Past Medical History Medical History Heart failure CAD (coronary atherosclerotic disease) Low TSH level Hx of adenomatous colonic polyps Chronic pancreatitis Dilation of biliary tract RAYMOND (obstructive sleep apnea) Cholecystectomy planned Surgical History Surgical History History of eye surgery Right tear duct H/O tubal ligation Family History Family History Sibling Family history of Parkinson's disease Mother Family history of diabetes mellitus in first degree relative Family history of heart disease in male family member before age 55 Family history of thyroid disease Diabetes mellitus Family history of coronary artery disease Acute myocardial infarction Father Family history of heart disease in male family member before age 55 Heart disease Diabetes mellitus Sibling , Covid-19 Obese Social History Social History Smoking packs per day: 0.75 Smoking cigarettes per day: 15.0 Years smoked: 42 Smoking pack-years: 31.50 Smoking status: Current every day smoker Tobacco type: cigarettes Second hand tobacco smoke exposure: No Alcohol intake: never Substance use: never Substance use type: does not use Do You Feel Safe in your Home?: Yes Lack of Transportation: No Lack of Food: Never True Current Housing: I Have Housing Concerned About Future Housing: No Difficulty Paying Gas/Electric Bills: No Difficulty Paying for Meds: No Currently Unemployed: No Education: High School Diploma/GED Difficulty w/ Childcare or Family Care: No Living arrangements: with family Additional living arrangements comments: with daughter Occupation/Education: retired 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 Gender identity (if verbalized by the patient): Female Spiritual care concerns: No Meds Home Medications and Allergies Home Medications ?Medication ?Instructions ?Recorded ?Confirmed ?Type alprazolam 0.5 mg tablet 0.5 mg PO BID 08/25/22 01/30/25 History aspirin 81 mg tablet,delayed 81 mg PO DAILY 08/25/22 01/30/25 History release (Adult Low Dose Aspirin) cholecalciferol (vitamin D3) 10 10 mcg PO DAILY 08/25/22 01/30/25 History mcg (400 unit) capsule duloxetine 60 mg capsule,delayed 60 mg PO DAILY 08/25/22 01/30/25 History release (Cymbalta) multivitamin (Daily Multi-Vitamin 1 tablet PO DAILY 08/25/22 01/30/25 History tablet) sacubitril 49 mg-valsartan 51 mg 1 tablet PO BID 01/05/24 01/30/25 History tablet (Entresto) rosuvastatin 40 mg tablet See Rx Instructions .Route 12/22/24 01/30/25 Rx .COMPLEX #90 tabs gabapentin 300 mg capsule 300 mg PO TID #180 caps 01/04/25 01/30/25 Rx meclizine 25 mg tablet 25 mg PO TID PRN dizziness #15 tabs 01/04/25 01/30/25 Rx empagliflozin 25 mg tablet 25 mg PO DAILY #90 tabs 01/08/25 01/30/25 Rx (Jardiance) metoprolol succinate 25 mg 25 mg PO DAILY #90 tabs 01/22/25 01/30/25 Rx tablet,extended release 24 hr docusate sodium 100 mg capsule 100 mg PO DAILY 01/30/25 01/30/25 History (Colace) Allergies Allergy/AdvReac Type Severity Reaction Status Date / Time No Known Allergies Allergy Verified 01/30/25 04:47 Vital Signs Vital Signs - 24 hr 01/30/25 04:41 01/30/25 04:50 01/30/25 08:45 Temperature 36.4 C 36.7 C Pulse Rate 70 65 60 Respiratory Rate 22 H 20 Blood Pressure 149/77 H 114/53 L Pulse Oximetry 99 97 Oxygen Delivery Room Air 01/30/25 09:17 01/30/25 10:00 01/30/25 10:07 Temperature Pulse Rate 60 61 Respiratory Rate 20 Blood Pressure Pulse Oximetry 97 92 Oxygen Delivery Room Air Room Air 01/30/25 10:54 01/30/25 11:56 01/30/25 12:00 Temperature 36.8 C Pulse Rate 65 71 60 Respiratory Rate 16 20 Blood Pressure 97/57 L Pulse Oximetry 95 97 Oxygen Delivery Room Air 01/30/25 12:00 Temperature Pulse Rate 59 L Respiratory Rate Blood Pressure Pulse Oximetry Oxygen Delivery Exam Narrative: General: Alert oriented x3, no acute distress Neck: Supple, no JVD Chest: Bilaterally clear to auscultation, no rales or rhonchi Cardiac: S1, S2 +, regular rate, regular rhythm, no murmurs or rubs Extremities: Bilateral lower extremity edema 1+, no skin rash Neurologic: Alert and oriented x3, no focal neurological deficits Results Labs and Meds 01/30/25 04:58 01/30/25 04:58 Lab results: Cardiac Enzymes 01/30/25 01/30/25 01/30/25 Range/Units 04:58 08:14 11:15 AST 28 (14-36) U/L Troponin I < 0.012 < 0.012 < 0.012 (0.000-0.034) ng/mL Coagulation 01/30/25 Range/Units 04:58 PT 14.0 (11.1-14.7) Seconds APTT 28.7 (22.3-36.8) Seconds CBC 01/30/25 Range/Units 04:58 WBC 6.7 (4.5-10.0) K/mm3 RBC 4.93 (4.2-5.4) M/mm3 Hgb 14.8 (12.0-15.0) g/dL Hct 45.4 (37.0-47.0) % Plt Count 139 L (150-375) k/mm3 Lymph # (Auto) 3.19 (0.9-3.2) K/mm3 [place] # (Auto) 0.6 (0.1-0.6) K/mm3 Eos # (Auto) 0.3 (0-0.3) K/mm3 Baso # (Auto) 0.0 (0.0-0.1) K/mm3 Comprehensive Metabolic Panel 01/30/25 Range/Units 04:58 Sodium 139 (137-145) mmol/L Potassium 3.6 (3.4-5.0) mmol/L Chloride 106 (98-107) mmol/L Carbon Dioxide 24 (22-30) mmol/L BUN 12 (7-17) mg/dL Creatinine 0.79 (0.7-1.0) mg/dL Glucose 128 H (65-110) mg/dL Calcium 8.8 (8.4-10.2) mg/dL AST 28 (14-36) U/L ALT 25 (6-35) U/L Alkaline Phosphatase 86 (38-126) U/L Total Protein 7.2 (6.3-8.2) g/dL Albumin 4.4 (3.5-5.1) g/dL Intake and Output 01/29/25 01/30/25 01/30/25 23:59 07:59 15:59 Intake Total 240 Balance 240 Intake: Oral 240 Patient Weight 01/30/25 23:59 Weight 87.6 kg
[2025-01-30] MEDS: ENOXAPARIN 40 MG/0.4 ML SYRINGE SUB-Q (13:31)
[2025-01-30] MEDS: PERFLUTREN LIPID MICROSPHERES 1.5 ML VIAL DILUTED TO 10 ML TOTAL VOLUME IV PUSH (14:51)
--- NOTE | 2025-01-30 14:51 | IVDEFINITY ---
Prior to administration of IV Definity the patient was educated on the risks and benefits of the imaging enhancing agent including potential adverse side effects. The patient verbalized understanding. Allergies were verified. No exclusion criteria were identified and at least one of the following inclusion criteria were met: 1) physician request, 2) patient technically difficult to image (per the [place] [employer] Echocardi[employer] guidelines of two or more segments not discernable within the apical view), or 3) questionable left ventricular function. ?
[2025-01-31] VITALS (14 sets, daily range): BP systolic 106–125; BP diastolic 58–68; PULSE 53–66; RESP 18–20; TEMP 36.4–37; O2SAT 92–99
[2025-01-31 04:16] LABS: Hematocrit 44.7 % (37.0-47.0); Hemoglobin 14.7 g/dL (12.0-15.0); Immature Platelet Fraction Pct 2.9 % (0.9-11.2); Mean Corpuscular HGB Conc 32.9 g/dl (32-36); Mean Corpuscular Hemoglobin 30.2 pg (26-34); Mean Corpuscular Volume 92.0 fl (80-100); Platelet Count Result 128 k/mm3 (150-375); Red Blood Count 4.86 M/mm3 (4.2-5.4); White Blood Count 5.5 K/mm3 (4.5-10.0)
[2025-01-31 04:23] LABS: Hemoglobin A1C 6.6 % (<5.7)
[2025-01-31 04:27] LABS: Anion Gap 7 mmol/L (4-12); Blood Urea Nitrogen 13 mg/dL (7-17); Calcium 8.8 mg/dL (8.4-10.2); Carbon Dioxide 25 mmol/L (22-30); Chloride 108 mmol/L (98-107); Cholesterol 145 mg/dL (0-200); Estimated CRCL calculation 59 ml/min; Estimated Glomerular Filt Rate > 60; Glucose 118 mg/dL (65-110); HDL Direct 41 mg/dL; Magnesium 2.1 mg/dL (1.6-2.3); Potassium 3.8 mmol/L (3.4-5.0); Sodium 140 mmol/L (137-145); Triglycerides 220 mg/dL (<150)
[2025-01-31] MEDS: DOCUSATE SODIUM 100 MG CAPSULE PO (08:49)
[2025-01-31] MEDS: METOPROLOL SUCCINATE EXT REL 25 MG TABCR PO (08:49)
[2025-01-31] MEDS: SACUBITRIL/VALSARTAN 49-51 MG TABLET 1 TABLET PO (08:49)
[2025-01-31] MEDS: ALPRAZolam (*CRX) 0.5 MG TABLET PO (08:49)
[2025-01-31] MEDS: ASPIRIN 81 MG ENTERIC TABLET PO (08:49)
[2025-01-31] MEDS: MULTIVITAMINS THERAPEUTIC TAB (*BKC) 1 TABLET PO (08:49)
[2025-01-31] MEDS: EMPAGLIFLOZIN 25 MG TABLET PO (08:49)
[2025-01-31] MEDS: CHOLECALCIFEROL (VITAMIN D3) 10 MCG (400 UNITS) TABLET PO (08:50)
[2025-01-31] MEDS: GABAPENTIN 300 MG CAPSULE PO (08:50)
[2025-01-31] MEDS: ROSUVASTATIN 20 MG TABLET 40 MG BY MOUTH (08:50)
[2025-01-31] MEDS: ENOXAPARIN 40 MG/0.4 ML SYRINGE SUB-Q (08:54)
[2025-01-31] MEDS: DULoxetine HCL 60 MG CAPSULE.DR PO (09:09)
--- NOTE | 2025-01-31 10:17 | P.DS_ITS ---
DS: Admitting Diagnosis Discharge Date 01/31/25 Admitting Diagnosis Chest pain DS: Discharge Diagnosis Discharge Diagnosis (1) Heart failure: Code(s): I50.9 - Heart failure, unspecified Status: Acute (2) Chest pain: Code(s): R07.9 - Chest pain, unspecified Status: Acute (3) Coronary artery disease: Qualifiers: Coronary Disease-Associated Artery/Lesion type: [place] artery [place] vs. transplanted heart: [place] heart Associated angina: with unstable angina Qualified Code(s): I25.110 - Atherosclerotic heart disease of [place] coronary artery with unstable angina pectoris Code(s): I25.10 - Atherosclerotic heart disease of [place] coronary artery without angina pectoris Status: Acute DS: Summary Hospital Course Reason for hospitalization: Chest pain Hospital Course: 69 y/o female h/o CAD (last catheterization in [address] of the mid LAD with ivew-qa-vrmk and scysx-ht-hyxr collaterals filling a diagonal and some antegrade flow in the LAD, moderate stenosis in mid RCA), ischemic cardiomyopathy with LVEF 25-30% by MRI (lad territory transmural infarct), RAYMOND, chronic pancreatitis presents with chief complaints of sharp chest pain early this morning.. Patient states that she had been cleaning, vacuuming and moving boxes in her house yesterday. She woke up around 1:30 a.m. in morning with 3 episodes of sharp shooting pains in her left chest. She had an MRI recently which showed an LVEF of 25-30% and transmural infarct in the LAD territory. She is scheduled to get an ICD in March this year. Troponin x 3 negative. NT proBNP is mildly elevated to 357. EKG shows sinus rhythm with ST-T changes which are present on an old EKG in April/2024. Cardiology was consulted for further recommendations given chest pain. Echocardiogram pretty much unchanged. Chest pain was likely musculoskeletal. Pain has improved. Patient is being discharged home in stable condition, but advised to follow up with fashion buyer as an outpatient, she follows up in [place], and keep the appointment scheduled for ICD placement in March. Status at Discharge Functional status at discharge: independent ambulation Overall status at discharge: patient is back to baseline Time Spent with Patient Time attestation: Total time spent providing and/or coordinating discharge services: Exam Narrative: General: Alert oriented x3, no acute distress Neck: Supple, no JVD Chest: Bilaterally clear to auscultation, no rales or rhonchi Cardiac: S1, S2 +, regular rate, regular rhythm, no murmurs or rubs Extremities: Bilateral lower extremity edema 1+, no skin rash Neurologic: Alert and oriented x3, no focal neurological deficits DS: Data Data Completed and Pending Labs on day of discharge: Labs from last 24 hours 01/31/25 01/31/25 01/30/25 07:24 03:58 20:16 WBC 5.5 RBC 4.86 Hgb 14.7 Hct 44.7 MCV 92.0 MCH 30.2 MCHC 32.9 RDW 13.3 Plt Count 128 L MPV 9.9 % Immature Plt Fraction 2.9 Sodium 140 Potassium 3.8 Chloride 108 H Carbon Dioxide 25 Anion Gap 7 BUN 13 Creatinine 0.81 Estim Creat Clear Calc 59 Estimated GFR > 60 Glucose 118 H POC Capillary Glucose 126 H 109 H Hemoglobin A1c 6.6 H Calcium 8.8 Magnesium 2.1 Troponin I Triglycerides 220 H Cholesterol 145 LDL Cholesterol Direct 63 HDL Direct 41 01/30/25 01/30/25 15:40 11:15 WBC RBC Hgb Hct MCV MCH MCHC RDW Plt Count MPV % Immature Plt Fraction Sodium Potassium Chloride Carbon Dioxide Anion Gap BUN Creatinine Estim Creat Clear Calc Estimated GFR Glucose POC Capillary Glucose 100 Hemoglobin A1c Calcium Magnesium Troponin I < 0.012 Triglycerides Cholesterol LDL Cholesterol Direct HDL Direct Discharge Plan Discharge Attending physician on discharge: Selam Melgar Consulting providers: Kelly Green Discharging Clinician: Selam Melgar Anticipated Discharge Date/Time: 01/31/25 10:15 Patient Disposition: Home Activity: as tolerated Diet: heart healthy Patient Instructions: Antibiotic Form, Nitroglycerin (By mouth), Empagliflozin (By mouth), Angina (DC), Chest Pain (GEN) Patient Language: Swedish Stand Alone Forms: General Discharge Information Follow-up/Referrals: Martin Lagunas MD [Primary Care Provider, Family Practice] - 2 Weeks Selam Melgar MD [Physician, Hospitalist] Discharge Medications: New nitroglycerin [Nitrostat] 0.4 mg Tablet, Sublingual 0.4 mg sublingual Q5MIN PRN (Reason: Chest Pain) Qty: 30 0RF Continued duloxetine [Cymbalta] 60 mg capsule,delayed release(DR/EC) 60 mg PO DAILY alprazolam 0.5 mg tablet 0.5 mg PO BID aspirin [Adult Low Dose Aspirin] 81 mg tablet,delayed release (DR/EC) 81 mg PO DAILY cholecalciferol (vitamin D3) 10 mcg (400 unit) capsule 10 mcg PO DAILY multivitamin [Daily Multi-Vitamin] Tablet 1 tablet PO DAILY gabapentin 300 mg capsule 300 mg PO TID Qty: 180 3RF meclizine 25 mg tablet 25 mg PO TID PRN (Reason: dizziness) Qty: 15 1RF Entresto 49-51 mg tablet 1 tablet PO BID docusate sodium [Colace] 100 mg capsule 100 mg PO DAILY rosuvastatin 40 mg tablet See Rx Instructions .ROUTE .COMPLEX Qty: 90 3RF Dose Instruction: TAKE 1 TABLET DAILY Rx Instructions: TAKE 1 TABLET DAILY Jardiance 25 mg tablet 25 mg PO DAILY Qty: 90 3RF metoprolol succinate 25 mg tablet extended release 24 hr 25 mg PO DAILY Qty: 90 1RF Date of admission: 01/30/25 08:36 Primary Care Provider: Martin Lagunas Admitting Provider: Alejandra Harris Attending physician on admission: Alejandra Harris Condition: Improved
--- NOTE | 2025-01-31 16:32 | PC.NURSE ---
On 01/31/25, the student, Alisson, provided care and completed [facility] documentation on this patient. I have reviewed the student's documentation and agree with the findings.
== END 2025-01-31 11:45 | disposition home or self-care (01) | DRG 313 ==
LOC: ANHED 07:24 → ANHIMU 01-31 10:16
PROVIDERS: Admitting Provider Family Medicine; Emergency Provider Student in an Organized Health Care Education/Training Program; PCP Family Medicine; Visit Provider Internal Medicine
DX: R07.89 Other chest pain (principal); I25.10 Atherosclerotic heart disease of native coronary artery without angina pectoris; I25.5 Ischemic cardiomyopathy; I11.0 Hypertensive heart disease with heart failure; I50.9 Heart failure, unspecified; G47.33 Obstructive sleep apnea (adult) (pediatric); E78.5 Hyperlipidemia, unspecified; E11.9 Type 2 diabetes mellitus without complications; E55.9 Vitamin D deficiency, unspecified; F32.A Depression, unspecified; F17.210 Nicotine dependence, cigarettes, uncomplicated; Z87.19 Personal history of other diseases of the digestive system; Z79.82 Long term (current) use of aspirin
CPT/HCPCS: 36415; 71045; 80048; 80053; 80061; 81001; 82948; 83036; 83735; 83880; 84484; 85025; 85027; 85055; 85610; 85730; 93005; 99285; A9270; C8929; J1650; Q9957

== ENCOUNTER 2025-04-05 13:02 | Outpatient (CLI) | payer MEDICARE, OTHER, SELFPAY ==
--- NOTE | ~2025-04-05 | CT_ITS ---
EXAMINATION:CT diagnostic chest wo con DATE: 04/05/2025 13:17 INDICATION: Lung nodule TECHNIQUE: Computed tomography (CT) of the chest was performed without intravenous contrast. The dose-length product (DLP) was 229.66 mGy-cm. COMPARISON: February 28, [address] from 2019 FINDINGS: Significantly increased size of right lower lobe nodule image 87 series 4 which now measures 1.2 x 1.1 x 0.8 cm. No other nodules or masses seen No new nodules or masses seen. Heart and great vessels stable. IMPRESSION: 1. Increased size of right lower lobe nodule highly suspicious for neoplastic lesion. Correlate with PET/CT. 2. Other findings as above. Reviewed, dictated and finalized at location A. GE INSIDE ADJUSTER IMPRESSION: 1. Increased size of right lower lobe nodule highly suspicious for neoplastic l esion. Correlate with PET/CT. 2. Other findings as above.
--- OUTSIDE RECORDS SUMMARY | 2025-04-05 15:48 | XMS_ITS | Encounter Summary ---
Author Organization [facility] Address [address] [place] [address] Phone Care Team Providers Care Knot Saw Operator Name Role Phone Martin Lagunas MD Primary Care Provider [phone] Encounter Details Date Type Department Care Team (Late st Contact Info) Description 04/01/2025 Results Follow-Up [facility] Cardiology [address] [facility] [address] [place] [id number] Rudy Franz MD [address] [facility] [address] [place] [address] ECG 12 lead Social History Tobacco Use Types Packs/Day Years Used Date Smoking Tobacco: Every Day Cigarettes Smokeless Tobacco: Never Comments Unknown Sex and Gender Information Value Date Recorded Sex Assigned at Not on file 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
--- OUTSIDE RECORDS SUMMARY | 2025-04-05 15:48 | XMS_ITS | Data Portability ---
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 Medical Superintendent variances may occur. Despite proofreading, typographical errors may occur. Occasional wrong-word or 'fiebm-e-bnzh' substitutions may have occurred due to the inherent limitations of voice recording. Read the chart carefully and recognize, using context, where substitutions have occurred. Not available 10/25/2023 13:37:37 01/24/2024 01/24/2024 This note is dictated and transcribed by [employer]. Medical Superintendent variances may occur. Despite proofreading, typographical errors may occur. Occasional wrong-word or 'lnmqn-h-qdeo' substitutions may have occurred due to the inherent limitations of voice recording. Read the chart carefully and recognize, using context, where substitutions have occurred. This note is dictated and transcribed by [employer]. Medical Superintendent variances may occur. Despite proofreading, typographical errors may occur. Occasional wrong-word or 'kqhfo-w-pfel' substitutions may have occurred due to the inherent limitations of voice recording. Read the chart carefully and recognize, using context, where substitutions have occurred. Not available 01/24/2024 14:08:32 06/12/2024 06/12/2024 This note is dictated and transcribed by [employer]. Medical Superintendent variances may occur. Despite proofreading, typographical errors may occur. Occasional wrong-word or 'xnrfd-k-nmie' substitutions may have occurred due to the inherent limitations of voice recording. Read the chart carefully and recognize, using context, where substitutions have occurred. Not available 06/12/2024 12:40:32 09/21/2024 09/21/2024 This note is dictated and transcribed by [employer]. Medical Superintendent variances may occur. Despite proofreading, typographical errors may occur. Occasional wrong-word or 'gjtyx-h-qszs' substitutions may have occurred due to the inherent limitations of voice recording. Read the chart carefully and recognize, using context, where substitutions have occurred. Not available 10/18/2024 12:29:28 12/28/2024 12/28/2024 This note is dictated and transcribed by [employer]. Medical Superintendent variances may occur. Despite proofreading, typographical errors may occur. Occasional wrong-word or 'jimud-f-sfkf' substitutions may have occurred due to the inherent limitations of voice recording. Read the chart carefully and recognize, using context, where substitutions have occurred. [email or web address] Not available 01/11/2025 12:58:21 Plan of Treatment Reminders Order Date Submit Date Provider Last Modified By Organization Details Last Modified Time Details Appointments Establish ed Patient 10 2025 11:20A M Shivam Marie DPM Not available Not available Not available Lab None recorded. Referral None recorded. Procedures None recorded. Surgeries None recorded. Imaging None recorded. Medication Orders None recorded. Patient TargetsNo targets recorded. Patient InstructionsNo instructions recorded. Reason for Referral None Reported. Problems Name Problem SNOMED Code Status Onset Date Resolution Date Notes Provider Name and Address Organization Details Recorded Time Hypercholeste rolemia 90643955 Active Not Available [facility] 3 00:59:08 Diabetes mellitus 69338426 Active Not Available [facility] 3 00:59:09 Dry skin dermatitis 539224742 Active 2021 Not Available [facility] 3 00:59:08 Foot callus 219818452 Active 2022 Shivam Marie DPM [address] [facility] [facility] [address], [place], [address] , [facility] [employer] [facility] 3 11:44:14 Heavy cigarette smoker (20-39 cigs/day) 834779971 Active 2022 Shivam Marie DPM [address], [place], [address] , [employer] 3 11:44:37 Peripheral arterial occlusive disease 193127865 Active 2022 Shivam Marie DPM [address], [place], [address] , [employer] 3 09:35:40 Dystrophia unguium 80087039 Active 2024 Shivam Marie DPM [address], [address], [place], [address] , [employer] 5 12:40:38 Problem Notes None recorded. Procedures Surgical History Date Name Laterality Status Provider Name and Address Organization Details Recorded Time 5 Nail Debridement completed Shivam Marie DPM [address], [address], [place], [address], [employer] 01/11/2025 12:58:07 5 Nail Debridement completed Shivam Marie DPM [address], [place], [address], [employer] 10/18/2024 12:28:50 5 Nail Debridement completed Shivam Marie DPM [address], [address], [place], [address], [employer] 06/12/2024 12:40:24 4 Nail Debridement completed Shivam Marie DPM [address], [place], [address], [employer] 01/24/2024 14:02:59 3 Blank Procedure Note completed Shivam Marie DPM [address], [place], [address], [employer] 04/15/2023 11:18:23 3 Nail Debridement completed Shivam Marie DPM [address], [place], [address], [facility] 08/06/2022 11:43:01 3 Callus Debridement 2-4 completed Shivam Marie DPM [address], [place], [address], [facility] [employer] [facility] 08/06/2022 11:43:14 Imaging Results None recorded. Procedure Notes None recorded. Medical Equipment None Reported. Allergies No known drug allergies Medications Name Sig Start Date Stop Date Status Note LastModified by Organization Details LastModified Time metformin 500 mg tablet active Not Available Not Available Not Available ammonium lactate 12 % lotion APPLY TOPICALLY TO THE AFFECTED AREA ON FEET ONCE DAILY NEEDED. 07/25 completed Not Available Not Available Not Available ofloxacin 0.3 % eye drops active Not Available Not Available Not Available valacyclovi r 1 gram tablet TAKE 1 TABLET BY MOUTH EVERY 8 HOURS FOR 7 DAYS 07/25 completed Not Available Not Available Not Available lisinopril 20 mg tablet 07/25 completed Not Available Not Available Not Available prednisone 20 mg tablet TAKE 2 TABLETS BY MOUTH DAILY FOR 5 DAYS 07/25 completed Not Available Not Available Not Available sulfamethox azole 800 mg-trimetho prim 160 mg tablet TAKE 1 TABLET BY MOUTH EVERY 12 HOURS active Not Available Not Available No t Available simvastatin 40 mg tablet 10/24 completed Not Available Not Available Not Available glimepiride 1 mg tablet 07/25 completed Not Available Not Available Not Available alprazolam 0.5 mg tablet TAKE 1 TABLET BY MOUTH TWICE DAILY AND 1/2 TABLET ONCE DAILY NEEDED active Not Available Not Available No t Available prednisolon e acetate 1 % eye drops,suspe nsion INSTILL 1 DROP IN THE RIGHT EYE FOUR TIMES DAILY FOR 4 DAYS active Not Available Not Available No t Available ciprofloxac in 0.3 % eye drops INSTILL 1 DROP INTO AFFECTED EYE(S) EVERY 4 HOURS FOR 7 DAYS 07/25 completed Not Available Not Available Not Available meclizine 25 mg tablet TAKE 1 TABLET BY MOUTH THREE TIMES DAILY NEEDED FOR DIZZINESS active Not Available Not Available No t Available cephalexin 500 mg capsule TAKE 1 CAPSULE BY MOUTH EVERY 12 HOURS 08/06 completed Not Available Not Available Not Available erythromyci n 5 mg/gram (0.5 %) eye ointment APPLY A SMALL AMOUNT TO STITCHES ON BOTH UPPER EYELIDS TWICE DAILY FOR 2 WEEKS active Not Available Not Available No t Available lisinopril 10 mg tablet 10/24 completed Not Available Not Available Not Available nitroglycer in 0.4 mg sublingual tablet DISSOLVE 1 TABLET UNDER THE TONGUE EVERY 5 MINUTES FOR UP TO 3 DOSES NEEDED FOR CHEST PAIN THEN CALL 911 AFTER active Not Available Not Available No t Available gabapentin 300 mg capsule active Not Available Not Available Not Available omeprazole 20 mg capsule,del ayed release 07/25 completed Not Available Not Available Not Available irbesartan 75 mg tablet active Not Available Not Available Not Available ammonium lactate 12 % topical cream APPLY TO HEEL CALLUSES TWICE DAILY NEEDED 07/25 completed Not Available Not Available Not Available codeine 10 mg-guaifene sin 100 mg/5 mL oral liquid TAKE 5 ML BY MOUTH EVERY 4 HOURS NEEDED FOR COUGH AVOID DRIVING OR OPERATING MACHINERY 07/25 completed Not Available Not Available Not Available metoprolol succinate ER 25 mg tablet,exte nded release 24 hr TAKE 1 TABLET BY MOUTH DAILY active Not Available Not Available No t Available irbesartan 150 mg tablet TAKE 1 TABLET BY MOUTH DAILY 10/24 completed Not Available Not Available Not Available levofloxaci n 750 mg tablet TAKE 1 TABLET BY MOUTH ONCE DAILY 08/06 completed Not Available Not Available Not Available ketoconazol e 2 % topical cream APPLY TOPICALLY TO THE AFFECTED AREA OF RIGHT GREAT TOENAIL ONCE DAILY. 07/25 completed Not Available Not Available Not Available cefdinir 300 mg capsule TAKE 1 CAPSULE BY MOUTH EVERY 12 HOURS active Not Available Not Available No t Available diazepam 5 mg tablet TAKE 1 TABLET BY MOUTH ONCE FOR ANXIETY 10/24 completed Not Available Not Available Not Available amoxicillin 875 mg-potassiu m clavulanate 125 mg tablet TAKE 1 TABLET BY MOUTH EVERY 12 HOURS 10/02 completed Not Available Not Available Not Available escitalopra m 10 mg tablet 07/25 completed Not Available Not Available Not Available escitalopra m 20 mg tablet 10/24 completed Not Available Not Available Not Available rosuvastati n 20 mg tablet 07/25 completed Not Available Not Available Not Available rosuvastati n 40 mg tablet Take 1 tablet every day by oral route. active Not Available Not Available No t Available escitalopra m 5 mg tablet 07/25 completed Not Available Not Available Not Available duloxetine 60 mg capsule,del ayed release Take 1 capsule every day by oral route. active Not Available Not Available No t Available eszopiclone 1 mg tablet TAKE 2 TABLETS BY MOUTH AT START OF SLEEP STUDY IF NEEDED. DO NOT TAKE AT HOME. active Not Available Not Available No t Available lidocaine 5 % topical ointment APPLY TOPICALLY THREE TIMES DAILY NEEDED FOR PAIN 07/25 completed Not Available Not Available Not Available Anoro Ellipta 62.5 mcg-25 mcg/actuati on powder for inhalation active Not Available Not Available N ot Available Jardiance 25 mg tablet active Not Available Not Available Not Available Entresto 49 mg-51 mg tablet active Not Available Not Available Not Available Centrum Adults active Not Available Not Available Not Available Vitals Date Recorded Body height Body mass index (BMI) Body weight Heart rate Respiratory rate Oxygen saturation Systolic And Diastolic Provider Name and Address Organization Details Last Updated DateTime 5 157.48 cm 34.6 kg/m2 64324.9 6 g 91 /min 14 /min 98 % 116/66 mm[Hg] Ade Keita [place] [employer] [facility]oma 12:07:06 Date Recorded Body height Body mass index (BMI) Body weight Heart rate Respiratory rate Oxygen saturation Systolic And Diastolic Provider Name and Address Organization Details Last Updated DateTime 157.48 cm 34.6 kg/m2 34632.9 6 g 74 /min 14 /min 98 % 122/75 mm[Hg] Ade Keita [place] [employer] [facility] 11:45:49 Date Recorded Body height Provider Name an d Address Organization Details Last Updated DateTime 10/25/2023 157.48 cm Mildred Torres [place] [employer] [facility] Chairish 10/25/2023 12:30:52 Date Recorded Body height Body mass index (BMI) Body weight Heart rate Body temperature Oxygen saturation Systolic And Diastolic Provider Name and Address Organization Details Last Updated DateTime 5 157.48 cm 34.6 kg/m2 93443.9 6 g 80 /min 97 [degF] 97 % 120/80 mm[Hg] KITTY Ferrari [place] - [facility] 5 12:04:39 Date Recorded Body height Body mass index (BMI) Body weight Respiratory rate Heart rate Body temperature Oxygen saturation Systolic And Diastolic Provider Name and Address Organization Details Last Updated DateTime 4 157.48 cm 34.6 kg/m2 38618.9 6 g 14 /min 88 /min 97 [degF] 98 % 120/80 mm[Hg] Amy Fordnshaw [place] [employer] 4 12:00:33 Social History Question Answer Notes LastModified by [email or web address] Details LastModified Time Tobacco Smoking Status Current Every Day Smoker Not Available [facility] 07/16/2022 00:57:45 What Is Your Level Of Caffeine Consumption? Moderate [email or web address] Information not available 12/28/2024 What Was The Date Of Your Most Recent Tobacco Screening? 12/28/2024 Information not available 12/28/2024 How Much Tobacco Do You Smoke? 0.5 PPD [email or web address] Information not available 12/28/2024 Has Tobacco Cessation Counseling Been Provided? No [email or web address] Information not available 12/28/2024 Sex: Unknown Functional Status Question Answer Note LastModified by [employer] Details LastModified Time Do you use any illicit or recreational drugs? No [email or web address] Information not available 12/28/2024 Do you or have you ever used any other forms of tobacco or nicotine? No [email or web address] Information not available 12/28/2024 What is your level of alcohol consumption? None [email or web address] Information not available 12/28/2024 Mental Status None recorded. Family History Relationship Description Onset Age of this Age Resolved Age Notes LastModified by Organization Details LastModified Time Father Diabetes mellitus [email or web address] Not available 01/2024 12:01:42 Mother Diabetes mellitus Diabet ic [email or web address] Not available 01/24/2024 12:02:01 Medical History Condition Response HIGH CHOLESTEROL / HYPERLIPIDEMIA Y DEPRESSION (INCLUDING POST ) Y DIABETES, TYPE Y DIZZINESS Y HEART DISEASE/HEART PROBLEMS Y ANXIETY DISORDER Y Gynecological HistoryNo gynecological history recorded. Obstetrics History GPAL:G 0 P 0 0 0 0 Past Encounters Encounter ID Performer Location Encounter Start Date Encounter Closed Date Diagnosis/Indication Diagnosis SNOMED-CT Code Diagnosis ICD10 Code Diagnosis IMO Codes Diagnosis Note [id number] [facility] [place] [address] [place] [address] 10/02/2021 00:00:00 10/02/2021 16:59:00 [id number] [facility] [place] [address] [place], [place] [address] 01/29/2022 00:00:00 01/29/2022 13:25:38 [id number] [facility] [place] [address] [place], [place] [address] 04/30/2022 00:00:00 04/30/2022 14:47:33 [id number] Shivam Marie DPM [facility] [place] [address] [place] [address] 08/06/2022 10:54:13 08/07/2022 10:48:29 Diabetes mellitus 77515941 E11.9 Patient educated on neuropathy , diabetes, diabetic diet, and daily foot exams. Patient is to check feet daily for new wounds, blisters, redness to prevent infection and ulceration s to the feet. Patient will return to clinic in 3 months for diabetic foot workup. Onychomyco sis of toenails 050302009 B35.1 right great toenailRx ketoconazo leThe educated on treatment optionsfol low-up in 3 months Foot callus 662550759 L8 4 bilateral heelsDebri ded without incidentCo ntinue supportive shoe gearFollow -up as needed Heavy ciga rette smoker (20-39 cigs/day) 612516697 Z72.0 treatment plan reviewed with the patientedu cated on signs and symptoms of smokingpat ient well decrease 1 cigarette weekly for the next 20 weeks [id number] Shivam Marie DPM [facility] [place] [address] [place], [place] [address] 11/30/2022 16:32:26 12/03/2022 15:00:04 Onychomycosis of toenails 976292811 B35.1 right great toenailRx ketoconazo le- continueTh e educated on treatment optionsobt ain vascular testingpen ding testing will perform a nail avulsion right great toefollow- up for procedure pending test Peripheral arterial occlusive disease 975387124 I73.9 obtain vascular testing prior to procedure [id number] Shivam Marie DPM [facility] [place] [address] [facility] [address] [place] [address] 04/15/2023 10:47:18 04/15/2023 14:07:35 Onychomycosis of toenails 526196005 B35.1 right great toenailRx ketoconazo le hold until bed healingtot al nail avulsion performed without incidentwo und care [facility]io [facility] of [facility] at present seek medical attention immediatel yfollow-up in pending sale to [facility] 10 days, restart ketoconazo le once nail bed is healed [id number] Shivam Marie DPM [facility] [place] [address] [place] [address] 04/26/2023 11:45:20 04/26/2023 14:08:55 Onychomycosis of toenails 144657007 B35.1 right great toenailRx ketoconazo le- continueto enail bed healed- secondary to total nail avulsionfo llow-up 3 months [id number] Shivam Marie DPM [facility] [place] [address] [place] [address] 07/26/2023 12:29:49 08/13/2023 16:34:39 Onychomycosis of toenails 635298002 B35.1 right great toenail healed Diabetes mellitus 228028 09 E11.9 Patient educated on neuropathy , diabetes, diabetic diet, and daily foot exams. Patient is to check feet daily for new wounds, blisters, redness to prevent infection and ulceration s to the feet. Patient will return to clinic in 3 months for diabetic foot workup. [id number] Shivam Marie DPM [facility] [place] [address] [place] [address] 10/25/2023 12:24:37 10/26/2023 11:50:37 Onychomycosis of toenails 027666534 B35.1 right great toenail healedcont ketoconazo le 2% creamrtc in2 mo Diabetes mellitus 575231 09 E11.9 Patient educated on neuropathy , diabetes, diabetic diet, and daily foot exams. Patient is to check feet daily for new wounds, blisters, redness to prevent infection and ulceration s to the feet. Patient will return to clinic in 3 months for diabetic foot workup. [id number] Shivam Marie DPM [facility] Podiatry [place] [address] [place] [address] 01/24/2024 11:55:41 01/25/2024 13:34:11 Onychomycosis of toenails 032043309 B35.1 right great toenail- doing well no onychocont ketoconazo le 2% cream, daily to nail areanails debrided without incidentrt c in 3 mo Diabetes mellitus 202311 09 E11.9 Patient educated on neuropathy , diabetes, diabetic diet, and daily foot exams. Patient is to check feet daily for new wounds, blisters, redness to prevent infection and ulceration s to the feet. Patient will return to clinic in 3 months for diabetic foot workup. [id number] Shivam Marie DPM [facility] Podiatry [place] [address] [place] [address] 06/12/2024 11:59:19 06/12/2024 13:02:40 Diabetes mellitus 03327334 E11.9 Patient educated on neuropathy , diabetes, diabetic diet, and daily foot exams. Patient is to check feet daily for new wounds, blisters, redness to prevent infection and ulceration s to the feet. Patient will return to clinic in 3 months for diabetic foot workup. Dystrophia unguium 33002 009 L60.3 Nails 1 through 10 were debrided with sharp mechanical debridemen t without incident. Nails were debrided and greater than 50% length and thickness where needed. Peripheral arterial occlusive disease 664797207 I73.9 obtain vascular testing prior to procedure [id number] Shivam Marie DPM [facility] [place] [address] [place] [address] 09/21/2024 11:41:02 10/19/2024 16:00:52 Diabetes mellitus 68960054 E11.9 Patient educated on neuropathy , diabetes, diabetic diet, and daily foot exams. Patient is to check feet daily for new wounds, blisters, redness to prevent infection and ulceration s to the feet. Patient will return to clinic in 3 months for diabetic foot workup. Dystrophia unguium 10035 009 L60.3 Nails 1 through 10 were debrided with sharp mechanical debridemen t without incident. Nails were debrided and greater than 50% length and thickness where needed. [id number] Shivam Marie DPM [facility] [place] [address] [place] [address] 12/28/2024 11:59:11 01/12/2025 12:52:37 Diabetes mellitus 30968700 E11.9 Patient educated on neuropathy , diabetes, diabetic diet, and daily foot exams. Patient is to check feet daily for new wounds, blisters, redness to prevent infection and ulceration s to the feet. Patient will return to clinic in 3 months for diabetic foot workup. Dystrophia unguium 71688 009 L60.3 Nails 1 through 10 were debrided with sharp mechanical debridemen t without incident. Nails were debrided and greater than 50% length and thickness where needed. Peripheral arterial occlusive disease 096695144 I73.9 obtain vascular testing prior to procedure Health Concerns Section Related Observation LastModified by Organization Detai ls LastModified Time None Recorded Concern Status LastModified by Organization Details LastModified Time None Recorded Advance Directives Directive None Recorded Payers Insurance Date Sequence Insurance Name Policy Number Policy Crane Covered Member ID Crane Member ID Guarantor Name 03/30/2025 1 [place] Jolly Yin [id number] Jolly Yin 04/03/2025 2 FOR LIFE ( - MEDICARE SUPPLEMENT) Fabian Humphrey [id number] Jolly Yin Notes Date Note Type Note Provider Name and Address Organization Details Recorded Time 10/25/2023 text/html . Patient is 68-year-old female diabetic who returns for diabetic foot care. Patient also follows up for toenail fungus of the right great toenail which she had the toenail removed it is about 70% regrown and normal in nature. Patient continues daily use of the ketoconazole she denies needing any refills. Patient denies any other complaints. Shivam Marie DPM [address], [place], [address], [employer] 10/25/2023 13:38:59 01/24/2024 text/html . Patient is a 68-year-old female diabetic who returns the office for routine foot care. Patient overall is doing well she continues gabapentin and metformin for diabetes and neuropathy. Patient states she has not had any wounds, calluses to the foot. Patient denies any pain with walking. Patient states she does have numbness and tingling of her lower extremity. Patient would like her nails cut as she can not bend over to cut them. Patient states her toenail procedure area continues to do well and she is very happy with the outcomes. Shivam Marie DPM [address], [place], [address], [employer] 01/24/2024 14:10:43 06/12/2024 text/html . Patient is a 68-year-old female diabetic who returns the office for diabetic foot care she states overall she is doing well she states that she was recently seen by Cardiology she states that she has only 30% of her heart currently working. Patient states she also has an aneurysm and may need valve replacement for heart and the aneurysm fixed. Patient states overall her feet have been doing well she has had some mild swelling. Patient states she has not had any open wounds or foot pain she states her nails are long and thick and she is unable to cut them. Patient denies any other complaints. Shivam Marie DPM [address], [place], [address], [employer] 06/12/2024 12:41:41 09/21/2024 text/html . Patient is a 69-year-old female diabetic who returns for diabetic foot care. Patient states overall she is doing well she denies any open wounds or injury the feet she states her nails are long would like to have them cut. Patient denies any other complaints. Shivam Marie DPM [address], [place], [address], [employer] 10/18/2024 12:29:54 12/28/2024 text/html . Patient is a 69-year-old female diabetic who returns for diabetic foot care. Patient denies any other complaints. Shivam Marie DPM [address], [place], [place], [id number], [employer] 01/11/2025 12:58:57 OBGyn Episode No OBEpisode recorded.
--- OUTSIDE RECORDS SUMMARY | 2025-04-05 15:48 | XMS_ITS | Clinical Summary ---
Author Organization [facility] Address [address] [place] [phone] Care Team Providers Care Residential Mortgage Manager Name Role Phone Martin Lagunas MD Primary Care Provider [phone] Allergies No known active allergies Medications Xanax 0.5 mg tablet Take 1 tablet (0.5 mg total) by mouth every 12 hours 05/03/2017 Active duloxetine HCl (CYMBALTA ORAL) Take 1 capsule by mouth daily 50 mg 05/03/2017 Active metFORMIN (Glucophage) 500 mg tablet Take 1 tablet (500 mg total) by mouth daily 10/08/2021 Active metoprolol XL (TOPROL-XL) 25 mg extended release tablet Take 1 tablet (25 mg total) by mouth daily 08/19/2023 Active Crestor 20 mg tablet Take 1 tablet (20 mg total) by mouth daily 10/08/2021 Active gabapentin (NEURONTIN) 300 mg capsule Take 1 capsule (300 mg total) by mouth 2 (two) times a day Active aspirin 81 mg enteric coated tablet Take 1 tablet (81 mg total) by mouth daily Active vitamin D3-vitamin K2 1,250-200 mcg capsule Take 5,000 mcg by mouth Active multivit-minera p-mtpa-ujkslz tablet Take by mouth Active meclizine (ANTIVERT) 25 mg tablet as needed 09/10/2023 Active Jardiance 25 mg tablet Oral for 90 Days Active Entresto 49-51 mg tablet TAKE 1 TABLET TWICE A DAY 180 tablet 3 01/09/2025 Active Active Problems Problem Noted Date Diagnosed Date Coronary artery disease invo lving [place] coronary artery of [place] heart without angina pectoris 05/04/2024 Heart failure with mildly re duced ejection fraction (HFmrEF) 05/04/2024 Primary hypertension 05/04/2024 Mixed hyperlipidemia 05/04/2024 Dizziness and giddiness 09/14/2023 Sensation of fullness in both ears 09/14/2023 Tinnitus of both ears 09/14/2023 Impacted cerumen of right ear 09/14/2023 Encounters Date Type Department Care Team Description 04/04/2025 Telephone [facility] Cardiology [address] [facility] 8[address] [place] [address] [place] [phone] Rudy Franz MD 04/01/2025 Results Follow-Up [facility] Cardiology [address] [place] [address] 3 [address] [place] [phone] Rudy Franz MD ECG 12 lead 03/29/2025 10:45 AM COMPLEX CARE NURSE Office Visit [facility] Cardiology [address] [place] [address] 3 [address] [place] [phone] Rudy Franz MD Coronary artery disease involving [place] coronary artery of [place] heart without angina pectoris (Primary Dx); Heart failure with mildly reduced ejection fraction (HFmrEF) 03/28/2025 Documentation [facility] Medicine Scheduling [address] [place] [address] iJan Zafar DOC 01/31/2025 Orders Only [facility] Cardiology [address] [place] [phone] Kelly Green MD 01/04/2025 Telephone [facility] Cardiology [address] [facility] 8[address] [place] [address] [place] [phone] Vandana Crandall from Last 3 Months Surgical History Surgery Date Site/Laterality Comments TUBAL LIGATION CHOLECYSTECTOMY TEAR DUCT SURGERY CARDIAC CATHETERIZATION Medical History Medical History Date Comments Hypertension Hyperlipidemia Diabetes mellitus Sleep apnea Anxiety Heart disease History of [...] on file Legal Sex Female 1:58 AM COMPLEX CARE NURSE Gender Identity Not on file Sexual Orientation Not on file Last Filed Vital Signs Vital Sign Reading Time Taken Comments Blood Pressure 112/80 03/29/2025 10:39 AM COMPLEX CARE NURSE Pulse 73 03/29/2025 10:39 AM COMPLEX CARE NURSE Temperature - - Respiratory Rate 16 07/06/2024 1:04 PM COMPLEX CARE NURSE Oxygen Saturation 96% 03/29/2025 10:39 AM COMPLEX CARE NURSE Inhaled Oxygen Concentration - - Weight 83 kg (183 lb) 03/29/2025 10:39 AM COMPLEX CARE NURSE Height 160 cm (5' 3) 03/29/2025 10:39 AM COMPLEX CARE NURSE Body Mass Index 32.42 03/29/2025 10:39 AM COMPLEX CARE NURSE Plan of Treatment Health Maintenance Due Date [...] Procedure Name Priority Date/Time Associated Diagnosis Comments ECG 12-LEAD Routine 03/29/2025 10:45 AM COMPLEX CARE NURSE Coronary artery disease involving [place] coronary artery of [place] heart without angina pectoris CARDIOLOGY DOCUMENT SCAN Routine 01/30/2025 4:41 PM CDT from Last 3 Months Results * ECG 12 lead (03/29/2025 10:45 AM COMPLEX CARE NURSE) us Rudy Franz MD ECG ORDERABLES Final R esult * Cardiology Document Scan (01/30/2025 4:41 PM CDT) Anatomical Region Laterality Modality Other us Kelly Green MD CV CARDIAC SERVICES PROCEDU RES Final Result from Last 3 Months Insurance MEDICARE FOR LIFE MEDICARE FOR LIFE Care Teams Residential Mortgage Manager Relationship Specialty Start Date End Date Martin Lagunas MD [address] [place] [address] PCP - General Family Medicine 07/28/23
--- OUTSIDE RECORDS SUMMARY | 2025-04-05 15:48 | XMS_ITS | Clinical Summary ---
Author Organization [facility] Address [address] [place] [address] Care Team Providers Care Stator Plate Washer Name Role Phone Unavailable Primary Care Provider [...] Scan (General) 2021 COVID-19 Vaccine ( - 2024-2 6 season) 2025 Influenza Adult (#1) 2025 RSV Immunization or 60+ Years (1 - 1-dose 75+ series) 09/10/2031 Hepatitis A Vaccines Aged Out No long er eligible based on patient's age to complete this topic Meningococcal B Vaccine Aged Out No l onger eligible based on patient's age to complete this topic Meningococcal Vaccine Aged Out No jazmyne evangelist eligible based on patient's age to complete this topic RSV Immunizations Under 20 Months Aged Out No longer eligible based on patient's age to complete this topic
--- OUTSIDE RECORDS SUMMARY | 2025-04-05 15:48 | XMS_ITS | Patient Health Record ---
Author Organization [facility] [employer] Address [address] [place] [address] Care Team Providers Care High School Business Teacher Name Role Phone Bebo GARCIA, Martin Primary Care Provider Unavaila Yudith Raman Unavailable [phone] AndreyAlbertCalli Unavailable [phone] Allergies No Known Allergies Results Component Value Reference Range Notes UDT Reviewed date:10/23/2024 12:18:00 PM Interpretation: Performing Lab: Notes/Report: Amphetamine (AMP) n 0 - 1000 ng/ml Buprenorphine (BUP) n 0 - 10 ng/ml Oxazepam (BZO) p 0 - 300 ng/ml Cocaine (HODA) n 0 - 300 ng/ml Methamphetamine (mAMP) n 0 - 300 ng/ml Methylenedioxymethamphetamine (MDMA) n 0 - 500 ng/ml Morphine (MOP) n 0 - 25 ng/ml Methadone (MTD) n 0 - 300 ng/ml Oxycodone (OXY) n 0 - 300 ng/ml THC n 0 - 50 ng/ml x n 0 - 1000 ng/ml x n 0 - 1000 ng/ml x n 0 - 300 ng/ml x n 0 - 300 ng/ml x n [...] ASPIRIN 81 MG CHEWABLE TABLET *Reorder from [facility] for eRx and Interaction Alerts* 08/03/2023 Active DULoxetine HCl 60 mg Capsule Delayed Release Particles TAKE 1 CAPSULE DAILY Active Crestor 40 MG Tablet 1 tablet Orally Once a day Active Entresto 49-51 MG Tablet 1 tablet Orally Twice a day Active Immunizations Vaccine Route Administration Date Status Comme nts KupiBonusntCrowdasaurus Covid-19 Vac cine 2nd dose Unknown 04/08/2021 [...] Risk Notes Problem Mild recurrent major depression (80169334) Major depressive disorder, recurrent, mild (F33.0) 2023 Active confirmed Problem Moderate recurrent major depression (53046387) Major depressive disorder, recurrent, moderate (F33.1) Active confirmed Problem Generalized anxiety disorder (18949860) Generalized anxiety disorder (F41.1) 2023 Active confirmed Problem Posttraumatic stress disorder (21590120) Post-traumatic stress disorder, chronic (F43.12) 2023 Active confirmed Problem Sleep apnea (19665927) Sleep apnea, unspecified (G47.30) 2023 Active confirmed Problem Obstructive sleep apnea (73217786) Obstructive sleep apnea (G47.33) Active confirmed Problem Neuropathy (047109403) Neuropathy (G62.9) Active confirmed Problem Hypercholesterolemia (56986152) Hypercholesterolemia (E78.00) Active confirmed Problem Tobacco user (211920048) Cigarette nicotine dependence without complication (F17.210) Active confirmed Problem Tobacco use (330443510) Nicotine use (Z72.0) Active confirmed Problem Diabetes mellitus (17034589) Diabetes mellitus (E11.9) Active confirmed Vital Signs Heart Rate 80 /min 01/23/2025 Height-cm 157.48 cm 01/23/2025 Blood pressure diastolic 74 mm Hg 01/23/2025 Weight-kg 85.73 kg 01/23/2025 Height 62.00 in 01/23/2025 Blood pressure systolic 114 mm Hg 01/23/2025 Weight 189 lbs 01/23/2025 BMI 34.56 kg/m2 01/23/2025 Encounters Encounter Location Date Provider Diagnosis [facility] [address] [address] 04/25/2024 Calli Balderas Generalized anxiety disorder F41.1 ; Post-traumatic stress disorder, chronic F43.12 ; Major depressive disorder, recurrent episode, moderate F33.1 and Sleep apnea, unspecified G47.30 [facility] [address] [address] 07/21/2024 Calli Balderas Generalized anxiety disorder F41.1 ; Post-traumatic stress disorder, chronic F43.12 ; Major depressive disorder, recurrent episode, moderate F33.1 and Sleep apnea, unspecified G47.30 [facility] [address] [address] 10/23/2024 Calli Balderas Major depressive disorder, recurrent, mild F33.0 ; Generalized anxiety disorder F41.1 ; Obstructive sleep apnea G47.33 ; Nicotine use Z72.0 ; Encounter for screening for depression Z13.31 and Encounter for screening for cardiovascular disorders Z13.6 [facility] [address] [address] 01/23/2025 Calli Balderas Generalized anxiety disorder F41.1 ; Major depressive disorder, recurrent, moderate F33.1 and Neuropathy G62.9 [facility] [address] [place] [address] 04/14/2024 Calli Balderas Generalized anxiety disorder F41.1 [facility] [employer] [facility] [address] [facility] [address] [facility] [address] [place] [address] 07/21/2024 [facility] [address] [facility] [address] [facility] [address] [place] [address] 09/28/2024 Calli Balderas Assessments Encounter Date Diagnosis (ICD Code) Assessment Notes Treatment Notes Treatment Clinical Notes Section Notes 04/14/2024 Generalized anxiety disorder (ICD-10 - F41.1) 04/25/2024 Generalized anxiety disorder (ICD-10 - F41.1) [...] needed - discussed short term relief for longshore equipment operator problem, risks of halfway use, use with sleep apnea, use in [...] needed - discussed short term relief for longshore equipment operator problem, risks of longshore equipment operator use, use with sleep apnea, use in [...] needed - discussed short 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 10/23/2024 Major depressive disorder, recurrent, mild (ICD-10 - F33.0) 10/23/2024 Generalized anxiety disorder (ICD-10 - F41.1) 01/23/2025 Major depressive disorder, recurrent, moderate (ICD-10 - F33.1) neuroptahy 01/23/2025 Generalized anxiety disorder (ICD-10 - F41.1) neuroptahy 07/21/2024 Generalized anxiety disorder (ICD-10 - F41.1) 07/21/2024 Post-traumatic stress disorder, chronic (ICD-10 - F43.12) 01/23/2025 Neuropathy (ICD-10 - G62.9) neuroptahy 10/23/2024 Obstructive sleep apnea (ICD-10 - G47.33) 04/25/2024 Sleep apnea, unspecified (ICD-10 - G47.30) [...] needed - discussed short term relief for halfway problem, risks of halfway use, use with sleep apnea, use in [...] and address concerns or symptom changes. 07/21/2024 Major depressive disorder, recurrent episode, moderate (ICD-10 - F33.1) 10/23/2024 Nicotine use (ICD-10 - Z72.0) 07/21/2024 Sleep apnea, unspecified (ICD-10 - G47.30) 10/23/2024 Encounter for screening for depression (ICD-10 - Z13.31) 10/23/2024 Encounter for screening for cardiovascular disorders [...] any cardiac symptoms - Follow up with specimen transporter on the as scheduled Anxiety and Insomnia [...] - Discuss potential sleep medication options with specimen transporter, including hydroxyzine or mirtazapine - Follow up in three months or sooner if needed Balance Disorder Assessment: Patient reports 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 Currently undergoing brain balance therapy at [facility], as referred by Dr. Rock's office. Plan: - Continue brain balance therapy at [facility] Obstructive Sleep Apnea Assessment: Patient reports use of CPAP machine, indicating diagnosed obstructive sleep apnea. Plan: - Continue CPAP therapy as prescribed Constipation Assessment: Patient reports constipation as a side effect of current medications. Plan: - Continue fiber supplementation for constipation management 10/23/2024 Jose Carlos Yin is a female patient with a [...] using Xanax during a recent trip to [place], indicating possible situational anxiety. Plan: - Continue [...] on March 29 - Follow up with specimen transporter in May (patient to schedule appointment 3 [...] Plan Of Treatment Next Appt Details Provider Name:Yudith Chow, 04/23/2025 01:00:00 PM, [address] [facility] [address] [facility] [address], [place], [address], Insurance Providers Payer Name Payer Address Payer Phone Subscriber Number Group Number Insured Name Patient Relationship to Insured Coverage Start Date Coverage End Date Medicare-[place] Medicare [address] [place] [phone] [id number] LEXI YIN Self - patient is the insured For Life - Medicare Supplement [address] [place] [address] [id number] LEXI YIN - patient is the insured Medical (General) History Medical History History ICD Code Problems: Chronic post-traumatic stress disorder Generalized anxiety disorder Long-term drug therapy- lorazepam Major Depressive Disorder Morbid obesity Hypercholesterolemia E78.00 Diabetes mellitus E11.9 Cigarette nicotine dependence without co mplication F17.210 Obstructive sleep apnea G47.33 Surgical History Surgery Date(Month/Year) cardiac cath 07/2023
--- OUTSIDE RECORDS SUMMARY | 2025-04-05 15:48 | XMS_ITS | Encounter Summary ---
Author Organization [facility] Address [address] [place] [address] Phone Care Team Providers Care Filler Spreader Name Role Phone Martin Lagunas MD Primary Care Provider + [phone] Encounter Details Date Type Department Care Team (Late st Contact Info) Description 04/04/[address] [facility] Cardiology [address] [facility] 8th [place] [address] [place] [phone] Rudy Franz MD [address] [facility] [address] [place] [address] Social History Tobacco Use Types Packs/Day Years Used Date Smoking Tobacco: Every Day Cigarettes Smokeless Tobacco: Never Comments Unknown Sex and Gender Information Value Date Recorded Sex Assigned at Not on file Legal Sex Female 1:58 AM RESEARCH INSTRUMENTATION TECHNICIAN Gender Identity Not on file Sexual Orientation Not on file documented as of this encounter Miscellaneous Notes * Telephone Encounter - Frances Cuenca RN - 04/04/2025 3:10 PM CST Pt was seen by Dr. Franz on March 29, 2025 and recommendation was that she could proceed with implant of dual chamber ICD or could hold off as EF was noted boarder line at 35%. I spoke with the pt to let her know I was f/u and to see if she wanted to go ahead with a date for the ICD implant. She said that she wanted to hold off for now and Dr. Franz told her she could at the visit. She has af/u with her primary wrecker driver May 2025 for f/u and I told her to reach out if anything changes. She was very appreciative of the f/u call. ARCH INSTRUMENTATION TECHNICIAN documented in this encounter Plan of Treatment Not on file documented as of this encounter Visit Diagnoses Not on filedocumented in this encounter Care Teams Filler Spreader Relationship Specialty Start Date End Date Martin Lagunas MD [address] [place] [address] PCP - General Family Medicine 07/28/23 documented as of this encounter
== END 2025-04-05 13:03 | disposition home or self-care (01) ==
PROVIDERS: PCP Family Medicine; Visit Provider Internal Medicine Critical Care Medicine
DX: R91.1 Solitary pulmonary nodule (principal)
CPT/HCPCS: 71250